=== PATIENT | female | born 1965 | race Caucasian/White ===

== ENCOUNTER 2016-08-14 12:55 | Inpatient (IN) | payer OTHER ==
[2016-08-14] VITALS (8 sets, daily range): BP systolic 120–143; BP diastolic 53–64
[~2016-08-14] VITALS: Ht 157.5 cm; Wt 83.0 kg
[~2016-08-14 12:55] MED LIST: ACCOLATE20 MG PO; ALPHAGAN P0.1 % OU; AMOXICILLIN500 MG PO; AUGMENTIN875TAB PO; BACTRIM DS1 TAB PO; CEFEPIME1 GM IM; CELECOXIB100 MG PO; CUBICIN500 MG IV; FLUTICASONE50 MCG; GLYBURIDE MICRON3 MG PO; HALOPERIDOL0.5 MG PO; HYDROCHLOROT50 MG PO; IPRATROPIU0.5 MG/3 M IN; LASIX40 MG PO; LEVAQUIN750 MG PO; LEVOTHYROXIN50 MC1 PO; LEVOTHYROXIN50 MCG PO; LIPITOR20 M1 PO; LISINOPRIL10 MG PO; MECLIZINE25 MG PO; METFORMIN500 MG PO; NEBULIZE1; NICOTINE T21 MG/PATC TD; PAXIL40 MG PO; POT CHLORIDE10 ME1 PO; PREDNISONE10 MG PO; PREDNISONE20 MG PO; PROVENTIL0.083 % INH; SYMBICORT1 AE1 IN; TRAMADOL HCL50 MG PO; TRAVATAN Z0.004 % OP; TRAZODONE50 MG PO; TRIFLUOPERAZ2 MG PO
[2016-08-14 13:46] LABS: HEMATOCRIT 49.9 % (37.0-47.0); HEMOGLOBIN 13.9 g/dl (12.0-16.0); IMMATURE GRANULOCYTES 0.1 % (0.0-1.0); MEAN CELL VOLUME 70.1 fL CALC (80.0-100.0); MEAN CORPUSCULAR HGB 19.5 pG CALC (26.0-32.0); MEAN CORPUSCULAR HGB CONC 27.9 g/L CALC (32.0-36.0); NEUT# 5.36 thou/uL (2.00-7.15); RED BLOOD COUNT 7.12 mill/uL (4.20-5.60); RED CELL DISTRI WIDTH 22.8 % (11.5-15.5)
[2016-08-14 13:59] LABS: INTERNATIONAL NORMALIZED RATIO 1.3 RATIO (0.7-1.3); PROTHROMBIN TIME 13.8 SECONDS (9.0-12.5)
[2016-08-14 14:02] LABS: ALKALINE PHOSPHATASE 78 u/l (38-126); ANION GAP 13 (6-22 (CALC)); BILIRUBIN, TOTAL 1.1 mg/dL (0.0-1.4); BUN 13 mg/dL (7-17); BUN/CREATININE RATIO 24 (12-20 (CALC)); CALCIUM 9.1 mg/dL (8.4-10.2); CARBON DIOXIDE 35 mmol/l (22-30); CHLORIDE 90 mmol/l (95-108); CREATININE 0.5 mg/dL (0.5-1.0); GFR > 60 ML/MIN (>=60 (CALC)); GFR FOR AFR.AMER. > 60 ML/MIN (>=60 (CALC)); GLUCOSE 122 mg/dL (65-105); POTASSIUM 4.1 mmol/l (3.5-5.1); SGOT/AST 33 u/l (14-36); SGPT/ALT 32 u/l (9-52); SODIUM 134 mmol/l (137-146); TOTAL PROTEIN 7.5 g/dL (6.3-8.2)
[2016-08-14 14:13] LABS: MYOGLOBIN 47 ng/mL (0 - 62)
[2016-08-14] MEDS ORDERED: OXYBUTYNIN5 M1 PO (14:54)
[2016-08-14] MEDS ORDERED: LIPITOR20 MG PO (14:55)
[2016-08-14] MEDS ORDERED: CELEBREX100 M1 PO (14:55)
[2016-08-14] MEDS ORDERED: FLUTICASONE50 MCG (14:56)
[2016-08-14] MEDS ORDERED: PAROXETINE10 MG PO (14:57)
[2016-08-14] MEDS ORDERED: LISINOPRIL5 MG PO (14:57)
[2016-08-14] MEDS ORDERED: COMBIGAN0.2 MG/0.5 OU (14:58)
[2016-08-14] MEDS ORDERED: LANTUS SOLOSTAR SC (14:59)
[2016-08-14] MEDS ORDERED: QVAR40 MCG IN (15:00)
[2016-08-14] MEDS ORDERED: ACCOLATE20 MG PO (15:00)
[2016-08-14] MEDS ORDERED: SYMBICORT1 AE1 IN (15:15)
[2016-08-14] MEDS ORDERED: LEVOTHYROXIN50 MCG PO (15:16)
[2016-08-14] MEDS ORDERED: IPRATROPIU0.5 MG/3 M IN (15:16)
[2016-08-14] MEDS ORDERED: METFORMIN500 MG PO (15:17)
[2016-08-14] MEDS ORDERED: PROVENTIL HFA IN (15:38)
[2016-08-14] MEDS ORDERED: FUROSEMIDE40 MG PO (15:38)
[2016-08-14] MEDS ORDERED: TRAMADOL HCL50 MG PO (15:39)
[2016-08-14] MEDS ORDERED: LYRICA50 MG PO (15:39)
[2016-08-14 17:31] LABS: URINE BLOOD DIPSTICK NEGATIVE (NEGATIVE); URINE CLARITY CLEAR; URINE COLOR YELLOW; URINE GLUCOSE - DIPSTICK NEGATIVE (NEGATIVE); URINE KETONE NEGATIVE (NEGATIVE); URINE LEUK ESTERASE NEGATIVE (NEGATIVE); URINE NITRITE - DIPSTICK NEGATIVE (Negative); URINE PROTEIN - DIPSTICK 100 mg/dL (NEG-TRACE); URINE SPECIFIC GRAVITY 1.025
[2016-08-14 17:58] LABS: URINE BILIRUBIN - DIPSTICK SMALL (NEGATIVE); URINE MUCUS FEW hpf (NONE-FEW); URINE SQUAMOUS EPITHELIAL CELL FEW EPI/hpf (0-FEW)
[2016-08-15] VITALS (10 sets, daily range): BP systolic 118–137; BP diastolic 48–63
[2016-08-15 06:19] LABS: HEMATOCRIT 45.6 % (37.0-47.0); HEMOGLOBIN 13.1 g/dl (12.0-16.0); IMMATURE GRANULOCYTES 0.5 % (0.0-1.0); MEAN CELL VOLUME 69.2 fL CALC (80.0-100.0); MEAN CORPUSCULAR HGB 19.9 pG CALC (26.0-32.0); MEAN CORPUSCULAR HGB CONC 28.7 g/L CALC (32.0-36.0); NEUT# 5.11 thou/uL (2.00-7.15); RED BLOOD COUNT 6.59 mill/uL (4.20-5.60); RED CELL DISTRI WIDTH 22.4 % (11.5-15.5)
[2016-08-15 06:32] LABS: ALBUMIN 3.4 g/dL (3.2-5.0); ALKALINE PHOSPHATASE 69 u/l (38-126); ANION GAP 14 (6-22 (CALC)); BILIRUBIN, TOTAL 0.9 mg/dL (0.0-1.4); BUN 14 mg/dL (7-17); BUN/CREATININE RATIO 29 (12-20 (CALC)); CALCIUM 9.1 mg/dL (8.4-10.2); CARBON DIOXIDE 36 mmol/l (22-30); CHLORIDE 90 mmol/l (95-108); CREATININE 0.5 mg/dL (0.5-1.0); GFR > 60 ML/MIN (>=60 (CALC)); GFR FOR AFR.AMER. > 60 ML/MIN (>=60 (CALC)); GLUCOSE 120 mg/dL (65-105); POTASSIUM 4.8 mmol/l (3.5-5.1); SGOT/AST 38 u/l (14-36); SGPT/ALT 31 u/l (9-52); SODIUM 135 mmol/l (137-146); TOTAL PROTEIN 6.4 g/dL (6.3-8.2)
[2016-08-16] VITALS (13 sets, daily range): BP systolic 100–140; BP diastolic 51–70
[2016-08-16 04:23] LABS: HEMATOCRIT 45.1 % (37.0-47.0); HEMOGLOBIN 12.7 g/dl (12.0-16.0); IMMATURE GRANULOCYTES 0.4 % (0.0-1.0); MEAN CELL VOLUME 70.2 fL CALC (80.0-100.0); MEAN CORPUSCULAR HGB 19.8 pG CALC (26.0-32.0); MEAN CORPUSCULAR HGB CONC 28.2 g/L CALC (32.0-36.0); NEUT# 8.08 thou/uL (2.00-7.15); RED BLOOD COUNT 6.42 mill/uL (4.20-5.60); RED CELL DISTRI WIDTH 22.4 % (11.5-15.5)
[2016-08-16 04:51] LABS: ANION GAP 14 (6-22 (CALC)); BUN 17 mg/dL (7-17); BUN/CREATININE RATIO 35 (12-20 (CALC)); CALCIUM 9.4 mg/dL (8.4-10.2); CARBON DIOXIDE 36 mmol/l (22-30); CHLORIDE 89 mmol/l (95-108); CREATININE 0.5 mg/dL (0.5-1.0); GFR > 60 ML/MIN (>=60 (CALC)); GFR FOR AFR.AMER. > 60 ML/MIN (>=60 (CALC)); GLUCOSE 106 mg/dL (65-105); POTASSIUM 5.1 mmol/l (3.5-5.1); SODIUM 133 mmol/l (137-146)
[2016-08-17] VITALS (10 sets, daily range): BP systolic 111–141; BP diastolic 59–70
[2016-08-17 05:15] LABS: HEMATOCRIT 46.1 % (37.0-47.0); HEMOGLOBIN 13.1 g/dl (12.0-16.0); IMMATURE GRANULOCYTES 0.5 % (0.0-1.0); MEAN CORPUSCULAR HGB 19.9 pG CALC (26.0-32.0); MEAN CORPUSCULAR HGB CONC 28.4 g/L CALC (32.0-36.0); NEUT# 7.18 thou/uL (2.00-7.15); RED BLOOD COUNT 6.59 mill/uL (4.20-5.60); RED CELL DISTRI WIDTH 22.4 % (11.5-15.5)
[2016-08-17 05:26] LABS: BUN 18 mg/dL (7-17); BUN/CREATININE RATIO 35 (12-20 (CALC)); CALCIUM 9.6 mg/dL (8.4-10.2); CARBON DIOXIDE 37 mmol/l (22-30); CHLORIDE 88 mmol/l (95-108); CREATININE 0.5 mg/dL (0.5-1.0); GFR > 60 ML/MIN (>=60 (CALC)); GFR FOR AFR.AMER. > 60 ML/MIN (>=60 (CALC)); GLUCOSE 139 mg/dL (65-105); MAGNESIUM 1.7 mg/dL (1.6-2.3); SODIUM 134 mmol/l (137-146)
[2016-08-17 05:46] LABS: ANION GAP 14 (6-22 (CALC)); POTASSIUM 5.4 mmol/l (3.5-5.1)
[2016-08-18 03:05] VITALS: BP 132/68
[2016-08-18 07:32] LABS: CARBON DIOXIDE 39 mmol/l (22-30)
[2016-08-18 07:53] VITALS: BP 147/74
[2016-08-18 08:04] LABS: BUN 22 mg/dL (7-17); BUN/CREATININE RATIO 40 (12-20 (CALC)); CALCIUM 10.1 mg/dL (8.4-10.2); CHLORIDE 86 mmol/l (95-108); CREATININE 0.6 mg/dL (0.5-1.0); GFR > 60 ML/MIN (>=60 (CALC)); GFR FOR AFR.AMER. > 60 ML/MIN (>=60 (CALC)); GLUCOSE 97 mg/dL (65-105); SODIUM 133 mmol/l (137-146)
[2016-08-18 08:05] LABS: ANION GAP 15 (6-22 (CALC)); POTASSIUM 5.2 mmol/l (3.5-5.1)
[2016-08-18] MEDS ORDERED: LOPRESSOR25 MG PO (09:20)
[2016-08-18] MEDS ORDERED: DOXYCYC MONO100 M1 PO (09:23)
[2016-08-18] MEDS ORDERED: PREDNISONE10 MG PO (09:23)
[2016-08-18 12:30] VITALS: BP 142/60
== END 2016-08-18 14:56 | DRG 189 ==
LOC: ENPENDDIS → ED 12:55 → ED-I 15:58 → ED 16:49 → ICU 16:50 → MS2 08-17 12:27
PROVIDERS: Emergency Medicine; Internal Medicine; ADMIT Internal Medicine; ATTEND Internal Medicine
PROC: 5A09357 Assistance with Respiratory Ventilation, Less than 24 Consecutive Hours, Continuous Positive Airway Pressure (ICD-10-PCS; principal; 2016-08-14)
DX: J96.22 Acute and chronic respiratory failure with hypercapnia (principal); E87.3 Alkalosis; I13.0 Hypertensive heart and chronic kidney disease with heart failure and stage 1 through stage 4 chronic kidney disease, or unspecified chronic kidney disease; J44.0 Chronic obstructive pulmonary disease with (acute) lower respiratory infection; E11.22 Type 2 diabetes mellitus with diabetic chronic kidney disease; I50.9 Heart failure, unspecified; J44.1 Chronic obstructive pulmonary disease with (acute) exacerbation; J96.21 Acute and chronic respiratory failure with hypoxia; J20.9 Acute bronchitis, unspecified; E11.40 Type 2 diabetes mellitus with diabetic neuropathy, unspecified; I27.81 Cor pulmonale (chronic); N18.1 Chronic kidney disease, stage 1; E11.51 Type 2 diabetes mellitus with diabetic peripheral angiopathy without gangrene; I25.10 Atherosclerotic heart disease of native coronary artery without angina pectoris; E03.9 Hypothyroidism, unspecified; E78.5 Hyperlipidemia, unspecified; Z99.81 Dependence on supplemental oxygen; Z87.891 Personal history of nicotine dependence
CPT/HCPCS: J1650

== ENCOUNTER 2017-01-29 16:23 | Emergency (ER) | payer OTHER ==
[~2017-01-29 16:23] MED LIST changes: +CELEBREX100 M1 PO; +COMBIGAN0.2 MG/0.5 OU; +DOXYCYC MONO100 M1 PO; +FUROSEMIDE40 MG PO; +LANTUS SOLOSTAR SC; +LIPITOR20 MG PO; +LISINOPRIL5 MG PO; +LOPRESSOR25 MG PO; +LYRICA50 MG PO; +OXYBUTYNIN5 M1 PO; +PAROXETINE10 MG PO; +PROVENTIL HFA IN; +QVAR40 MCG IN
== END 2017-01-29 16:34 | disposition left against medical advice (07) | DRG 951 ==
LOC: ED 16:23 → LWOBS 16:34
DX: Z91.19 Patient's noncompliance with other medical treatment and regimen (principal)

== ENCOUNTER 2017-03-17 13:20 | Emergency (ER) | payer OTHER ==
[~2017-03-17] VITALS: Ht 157.5 cm; Wt 103.4 kg
[2017-03-17 14:39] LABS: HEMATOCRIT 47.9 % (37.0-47.0); HEMOGLOBIN 15.8 g/dl (12.0-16.0); IMMATURE GRANULOCYTES 0.6 % (0.0-1.0); MEAN CELL VOLUME 84.9 fL CALC (80.0-100.0); NEUT# 6.01 thou/uL (2.00-7.15); RED BLOOD COUNT 5.64 mill/uL (4.20-5.60); RED CELL DISTRI WIDTH 14.3 % (11.5-15.5)
[2017-03-17 14:50] LABS: ALBUMIN 4.1 g/dL (3.2-5.0); ALKALINE PHOSPHATASE 95 u/l (38-126); ANION GAP 17 (6-22 (CALC)); BILIRUBIN, TOTAL 0.7 mg/dL (0.0-1.4); BUN 46 mg/dL (7-17); BUN/CREATININE RATIO 53 (12-20 (CALC)); CALCIUM 9.3 mg/dL (8.4-10.2); CARBON DIOXIDE 34 mmol/l (22-30); CHLORIDE 89 mmol/l (95-108); CREATININE 0.9 mg/dL (0.5-1.0); GFR > 60 ML/MIN (>=60 (CALC)); GFR FOR AFR.AMER. > 60 ML/MIN (>=60 (CALC)); GLUCOSE 346 mg/dL (65-105); POTASSIUM 4.3 mmol/l (3.5-5.1); SGOT/AST 42 u/l (14-36); SGPT/ALT 57 u/l (9-52); SODIUM 136 mmol/l (137-146); TOTAL PROTEIN 6.8 g/dL (6.3-8.2)
[2017-03-17 15:02] LABS: MYOGLOBIN 94 ng/mL (0 - 62)
[2017-03-17] MEDS ORDERED: PREDNISONE50 MG PO (15:08)
[2017-03-17 15:15] VITALS: BP 103/55
== END 2017-03-17 15:20 | disposition home or self-care (01) | DRG 192 ==
LOC: ED 13:20
PROVIDERS: Emergency Medicine
DX: J44.1 Chronic obstructive pulmonary disease with (acute) exacerbation (principal); I50.9 Heart failure, unspecified; I12.9 Hypertensive chronic kidney disease with stage 1 through stage 4 chronic kidney disease, or unspecified chronic kidney disease; N18.1 Chronic kidney disease, stage 1

== ENCOUNTER 2017-06-23 12:01 | Emergency (ER) | payer OTHER ==
[~2017-06-23] VITALS: Ht 157.5 cm; Wt 104.5 kg
[~2017-06-23 12:01] MED LIST changes: +PREDNISONE50 MG PO
[2017-06-23] MEDS ORDERED: HYDROCO/APAP1 TA9 PO (13:22)
[2017-06-23 13:31] VITALS: BP 125/62
== END 2017-06-23 13:40 | disposition home or self-care (01) | DRG 556 ==
LOC: ED 12:01
PROC: 2W3QX1Z Immobilization of Right Lower Leg using Splint (ICD-10-PCS; principal; 2017-06-23)
DX: M79.671 Pain in right foot (principal); W01.0XXA Fall on same level from slipping, tripping and stumbling without subsequent striking against object, initial encounter; Y93.9 Activity, unspecified; Y92.000 Kitchen of unspecified non-institutional (private) residence as the place of occurrence of the external cause

== ENCOUNTER 2018-05-20 15:44 | Emergency (ER) | payer OTHER ==
[~2018-05-20] VITALS: Ht 157.5 cm; Wt 103.6 kg
[~2018-05-20 15:44] MED LIST changes: +HYDROCO/APAP1 TA9 PO
[2018-05-20] MEDS ORDERED: AMOXICILLIN875 MG PO (16:34)
[2018-05-20] MEDS ORDERED: TRAMADOL HYDROC50 MG PO (16:34)
[2018-05-20 16:39] VITALS: BP 155/72
== END 2018-05-20 16:48 | disposition home or self-care (01) ==
LOC: ED 15:44
DX: H66.92 Otitis media, unspecified, left ear (principal); J02.9 Acute pharyngitis, unspecified; I11.0 Hypertensive heart disease with heart failure; I50.9 Heart failure, unspecified; J44.9 Chronic obstructive pulmonary disease, unspecified; E11.9 Type 2 diabetes mellitus without complications; I25.10 Atherosclerotic heart disease of native coronary artery without angina pectoris; F32.9 Major depressive disorder, single episode, unspecified; F41.9 Anxiety disorder, unspecified; Z79.4 Long term (current) use of insulin; Z99.81 Dependence on supplemental oxygen

== ENCOUNTER 2018-10-25 12:42 | Emergency (ER) | payer OTHER ==
[~2018-10-25] VITALS: Ht 157.5 cm; Wt 104.0 kg
[~2018-10-25 12:42] MED LIST changes: +AMOXICILLIN875 MG PO; +TRAMADOL HYDROC50 MG PO
[2018-10-25 14:12] LABS: HEMATOCRIT 56.1 % (37.0-47.0); IMMATURE GRANULOCYTES 0.5 % (0.0-5.0); MEAN CELL VOLUME 84.9 fL CALC (80.0-100.0); MEAN CORPUSCULAR HGB 27.2 pG CALC (26.0-32.0); MEAN CORPUSCULAR HGB CONC 32.1 g/L CALC (32.0-36.0); NEUT# 4.25 thou/uL (2.00-7.15); RED BLOOD COUNT 6.61 mill/uL (4.20-5.60); RED CELL DISTRI WIDTH 19.6 % (11.5-15.5)
[2018-10-25 14:21] LABS: INTERNATIONAL NORMALIZED RATIO 1.1 RATIO (0.7-1.3); PROTHROMBIN TIME 11.2 SECONDS (9.0-12.5)
[2018-10-25 14:23] LABS: ALBUMIN 4.2 g/dL (3.2-5.0); ALKALINE PHOSPHATASE 116 u/l (38-126); ANION GAP 12 (6-22 (CALC)); BILIRUBIN, TOTAL 0.8 mg/dL (0.0-1.4); BUN 12 mg/dL (7-17); BUN/CREATININE RATIO 27 (12-20 (CALC)); CARBON DIOXIDE 30 mmol/l (22-30); CREATININE 0.4 mg/dL (0.5-1.0); GFR > 60 ML/MIN (>=60 (CALC)); GFR FOR AFR.AMER. > 60 ML/MIN (>=60 (CALC)); POTASSIUM 4.3 mmol/l (3.5-5.1); SGOT/AST 39 u/l (14-36); SODIUM 138 mmol/l (137-146); TOTAL PROTEIN 7.2 g/dL (6.3-8.2)
[2018-10-25 14:25] LABS: CHLORIDE 100 mmol/l (95-108)
[2018-10-25 14:35] LABS: MYOGLOBIN 29 ng/mL (0 - 62)
[2018-10-25] MEDS ORDERED: PROAIR HFA108 MCG/AC IN (15:35)
[2018-10-25] MEDS ORDERED: TRELEGY ELLIPTA1 AER IN (15:35)
[2018-10-25] MEDS ORDERED: LEVEMIR FL100 UNIT/M SC (15:36)
[2018-10-25] MEDS ORDERED: NOVOLOG FL100 UNIT/M SC (15:37)
[2018-10-25] MEDS ORDERED: HYDROXYZ HCL10 MG PO (15:38)
[2018-10-25] MEDS ORDERED: METFORMIN1000 MG PO (15:38)
[2018-10-25] MEDS ORDERED: LEVOTHYROXIN50 MCG PO (15:39)
[2018-10-25] MEDS ORDERED: METOPROL TAR25 MG PO (15:46)
[2018-10-25] MEDS ORDERED: LASIX40 MG PO (15:47)
[2018-10-25] MEDS ORDERED: DULOXETINE HCL60 MG PO (15:47)
[2018-10-25] MEDS ORDERED: PAXIL40 MG PO (15:48)
[2018-10-25] MEDS ORDERED: LISINOPRIL2.5 MG PO (15:49)
[2018-10-25] MEDS ORDERED: SPIRONOLACTONE25 MG PO (15:50)
[2018-10-25] MEDS ORDERED: ATORVASTATIN CA20 MG PO (15:50)
[2018-10-25] MEDS ORDERED: CELEBREX200 M1 PO (15:51)
[2018-10-25 16:02] VITALS: BP 144/69
== END 2018-10-25 16:00 | disposition home or self-care (01) ==
LOC: ED 12:42
PROVIDERS: Emergency Medicine
DX: S80.821A Blister (nonthermal), right lower leg, initial encounter (principal); R06.02 Shortness of breath; I10 Essential (primary) hypertension; E11.9 Type 2 diabetes mellitus without complications; Z79.4 Long term (current) use of insulin; F17.200 Nicotine dependence, unspecified, uncomplicated

== ENCOUNTER 2019-04-12 15:13 | Inpatient (IN) | payer OTHER ==
[~2019-04-12] VITALS: Ht 157.5 cm; Wt 101.4 kg
[~2019-04-12 15:13] MED LIST changes: +ATORVASTATIN CA20 MG PO; +CELEBREX200 M1 PO; +DULOXETINE HCL60 MG PO; +HYDROXYZ HCL10 MG PO; +LEVEMIR FL100 UNIT/M SC; +LISINOPRIL2.5 MG PO; +METFORMIN1000 MG PO; +METOPROL TAR25 MG PO; +NOVOLOG FL100 UNIT/M SC; +PROAIR HFA108 MCG/AC IN; +SPIRONOLACTONE25 MG PO; +TRELEGY ELLIPTA1 AER IN
--- NOTE | 2019-04-12 15:55 | NUR ---
PT TO ROOM VIA WHEELCHAIR.
--- NOTE | 2019-04-12 16:45 | NUR ---
PT RESTING ON STRETCHER WITH EYES CLOSED NO S/S OF DISTRESS NOTED; VSS; WILL CONTINUE TO MONITOR
--- NOTE | 2019-04-12 17:31 | NUR ---
PER BOILER OR ENGINE OPERATOR AT TRANSPORT CALL AND HE WILL COME AND PICK HER UP IF DISCHARGED.
[2019-04-12 17:32] LABS: HEMATOCRIT 55.1 % (37.0-47.0); IMMATURE GRANULOCYTES 0.5 % (0.0-5.0); MEAN CELL VOLUME 83.4 fL CALC (80.0-100.0); MEAN CORPUSCULAR HGB 25.7 pG CALC (26.0-32.0); MEAN CORPUSCULAR HGB CONC 30.9 g/L CALC (32.0-36.0); NEUT# 4.17 thou/uL (2.00-7.15); RED BLOOD COUNT 6.61 mill/uL (4.20-5.60); RED CELL DISTRI WIDTH 18.9 % (11.5-15.5)
[2019-04-12] MEDS ORDERED: SYMBICORT1 AE1 IN (17:38)
[2019-04-12] MEDS ORDERED: PROTONIX40 M2 PO (17:39)
[2019-04-12 17:52] LABS: ALBUMIN 3.7 g/dL (3.2-5.0); ALKALINE PHOSPHATASE 112 u/l (38-126); ANION GAP 13 (6-22 (CALC)); BILIRUBIN, TOTAL 0.7 mg/dL (0.0-1.4); BUN 10 mg/dL (7-17); BUN/CREATININE RATIO 23 (12-20 (CALC)); CARBON DIOXIDE 30 mmol/l (22-30); CHLORIDE 97 mmol/l (95-108); CREATININE 0.4 mg/dL (0.5-1.0); GFR > 60 ML/MIN (>=60 (CALC)); GFR FOR AFR.AMER. > 60 ML/MIN (>=60 (CALC)); POTASSIUM 3.8 mmol/l (3.5-5.1); SGOT/AST 30 u/l (14-36); SODIUM 137 mmol/l (137-146); TOTAL PROTEIN 6.6 g/dL (6.3-8.2)
[2019-04-12 18:03] LABS: MYOGLOBIN 24 ng/mL (0 - 62)
--- NOTE | 2019-04-12 18:07 | NUR ---
PT GIVEN SANDWITCH AND SODA AT THIS TIME; VSS; PT DENIES ANY OTHER NEEDS AT THIS TIME; CALL LIGHT WITHIN REACH; WILL CONTINUE TO MONITOR
[2019-04-12 18:33] LABS: URINE BILIRUBIN - DIPSTICK NEGATIVE (NEGATIVE); URINE BLOOD DIPSTICK TRACE-INTACT (NEGATIVE); URINE COLOR YELLOW; URINE GLUCOSE - DIPSTICK >=1000 mg/dL (NEGATIVE); URINE KETONE NEGATIVE (NEGATIVE); URINE LEUK ESTERASE NEGATIVE (NEGATIVE); URINE NITRITE - DIPSTICK NEGATIVE (Negative); URINE PROTEIN - DIPSTICK 100 mg/dL (NEG-TRACE); URINE SPECIFIC GRAVITY >=1.030; URINE UROBILINOGEN - DIPSTICK 0.2 E.U./dL (0.2)
[2019-04-12 18:45] LABS: URINE BACTERIA MANY hpf; URINE RBC 0-2 RBC/hpf (0-5); URINE SQUAMOUS EPITHELIAL CELL FEW EPI/hpf (0-FEW)
--- NOTE | 2019-04-12 18:57 | NUR ---
ATTEMPTED TO CALL REPORT, NURSE NOT AVAILABLE AT THIS TIME
--- NOTE | 2019-04-12 19:05 | NUR ---
PT RESTING. NAD. VSS. NO C/O. LUNGS CLEAR.
--- NOTE | 2019-04-12 19:27 | NUR ---
REPORT TO KADEEM/NURSE-MED SURG. PT RESTING. NO C/O. VSS.
--- NOTE | 2019-04-12 20:25 | NUR ---
TO FLOOR VIA STRETCHER. POCKET MONITOR APPLIED. O2 @ 4 LPM NC. PT A/O. TUCKED INTO BED. GIVEN CALL LIGHT. ADVISED NURSE PT WAS IN ROOM.
--- NOTE | 2019-04-12 20:30 | NUR ---
02 TAKE TO FLOOR VIA SECURITY. LABELED WITH PT'S NAME. TO PT ROOM.
--- NOTE | 2019-04-12 21:00 | NUR ---
PT. ARRIVED TO THE FLOOR VIA STRETCHER ACCOMPANIED BY ER NURSE @2034. ADMISSION ASSESSMENT COMPLETED. SPO2 85% ON 4LITERS/MIN PER NC AND BUMPED UP TO 5LITERS/MIN AND SPO2 UP 88-90%. PER PT. HER NORMAL SPO2 IS IN THE 80'S AND SOMETIMES EVEN IN THE MID 70'S. PT. DOES REPORT RIGHT SIDED WEAKNESS THE PAST MONTH AND HAS HAD MULTIPLE FALLS AT HOME PER PT.. NEURO CHECK PERFORMED AND WNL AT THIS TIME. PT. NOTIFIED THIS TUBULAR RIVETER OF MEDICATIONS NEEDED FOR TONIGHT. WILL CALL PROVIDER. ORTHOSTATIC B/P AND PULSE OBTAINED DUE TO PT. REPORTING RIGHT SIDED WEAKNESS AND MULTIPLE FALLS; SEE INTERVENTION CHARTED. SARAH HOSE APPLIED TO BLE. PROVIDED WITH AN INCENTIVE SPIROMETER AND EDUCATION GIVEN. PT. ABLE TO PULL 500 AND DID A SET OF 10. O2 EXTENSION APPLIED. INSTRUCTED TO CALL FOR ANY AND ALL NEEDS. CALL LIGHT IS IN REACH. TELEMETRY IN PLACE.
[2019-04-12 21:15] VITALS: BP 134/70
[2019-04-12 21:20] VITALS: BP 132/70
[2019-04-12 21:25] VITALS: BP 136/68
--- NOTE | 2019-04-12 21:45 | NUR ---
NOTIFIED DR. WREN OF HOME MEDICATIONS NEEDED FOR TONIGHT AND OF BS OF 290. ALSO NOTIFIED THAT PT. IS REPORTING RIGHT SIDED WEAKNESS X1 MONTH AND FALLS AT HOME THE PAST MONTH. PER MD THIS CAN BE ADRESSESSED WITH PHYSICIAN TOMORROW UPON ROUNDS. WILL PASS ON TO DAYSHIFT. NEW ORDERS RECEIVED FOR MEDICATIONS AND TO CARRY OUT.
--- NOTE | 2019-04-12 22:24 | NUR ---
PT. DROWSY AND AWAKENED FOR MEDICATIONS, NOTIFIED HER THAT WE DO NOT CARRY HER DOSE OF [place], PT. OKAY WITH THIS. SANDWICH AND JUICE PROVIDED. O2 INFUSING PER NC. INSTRUCTED TO CALL FOR ALL OOB NEEDS. CALL LIGHT IS IN REACH.
[2019-04-13] VITALS (7 sets, daily range): BP systolic 110–137; BP diastolic 42–70
--- NOTE | 2019-04-13 00:04 | NUR ---
RESTING IN BED ON RIGHT SIDE WITH EYES CLOSED; RESP. EVEN AND UNLABORED. CALL LIGHT IS IN REACH.
--- NOTE | 2019-04-13 03:20 | NUR ---
pt. awakened and found with o2 off and spo2 74% reapplied o2 @5liters/min per nc and up to 89-90%. vss. po fluids offered, encouraged to call for any needs. call light is in reach.
--- NOTE | 2019-04-13 07:45 | NUR ---
REPORT RECEIVED FROM PEYTON QUAN. PT ASSISTED FROM SHOWER BACK TO BED. SITTING ON SIDE OF BED NOW. O2 @ 4L VIA NC. PT. SOB W/ EXERTION. ALERT AND ORIENTED. EXPIRATORY WHEEZING HEARD THROUGHOUT. PRODUCTIVE COUGH, W/ CLEAR THIN SPUTUM. TELE UNIT IN PLACE. BLOOD GLUCOSE 383 AT THIS TIME. ACCUCHECKS AND SCHEDULE REVIEWED WITH PT. I.S. AT BEDSIDE. 500 ML ICNENTIVE VOLUME ACHIEVED GOAL OF 1000 ML SET. USE OF I.S. ENCOURAGED. BOWEL SOUNDS PRESENT. REPORTS RIGHT SIDED WEAKNESS. NO NEURO DEFICITS NOTED. PUPILS 4 MM, SLUGGISH REACTION BILATERALLY., REPORTS HX GLAUCOMA. CURB ATTENDANT STRONG AND EQUAL. DORSI FLEXION STRONG AND EQUAL. LOWER EXTREMITIES DISCOLORED, RED/PURPLE, REPORTS HX PVD. NO NUMBNESS OR TINGLING AT THIS TIME. BLACKED AREA TO BOTTOM OF LEFT GREAT TOE X 2, 0.5 X 0.5 CM. CLOSED, NO DRAINAGE OR ODOR. #20 LFA, FREE OF REDNESS, SWELLING, FLUSHES WELL. CALL LIGHT REVIEWED AND IN REACH. FALL PRECAUTIONS REINFORCED. PT STATES UNDERSTANDING OF INFORMATION.
--- NOTE | 2019-04-13 12:35 | NUR ---
DR. VO IN TO SEE PT. AT THIS TIME. PLAN OF CARE UPDATED.
[2019-04-13 14:00] LABS: MAGNESIUM 1.4 mg/dL (1.6-2.3)
--- NOTE | 2019-04-13 15:18 | NUR ---
PATIENT HAD PNEUMONIA VACCINE IN 2012 AND WILL NOT NEED ANOTHER TIL SHE TURNS 65.
--- NOTE | 2019-04-13 16:44 | NUR ---
ACCUCHECK READING "CRITICAL RESULT" WITH NO VALUE. STAT BLOOD GLUCOSE DRAW ORDERED. LAB NOTIFIED. WESTLEY FRIAS NOTIFIED.
--- NOTE | 2019-04-13 20:31 | NUR ---
ASSESSMENT COMPLETED. PT. SITTING UP IN CHAIR. UPDATED ON POC AND EDUCATED ON DIABETIC DIET. PT. CONTINUES TO ASK FOR NUMEROUS CUPS OF COFFEE AND SNACKS. BS READING CRITICAL HIGH AND STAT GLUCOSE ORDERED; WILL AWAIT RESULT AND NOTIFY MD PYTHON WEB DEVELOPER. UPDATED PT. ON POC. B/P REASSESSED AND IS 107/44. IV SITE PATENT AND FLUSHES WELL. SARAH HOSE IN PLACE TO BLE. O2 INFUSING ON HIGH FLOW @5LITERS/MIN PER NC. CALL LIGHT IS IN REACH. WILL CONTINUE TO MONITOR.
--- NOTE | 2019-04-13 21:15 | NUR ---
NOTIFIED DR. CAMPUZANO OF LOW B/P 107/44 AND OF SCHEDULED LOPRESSOR; ORDERS RECEIVED TO HOLD LOPRESSOR CARMELINA. ALSO NOTIFIED HIM OF CRITICAL BS 531 AND OF ORDERED NOVOLOG FOR PT. TO RECEIVE WELL DINNER INSULIN PT. WAS GIVEN WELL LEVEMIR THIS AM, WELL PT. RECEIVED SOLU-MEDROL. NEW ORDERS RECEIVED AND TO BE CARRIED OUT. CALL LIGHT IS IN REACH.
--- NOTE | 2019-04-13 23:25 | NUR ---
PT. RERPOTS SHE IS DIZZY AND THINKS HER B/P IS LOW. VS OBTAINED AND VSS; SEE INTERVENTION. PT. ASSISTED TO THE BATHROOM AND INSTRUCTED TO PULL CORD WHEN FINISHED.
--- NOTE | 2019-04-14 04:00 | NUR ---
RESTING IN BED WATCHING TV. NO DISTRESS NOTED; DENIES NEEDS/PAIN. CALL LIGHT IS IN REACH.
[2019-04-14 04:05] VITALS: BP 113/50
[2019-04-14 05:15] LABS: HEMATOCRIT 55.5 % (37.0-47.0); HEMOGLOBIN 17.4 g/dl (12.0-16.0); IMMATURE GRANULOCYTES 0.4 % (0.0-5.0); MEAN CELL VOLUME 81.1 fL CALC (80.0-100.0); MEAN CORPUSCULAR HGB 25.4 pG CALC (26.0-32.0); MEAN CORPUSCULAR HGB CONC 31.4 g/L CALC (32.0-36.0); NEUT# 8.37 thou/uL (2.00-7.15); RED BLOOD COUNT 6.84 mill/uL (4.20-5.60); RED CELL DISTRI WIDTH 18.4 % (11.5-15.5)
[2019-04-14 05:37] LABS: BUN 29 mg/dL (7-17); BUN/CREATININE RATIO 51 (12-20 (CALC)); CARBON DIOXIDE 29 mmol/l (22-30); CHLORIDE 89 mmol/l (95-108); CREATININE 0.6 mg/dL (0.5-1.0); GFR > 60 ML/MIN (>=60 (CALC)); GFR FOR AFR.AMER. > 60 ML/MIN (>=60 (CALC)); SODIUM 132 mmol/l (137-146)
[2019-04-14 05:39] LABS: ANION GAP 19 (6-22 (CALC)); MAGNESIUM 2.1 mg/dL (1.6-2.3); POTASSIUM 4.6 mmol/l (3.5-5.1)
[2019-04-14 07:33] VITALS: BP 128/56
--- NOTE | 2019-04-14 07:45 | NUR ---
AWAKE ON ROUNDS. SITTING UP IN BEDSIDE CHAIR. RESP NON-LABORED. BREATHS OUNDS REVEAL EXPIRATORY WHEEZE THROUGHOUT. O2 ON AT 5 L HF NC. ABD SOFT WITH BOWEL SOUNDS PRESENT. PATIENT STATES SHE HAD A BM THIS MORNING. SALINE LOCK #20 IN LFA, SITE BENIGN. DENIES NEEDS AT THIS TIME. CALL LI IN REACH.
[2019-04-14 10:59] VITALS: BP 120/51
--- NOTE | 2019-04-14 11:30 | NUR ---
UP IN ROOM AND AMBULATED IN HALLWATS WITH ASSIST AND O2 IN USE.
[2019-04-14] MEDS ORDERED: DOXYCYCL HYC100 MG PO (12:52)
[2019-04-14] MEDS ORDERED: PREDNISONE10 MG PO (12:52)
--- NOTE | 2019-04-14 15:18 | NUR ---
Discharge instructions given. Patient verbalizes understanding of same. Discharged in stable condition via Wheelchair to Home with family. All belongings sent with pt.
[2019-04-14] MEDS ORDERED: KEFLEX500 MG PO (20:21)
== END 2019-04-14 15:12 | disposition home health service (06) | DRG 193 ==
LOC: ED 15:13 → ED-I 18:19 → ED 18:37 → MS2 18:38
PROVIDERS: Emergency Medicine; Nurse Practitioner Family; ADMIT Internal Medicine; ATTEND Internal Medicine
DX: J18.9 Pneumonia, unspecified organism (principal); J96.22 Acute and chronic respiratory failure with hypercapnia; J96.21 Acute and chronic respiratory failure with hypoxia; D68.0 Von Willebrand disease; N39.0 Urinary tract infection, site not specified; J43.9 Emphysema, unspecified; I11.0 Hypertensive heart disease with heart failure; I50.9 Heart failure, unspecified; E11.65 Type 2 diabetes mellitus with hyperglycemia; I25.10 Atherosclerotic heart disease of native coronary artery without angina pectoris; E03.9 Hypothyroidism, unspecified; E11.51 Type 2 diabetes mellitus with diabetic peripheral angiopathy without gangrene; E86.0 Dehydration; E78.5 Hyperlipidemia, unspecified; T38.1X6A Underdosing of thyroid hormones and substitutes, initial encounter; F17.210 Nicotine dependence, cigarettes, uncomplicated; B96.20 Unspecified Escherichia coli [E. coli] as the cause of diseases classified elsewhere; Z23 Encounter for immunization; Z99.81 Dependence on supplemental oxygen; Z79.4 Long term (current) use of insulin; Z91.128 Patient's intentional underdosing of medication regimen for other reason
CPT/HCPCS: J3475

== ENCOUNTER 2019-11-09 15:13 | Observation (INO) | payer OTHER ==
[~2019-11-09] VITALS: Ht 157.5 cm; Wt 94.0 kg
[~2019-11-09 15:13] MED LIST changes: +DOXYCYCL HYC100 MG PO; +KEFLEX500 MG PO; +METFORMIN HCL1000 MG PO; -METFORMIN1000 MG PO; +PROTONIX40 M2 PO
--- NOTE | 2019-11-09 15:40 | NUR ---
PT TO ROOM VIA WC FOR TRIAGE
--- NOTE | 2019-11-09 16:12 | NUR ---
PT MEDICATED PER MAR FOR LEFT FOOT PAIN RATING 10 OUT OF 10; MONITORING DEVICES IN PLACE; CALL LIGHT WITHIN REACH; WILL CONTINUE TO MONITOR
[2019-11-09 16:53] LABS: HEMATOCRIT 52.4 % (37.0-47.0); HEMOGLOBIN 17.8 g/dl (12.0-16.0); MEAN CELL VOLUME 86.9 fL CALC (80.0-100.0); MEAN CORPUSCULAR HGB 29.5 pG CALC (26.0-32.0); RED BLOOD COUNT 6.03 mill/uL (4.20-5.60)
[2019-11-09 16:54] LABS: BASO% 1 % (0-3); EOS% 3 % (0-8); LYMPH% 27 % (15-41); MONO% 9 % (2-13); NEUT% 60 % (42-76); PLATELET COUNT 120 thou/uL (130-400); RED CELL DISTRI WIDTH 13.8 % (11.5-15.5)
[2019-11-09 17:01] LABS: NEUT# 3.42 thou/uL (2.00-7.15)
--- NOTE | 2019-11-09 17:20 | NUR ---
PT RETURNED FROM RADIOLOGY AT THIS TIME; SANDWITCH AND DRINK GIVEN; PT ADVISED OF CONTINUED WAIT TIME; VSS; WILL CONTINUE TO MONITOR; CALL LIGHT WITHIN REACH
--- NOTE | 2019-11-09 18:13 | NUR ---
PT RESTING ON STRETCHER WITH EYES CLOSED; MONITORING DEVICES IN PLACE; VSS; WILL CONTINUE TO MONITOR
--- NOTE | 2019-11-09 18:54 | NUR ---
REPORT GIVEN TO PEYTON RIVERA
--- NOTE | 2019-11-09 19:00 | NUR ---
RESTING QUIETLY. AWAITING TEST RESULTS.
--- NOTE | 2019-11-09 21:10 | NUR ---
Admission Note Report Given to: DERICK REMY Transported by: Wheelchair X Stretcher Transported with: X Nurse Transporter X Patent IV X O2 Manager [employer] Location: ICU X [facility]
--- NOTE | 2019-11-09 21:16 | NUR ---
TRANSPORTED TO FLOOR VIA STRETCHER
--- NOTE | 2019-11-09 21:24 | NUR ---
PT ARRIVED VIA STRETCHER ACCOMPAINED BY ER STAFF. PT DROWSY, ORIENTED X3. PT DENIES ANY CURRENT PAIN. NO APPARENT DISTRESS NOTED. ON O2 2L/M VIA NC, HOME DEPENDANT. MEAL PROVIDED UPON REQUEST. PT ORIENTED TO ROOM AND CALL LIGHT SYSTEM. DISCUSSED POC. PT VERBALIZED UNDERSTANDING. WOUND TO LEFT GREAT TOE QUALITY PROCESS LEAD. ACCU CHECK 289 AT THIS TIME. CALL LIGHT WITHIN REACH. WILL CONTINUE TO MONITOR.
[2019-11-09 21:33] VITALS: BP 140/79
--- NOTE | 2019-11-09 23:06 | NUR ---
COFFEE AND SNACK PROVIDED UPON REQUEST. NO APPARENT DISTRESS NOTED. ENCOURAGED PT TO LAY BACK IN BED FOR COMFORT AND SAFETY PRECAUTIONS. PT REFUSED AND WISHED TO SIT UP AT SIDE OF BED. PT VERY DROWSY FALLING ASLEEP WHILE PREFORMING SIMPLE TASKS AND DURING CONVERSATION. WILL CONTINUE TO MONITOR.
--- NOTE | 2019-11-09 23:47 | NUR ---
PT FELL ASLEEP WHILE DRINKING COFFEE AND SPILLED IT ON BED AND GOWN. NO INJURIES NOTED. LINENS CHANGE AND NEW GOWN PROVIDED. PT CHANGED FROM GOWN AND DRESSED IN CLOTHES FROM HOME. PT REQUEST MORE COFFEE, PROVIDED AT THIS TIME. PROGRAM COORDINATOR AGAIN ENCOURAGED PT TO SIT BACK IN THE BED FOR SAFETY. PT STATES SHE WILL IN A LITTLE WHILE. WILL CONTINUE TO MONITOR.
--- NOTE | 2019-11-10 03:55 | NUR ---
PT RESTING IN BED WITH EYES CLOSED. NO APPARENT DISTRESS NOTED. RESPIRATIONS EVEN AND UNLABORED. PT WAKES EASILY. VSS. COFFEE PROVIDED UPON REQUEST. CALL LIGHT WITHIN REACH WILL CONTINUE TO MONITOR.
[2019-11-10 04:00] VITALS: BP 119/65
[2019-11-10 04:59] LABS: HEMOGLOBIN 17.1 g/dl (12.0-16.0); IMMATURE GRANULOCYTES 0.2 % (0.0-5.0); MEAN CELL VOLUME 86.8 fL CALC (80.0-100.0); MEAN CORPUSCULAR HGB 28.5 pG CALC (26.0-32.0); MEAN CORPUSCULAR HGB CONC 32.9 g/dL CAL (32.0-36.0); NEUT# 2.64 thou/uL (2.00-7.15); RED BLOOD COUNT 5.99 mill/uL (4.20-5.60)
[2019-11-10 05:34] LABS: ALBUMIN 3.8 g/dL (3.2-5.0); ALKALINE PHOSPHATASE 124 u/l (38-126); ANION GAP 10 (6-22 (CALC)); BUN 15 mg/dL (7-17); BUN/CREATININE RATIO 31 (12-20 (CALC)); CARBON DIOXIDE 31 mmol/l (22-30); CHLORIDE 97 mmol/l (95-108); CREATININE 0.5 mg/dL (0.5-1.0); GFR > 60 ML/MIN (>=60 (CALC)); GFR FOR AFR.AMER. > 60 ML/MIN (>=60 (CALC)); POTASSIUM 4.2 mmol/l (3.5-5.1); SGOT/AST 46 u/l (14-36); SODIUM 134 mmol/l (137-146); TOTAL PROTEIN 6.2 g/dL (6.3-8.2)
[2019-11-10 05:35] LABS: BILIRUBIN, TOTAL 1.1 mg/dL (0.0-1.4)
--- NOTE | 2019-11-10 08:05 | NUR ---
ASSISTED PT TO SIT IN THE CHAIR. ASSESSMENT DONE. PT IS A&O X3 BUT DROWSY. PT DENIES PAIN AT THIS TIME. O2 AT 3L VIA NC. LUNGS SOUND COARSE. IV SITE APPEARS HEALTHY. PT DENIES ANY NEEDS AT THIS TIME. SAFETY PRECAUTIONS REINFORCED AND CALL LIGHT IN REACH.
[2019-11-10 08:07] VITALS: BP 125/60
--- NOTE | 2019-11-10 08:34 | NUR ---
REQUESTING MD ORDER FOR PHYS THERAPY EVALUATION. PT WILL BENEFIT FROM PHYS THERAPY INTERVENTION.
--- NOTE | 2019-11-10 09:45 | NUR ---
CALLED DR. VERMA AND SPOKE TO HIM ABOUT HIS CONSULTATION FOR THIS PT.
--- NOTE | 2019-11-10 12:15 | NUR ---
PT IS SITTING IN CHAIR EATING HER LUNCH. WITH NO S/S OF DISTRESS NOTED. DR. VERMA IN ROOM TO ASSESS PT. CALL LIGHT IN REACH.
--- NOTE | 2019-11-10 12:49 | NUR ---
DR. ORANTES VIA TABLET ASSESSING PT.
--- NOTE | 2019-11-10 14:14 | NUR ---
S: DOROTEO NICHOLS is a 53 F who presents with osteomyelitis of the left toe. She has a history of DM, COPD/emphysema, PAD/PVD, Von Willenbrands disease, hypothyroidism, RBBB, CHF, depression/anxiety, glaucoma, hyperlipidemia, and pulmonary hypertension. All medications in patient's chart were reviewed. O: VS: BP 125/60 mmHg, 73 bpm, RR 18 BPM, T 96.9 F W 74.389 kg, HT 157.5 cm, Scr= 0.5 mg/dL, CrCl= 102.4 ml/min A: Blood culture is pending. P: Vancomycin ordered for pharmacy to dose. Start Vancomycin 1,250 mg IV Q12H. Vancomycin trough is drawn before the 4th dose on 11/10 @ 2330. Vancomycin goal trough is between 15-20 mcg/ml. Pharmacy will follow and or advise on antibiotics use as needed.
[2019-11-10] MEDS ORDERED: ACCOLATE20 MG PO (14:32)
[2019-11-10] MEDS ORDERED: CELEBREX100 M1 PO (14:34)
[2019-11-10] MEDS ORDERED: ALBUTEROL1.25 MG/3 IN (14:34)
[2019-11-10] MEDS ORDERED: FLONASE SE27.5 MCG/S (14:35)
[2019-11-10] MEDS ORDERED: CYMBALTA60 MG PO (14:35)
[2019-11-10] MEDS ORDERED: LISINOPRIL20 M1 PO (14:36)
[2019-11-10] MEDS ORDERED: NOVOLIN R100 UNIT/1 (14:38)
[2019-11-10] MEDS ORDERED: PAROXETINE20 MG PO (14:38)
[2019-11-10] MEDS ORDERED: PROVENTIL108 MCG/AC IN (14:40)
[2019-11-10] MEDS ORDERED: INCRUSE EL62.5 MCG/I IN (14:41)
--- NOTE | 2019-11-10 15:54 | NUR ---
PT IS SITTING CHAIR WITH NO S/S OF DISTRESS NOTED. PT DENIES PAIN. PO FLUIDS PROVIDED. PT DENIES ANY OTHER NEEDS AT THIS TIME. CALL LIGHT IN REACH.
[2019-11-10 16:10] VITALS: BP 110/49
--- NOTE | 2019-11-10 16:15 | NUR ---
PT IS SLEEPING IN BED WITH NO S/S OF DISTRESS NOTED. CALL LIGHT IN REACH.
[2019-11-10 18:31] VITALS: BP 127/71
--- NOTE | 2019-11-10 19:02 | NUR ---
REPORT FROM JACEY TODD. PT NOTED SITTING UP IN CHAIR. ALERT AND ORIENTED. NO APPARENT DISTRESS NOTED. PT DENIES ANY PAIN OR DISCOMFORT. IV SITE APPEARS HEALTHY. DISCUSSED POC. PT VERBALIZED UNDERSTANDING. CALL LIGHT WITHIN REACH. WILL CONTINUE TO MONITOR.
--- NOTE | 2019-11-10 23:57 | NUR ---
PT IN CHAIR AT BEDSIDE. DRAWING MACHINE OPERATOR NOTICED E-CIGARETTE ON TABLE, WHEN QUESTIONING PT ABOUT IT, PT DENIES USE. DISCUSSED AND EDUCATED PT ABOUT INTAKE OF NICOTENE WHILE WEARING NICOTENE PATCH. PT REFUSED TO GIVE DRAWING MACHINE OPERATOR E-CIGARETTE AND PLACED IT IN PURSE AT BEDSIDE. WILL CONTINUE TO MONITOR.
--- NOTE | 2019-11-11 03:08 | NUR ---
PT SITTING UP IN CHAIR. PT REQUESTING SNACK. CRACKERS AND SUGARFREE PUDDING PROVIDED. NO APPARENT DISTRESS NOTED. PT DENIES ANY OTHER WANTS OR NEEDS. CALL LIGHT WITHIN REACH. WILL CONTINUE TO MONITOR.
[2019-11-11 03:15] VITALS: BP 123/64
--- NOTE | 2019-11-11 08:05 | NUR ---
PT IS SITTING IN THE SIDE OF THE BED. ASSESSMENT DONE. PT IS A&O X3. PT STATED PAIN IN LEFT FOOT BUT REFUSED PAIN MEDICATION AT THIS TIME. LUNGS SOUND COARSE. O2 AT 3L VIA NC. PT DENIES NEED NEEDS AT THIS TIME. CALL LIGHT IN REACH.
[2019-11-11 08:19] VITALS: BP 126/59
[2019-11-11 09:55] VITALS: BP 126/59
--- NOTE | 2019-11-11 10:05 | NUR ---
PT IS RESTING IN BED WITH NO S/S OF DISTRESS NOTED. CHANGE DRESSING IN LEFT FOOT WOUND. PT DENIES ANY NEEDS AT THIS TIME. CALL LIGHT IN REACH.
[2019-11-11] MEDS ORDERED: SYNTHROID50 MCG PO (11:06)
[2019-11-11] MEDS ORDERED: VISTARIL25 MG PO (11:06)
[2019-11-11] MEDS ORDERED: DOXYCYCL HYC100 MG PO (11:07)
[2019-11-11] MEDS ORDERED: AMOX/K CLAV875 M1 PO (11:07)
--- NOTE | 2019-11-11 13:08 | NUR ---
Discharge instructions given. Patient verbalizes understanding of same. Discharged in stable condition via Wheelchair to Home with staff. All belongings sent with pt.
[2020-01-16] MEDS ORDERED: CELEBREX200 M1 PO ×2 (10:22→10:27)
[2020-01-16] MEDS ORDERED: LYRICA150 MG PO ×2 (10:25→10:27)
== END 2019-11-11 13:10 | disposition home or self-care (01) ==
LOC: ED 15:13 → ED-I 18:22 → ED 19:02 → ED-I 19:03 → MS2 19:16
PROVIDERS: Family Medicine; ADMIT Internal Medicine; ATTEND Internal Medicine
DX: S91.102A Unspecified open wound of left great toe without damage to nail, initial encounter (principal); L08.9 Local infection of the skin and subcutaneous tissue, unspecified; L84 Corns and callosities; J96.11 Chronic respiratory failure with hypoxia; I11.0 Hypertensive heart disease with heart failure; I50.9 Heart failure, unspecified; I25.10 Atherosclerotic heart disease of native coronary artery without angina pectoris; E11.51 Type 2 diabetes mellitus with diabetic peripheral angiopathy without gangrene; J43.9 Emphysema, unspecified; E03.9 Hypothyroidism, unspecified; D68.0 Von Willebrand disease; I45.10 Unspecified right bundle-branch block; E78.5 Hyperlipidemia, unspecified; F32.9 Major depressive disorder, single episode, unspecified; F41.9 Anxiety disorder, unspecified; I27.20 Pulmonary hypertension, unspecified; E11.65 Type 2 diabetes mellitus with hyperglycemia; D69.6 Thrombocytopenia, unspecified; R74.0 Nonspecific elevation of levels of transaminase and lactic acid dehydrogenase [LDH]; F17.200 Nicotine dependence, unspecified, uncomplicated; X58.XXXA Exposure to other specified factors, initial encounter; Z79.4 Long term (current) use of insulin; Z95.1 Presence of aortocoronary bypass graft; Z99.81 Dependence on supplemental oxygen; Z20.828 Contact with and (suspected) exposure to other viral communicable diseases
CPT/HCPCS: G0378; J0692; J3370; Q3014

== ENCOUNTER 2020-06-11 20:53 | Inpatient (IN) | payer OTHER ==
[~2020-06-11] VITALS: Ht 157.5 cm; Wt 95.0 kg
[~2020-06-11 20:53] MED LIST changes: +ALBUTEROL1.25 MG/3 IN; +AMOX/K CLAV875 M1 PO; +CYMBALTA60 MG PO; +FLONASE SE27.5 MCG/S; +INCRUSE EL62.5 MCG/I IN; +LISINOPRIL20 M1 PO; +LYRICA150 MG PO; +NOVOLIN R100 UNIT/1; +PAROXETINE20 MG PO; +PROVENTIL108 MCG/AC IN; +SYNTHROID50 MCG PO; +VISTARIL25 MG PO
--- NOTE | 2020-06-11 21:13 | NUR ---
PATIENT SITTING IN ROOM, NO DISTRESS AT THIS TIME. CALL LI IN REACH
--- NOTE | 2020-06-11 21:15 | NUR ---
PT. HAS A LARGE GROWTH TO THE OUTER ASPECT OF THE LEFT TOE, APPROX. 3 CM IN DIAM. NO DRAINAGE NOTED. PT STATES SHE HAS THIS GROWTH FOR YEARS.
--- NOTE | 2020-06-11 21:30 | NUR ---
PT. NOW C/O MIDSTERNAL CP. AWARE. PT. STATES HER CP IS A 5 ON A SCALE OF 1-10 AND IT HURTS WHEN SHE TAKES A DEEP BREATH.
[2020-06-11 22:10] LABS: HEMATOCRIT 52.3 % (37.0-47.0); HEMOGLOBIN 16.1 g/dl (12.0-16.0); IMMATURE GRANULOCYTES 0.5 % (0.0-5.0); MEAN CELL VOLUME 84.5 fL CALC (80.0-100.0); MEAN CORPUSCULAR HGB CONC 30.8 g/dL CAL (32.0-36.0); NEUT# 3.53 thou/uL (2.00-7.15); RED BLOOD COUNT 6.19 mill/uL (4.20-5.60); RED CELL DISTRI WIDTH 13.2 % (11.5-15.5)
[2020-06-11] MEDS ORDERED: LEVAQUIN750 M1 PO (22:11)
[2020-06-11] MEDS ORDERED: LASIX 20 MG TAB20 MG PO (22:12)
[2020-06-11] MEDS ORDERED: PROTONIX40 M2 PO (22:13)
[2020-06-11 22:14] LABS: URINE BILIRUBIN - DIPSTICK NEGATIVE (NEGATIVE); URINE BLOOD DIPSTICK NEGATIVE (NEGATIVE); URINE COLOR YELLOW; URINE GLUCOSE - DIPSTICK >=1000 mg/dL (NEGATIVE); URINE KETONE NEGATIVE (NEGATIVE); URINE LEUK ESTERASE NEGATIVE (NEGATIVE); URINE NITRITE - DIPSTICK NEGATIVE (Negative); URINE PROTEIN - DIPSTICK TRACE mg/dL (NEG-TRACE); URINE SPECIFIC GRAVITY 1.015; URINE UROBILINOGEN - DIPSTICK 0.2 E.U./dL (0.2)
[2020-06-11 22:30] LABS: ALBUMIN 3.7 g/dL (3.2-5.0); ALKALINE PHOSPHATASE 105 u/l (38-126); BILIRUBIN, TOTAL 0.8 mg/dL (0.0-1.4); CARBON DIOXIDE 30 mmol/l (22-30); CHLORIDE 94 mmol/l (95-108); CREATININE 0.8 mg/dL (0.5-1.0); GFR > 60 ML/MIN (>=60 (CALC)); GFR FOR AFR.AMER. > 60 ML/MIN (>=60 (CALC)); POTASSIUM 4.6 mmol/l (3.5-5.1); SGOT/AST 43 u/l (14-36); TOTAL PROTEIN 6.6 g/dL (6.3-8.2)
--- NOTE | 2020-06-11 22:30 | NUR ---
IN ROOM TO DISCUSS CLINICAL FINDINGS WITH PT. VERBALIZED UNDERSTANDING.
[2020-06-11 22:33] LABS: ANION GAP 8 (6-22 (CALC)); BUN 28 mg/dL (7-17); BUN/CREATININE RATIO 35 (12-20 (CALC)); SODIUM 127 mmol/l (137-146)
[2020-06-11 22:42] LABS: MYOGLOBIN 46 ng/mL (0 - 62)
--- NOTE | 2020-06-11 23:02 | NUR ---
BREATHING TREATMENT GIVEN.
--- NOTE | 2020-06-11 23:30 | NUR ---
PT. MADE AWARE OF ADMISSION, IV FLUIDS AND IV ABT. INFUSING WELL, NO REDNESS OR EDEMA NOTED.
--- NOTE | 2020-06-12 00:26 | NUR ---
MESFINS PACKED FOR ADMISSION TO MS FLOOR. NO C/O, PT. STATES HER CP HAS RESOLVED AT THIS TIME.
--- NOTE | 2020-06-12 00:40 | NUR ---
PT. TRANSFERED TO ROOM 278 MS FLOOR WITH BELONINGS. NO C/O.
[2020-06-12 00:45] VITALS: BP 113/60
--- NOTE | 2020-06-12 00:45 | NUR ---
PATEINT RECEIVED FROM ED AT THIS TIME ALERT AND ORIENTED X3. PATIENT ORIENTED TO ROOM AND CALL LIGHT AT THIS TIME. PATIENT ON 2 LITERS OF O2 AND HAS IV PATENT AT THIS TIME WITH NORMAL SALINE RUNNING AT 125/HR. TELE MONITOR IN PLACE AND IS SHOWING NORMAL SINUS AT 66. PATIENT DENIES SHORTNESS OF BREATH AT THIS TIME AND NO CHEST PAIN. PATIENT UPPER LUNG SOUNDS ARE CLEAR AND LOWER LUNG SOUNDS ARE DIMINISHED. PATIENT STATES SHE SMOKES 2 PACKS A DAY. PATIENT HAS DEVIN BILATERAL LEGS DUE TO PREVIOUS VASCULAR ISSUES AND DIABETESS. PATIENT HAS BILATERAL GREAT TOE CALLOUSES AND PATIENT STATED THAT THE LEFT TOE HAS BEEN RECENTLY TREATED AND IS NOT GETTING BETTER. PATIENT ADVISED AT THIS TIME TO USE HER CALL LIGHT IF SHE NEEDS TO GET UP SO SHE CAN BE ASSISTED TO BATHROOM. PATIENT STATED SHE DOES NOT WANT TO USE SCD'S AT THIS TIME. CALL LIGHT IS NEAR SIDERAILS UP X 2.
[2020-06-12 03:30] VITALS: BP 139/70
--- NOTE | 2020-06-12 03:40 | NUR ---
PATIENT IN BED AT THIS TIME WITH EYES CLOSED. RESPIRATIONS EVEN AND UNLABORED. 02 REMAINS ON AT 2 LITERS. CALL LIGHT WITHIN REACH SIDERAILS UP X2.
[2020-06-12 05:52] VITALS: BP 128/72
--- NOTE | 2020-06-12 05:54 | NUR ---
PATIENT LAYING IN BED AT THIS TIME. PATIENT DENIES ANY NEEDS CURRENTLY. PATIENT REMAINS ON 02 AND SPO2 IS 96%. SHELLACKER DONE AT THIS TIME SEE INTERVENTIONS. BILATERAL TOE'S ARE CALLOUSED AND BILATERAL LEGS ARE DEVIN WITH TRACE EDEMA AT THIS TIME. CALL LIGHT IS WITHIN REACH SIDERAILS UP X2
--- NOTE | 2020-06-12 07:09 | NUR ---
LAB CALLED WITH CRITICAL BLOOD SUGAR AT THIS TIME. BLOOD GLUCOSE IS [address] VO CALLED AND ORDERED HIGH DOSE SLIDING SCALE COVERAGE AT THIS TIME 14 UNITS GIVEN
--- NOTE | 2020-06-12 07:12 | NUR ---
PT CONSENTED TO FLU SHOT, HOWEVER THEY ALREADY RECD THIS YEARS FLU SHOT 05/20/20 PER [place] [facility]
[2020-06-12 10:46] VITALS: BP 118/63
--- NOTE | 2020-06-12 11:15 | NUR ---
PATIENT ACCU CHECK AT THIS TIME IS 448 14 UNITS OF SLIDING SCALE HUMALOG GIVEN AT THIS TIME AND PROVIDER GABRIELLE HIGHTOWER NOTIFIED OF ACCU-CHECK AND NO NEW ORDERS GIVEN.
--- NOTE | 2020-06-12 11:26 | NUR ---
PATIENT SITTING UP AT BEDSIDE AT THIS TIME. PATIENT DENEIS ANY PAIN OR NEEDS. PATIENT CALL LIGHT IS WITHIN REACH AND SIDERAILS UP X 2.
[2020-06-12 15:00] VITALS: BP 110/59
--- NOTE | 2020-06-12 15:06 | NUR ---
S: DOROTEO NICHOLS is a 54 F who presents with pneumonia. She has a history of DM, COPD/Emphysema, PAD/PVD, Von Willenbrands Disease, hypothyroidism, RBBB, CHF, depression/anxiety, glaucoma, hyperlipidemia, pulomary hypertension. All medications in patient's chart were reviewed. O: VS: BP 118/63 mmHg, P 69 bpm, RR 20 breaths per min, T 96.9 F W 95 kg, HT 62 in, Scr= 0.8 mg/dL, CrCl= 120.1 ml/min A: Blood culture is pending. Sputum culture is pending. P: Patient is on Rocephin 2g IV daily. Vancomycin ordered for pharmacy to dose. Start Vancomycin 1g IV Q8H. Vancomycin trough is drawn before the 4th dose on 06/13/20 @ 0930. Vancomycin goal trough is between 15-20 mcg/ml. Pharmacy will follow and or advise on antibiotics use as needed.
--- NOTE | 2020-06-12 15:23 | NUR ---
PT RESTING WITH EYES CLOSED; PT ORIENTED TIMES 3; HAS TROUBLE STAYING AWAKE; O2 3L VIA NC; CALL LI WITHIN REACH; WILL CONTINUE TO MONITOR.
--- NOTE | 2020-06-12 16:53 | NUR ---
PT INCONTINENT OF URINE; ASSISTED WITH SHOWER BY ESSENCE;
--- NOTE | 2020-06-12 18:15 | NUR ---
ENTERED ROOM, PT IS SITTING UP IN RECLINER WITH BST IN FRONT OF HER WITH DINNER TRAY READY TO BE TAKEN. I CLEARED TRAY FROM TABLE FOR HER. PT IV IS SOUNDING BECAUSE HER ARM IS BENT. I DISCUSSED THIS WITH PT, SHE HAD DIFFICULTY KEEPING IT STRAIGHT. I OFFERED TO ACCESS NEW SITE FOR HER AT THIS TIME, DENIED THIS STATING IT WILL HURT. I ENCOURAGED HER TO CALL IF SHE CHANGES HER MIND. SITE DOES APPEAR HEALTHY AT THIS TIME. PT ASKED FOR BANDAIDE FOR LEFT TOE SO SHE CAN PLACE HER SOCKS ON STATING HER FEET ARE COLD/PROVIDED.
[2020-06-12 19:04] VITALS: BP 111/52
--- NOTE | 2020-06-12 21:15 | NUR ---
PT C/O IVPUMP SOUNDING AND HAVING TO TRY AND KEEP HER ARM STRAIGHT. SHE ASKED IF I WOULD PLEASE PLACE NEW SITE. NEW IV SITE OBTAINED AT THIS TIME. TOLERATED WELL, PT IS SITTING IN RECLINER AND WAS FALLING ASLEEP WHILE I PLACED IV. IVF RUNNING TO NEW SITE #22 IN RFA.
[2020-06-13 00:51] VITALS: BP 107/62
--- NOTE | 2020-06-13 02:05 | NUR ---
PT SITTING IN RECLINER ASLEEP, AWOKE TO MY ENTERING THE ROOM. IV ANTIBIOTIC THERAPY ADMINISTERED AT THIS TIME. PT DENIES ANY OTHER NEEDS AND HAD RETURNED TO SLEEP PRIOR TO MY LEAVING THE ROOM.
--- NOTE | 2020-06-13 03:32 | NUR ---
PT MEDICATED ORDERS PROVIDE. NO S/O DISTRESS NOTED. PT SLEEPING UPRIGHT IN RECLINER. NO S/O DISTRESS NOTED.
[2020-06-13 04:36] VITALS: BP 112/59
--- NOTE | 2020-06-13 04:50 | NUR ---
BACK HAND REPORTED THAT PT WAS ASKING FOR COFFEE AND CRACKERS. I REMINDED HER THAT SHE WAS NPO. SHE WANTED TO KNOW WHY, I RE-EXPLAINED TO HER THAT THE DOCTOR WAS GOING TO CONSULT WITH THE SURGEON TODAY ABOUT POSSIBLE TREATING HER TOE. SHE VERBALIZED UNDERSTANDING AND STATED THAT THEY BETTER GET HERE EARLY OR SHE WAS NOT GOING TO DO ANYTHING.
[2020-06-13 06:12] LABS: HEMATOCRIT 54.2 % (37.0-47.0); HEMOGLOBIN 16.2 g/dl (12.0-16.0); MEAN CELL VOLUME 87.3 fL CALC (80.0-100.0); MEAN CORPUSCULAR HGB 26.1 pG CALC (26.0-32.0); MEAN CORPUSCULAR HGB CONC 29.9 g/dL CAL (32.0-36.0); RED BLOOD COUNT 6.21 mill/uL (4.20-5.60); RED CELL DISTRI WIDTH 13.3 % (11.5-15.5)
[2020-06-13 06:31] LABS: ANION GAP 14 (6-22 (CALC)); BUN 37 mg/dL (7-17); BUN/CREATININE RATIO 50 (12-20 (CALC)); CARBON DIOXIDE 26 mmol/l (22-30); CHLORIDE 98 mmol/l (95-108); CREATININE 0.7 mg/dL (0.5-1.0); GFR > 60 ML/MIN (>=60 (CALC)); GFR FOR AFR.AMER. > 60 ML/MIN (>=60 (CALC)); SODIUM 132 mmol/l (137-146)
[2020-06-13 06:37] LABS: POTASSIUM 5.6 mmol/l (3.5-5.1)
[2020-06-13 07:00] VITALS: BP 114/52
--- NOTE | 2020-06-13 07:00 | NUR ---
PATIENT LAYING IN BED AT THIS TIME ALERT AND ORIENTED. PATIENT DENIES ANY PAIN AND IS CURRENTLY ON O2 AT 4L. PATIENT BILATERAL TOES REMAIN UNCHANGED FROM PREVIOUS ASSESSMENT. GREAT BIG TOES BILATERALLY HAVE THICK DEVIN CALLOUS AND PATIENT IS NPO FOR POSSIBLE I&D OF LEFT GREAT TOE. PATIENT LOWER LUNG BASES REMAIN DIMINISHED AND PATIENT HAS A DRY NON PRODUCTIVE COUGH AT THIS TIME. RN SHIFT ASSESSMENT DONE SEE INTERVENTIONS. SIDERAILS ARE UP CALL LIGHT WITHIN REACH.
--- NOTE | 2020-06-13 11:05 | NUR ---
PATIENT SIGNING CONSENT FOR I&D OF LEFT GREAT TOES TO BE DONE AT BEDSIDE BY DR. VERMA TODAY. PATIENT VERBALIZES UNDERSTANDING AND AGREE TO SIGNING CONSENT AT THIS TIME.
[2020-06-13 11:09] VITALS: BP 102/60
--- NOTE | 2020-06-13 11:51 | NUR ---
PATIENT SITTING UP IN CHAIR AT THIS TIME DENIES ANY PAIN OR OTHER NEEDS CALL LIGHT IS WITHIN REACH PATIENT INSTRUCTED TO CALL FOR HELP IF SHE NEEDS ANYTHING. O2 REMAINS ON AT 4 LITERS AND PATIENT DOES EXHIBIT EXPIRATORY WHEEZING AT THIS TIME.
--- NOTE | 2020-06-13 12:01 | NUR ---
S: DOROTEO NICHOLS is a 54 F who presents with pneumonia. She has a history of DM, COPD/Emphysema, PAD/PVD, Von Willenbrands Disease, hypothyroidism, RBBB, CHF, depression/anxiety, glaucoma, hyperlipidemia, pulmonary hypertension. All medications in patient's chart were reviewed. O: Vancomycin trough 17 ug/mL on 06/13/20 @ 0930. VS: BP 102/60 mmHg, P 65 bpm, RR 18 breaths per min, T 97.1 F W 95 kg, HT 62 in, Scr= 0.7 mg/dL, CrCl= 98.8 ml/min A: Blood culture is pending. Sputum culture is pending. P: Patient is on Rocephin 2 g IV daily. Vancomycin ordered for pharmacy to dose. Continue Vancomycin 1 g IV Q8H. Vancomycin trough is drawn before the 4th dose on 06/14/20 @ 0930. Vancomycin goal trough is between 15-20 mcg/ml. Pharmacy will follow and or advise on antibiotics use as needed.
--- NOTE | 2020-06-13 12:40 | NUR ---
DR. VERMA IS AT BEDSIDE AT THIS TIME PREFORMING AN I&D ON LEFT GREAT TOE. PATIENT TOLERATED PROCEEDURE WITHOUT DIFFICULTY AT THIS ITME. PATIENT FOOT WAS DRESSED WITH DRIED 4X4'S AND COBAND AND ORDERS GIVEN TO CHANGE DAILY AT THIS TIME. SIDERAILS ARE UP X 2 CALL LIGHT IS WITHIN REACH.
[2020-06-13 15:40] VITALS: BP 111/64
--- NOTE | 2020-06-13 15:46 | NUR ---
PATIENT RESTING IN BED AT THIS TIME DENIES ANY PAIN AND DRESSING TO LEFT GREAT TOE DRY AND INTACT. GREAT LEFT TOE IS WARM AND PATIENT CAN MOVE TOE WITHOUT DIFFICULTY. SIDERAILS UP CALL LIGHT WITHINE REACH.
--- NOTE | 2020-06-13 17:00 | NUR ---
LAB CALLED WITH CRITICAL BLOOD GLUCOSE OF 484. PER PROVIDER GABRIELLE LIZARRAGAPN COVER WITH 14 UNITS OF HUMALOG.
--- NOTE | 2020-06-13 17:00 | NUR ---
PATIENT ACCU-CHECH READING CRITICALLY HIGH ON MACHINE. PROVIDER GABRIELLE GONCALVES APRN MADE AWARE AND STAT GLUCOSE ORDERED AT THIS TIME. PER PROVIDER GABRIELLE GONCALVES ARPN ORDERS GIVE TO GIVE HELD DOSE OF LEVIMER 40MG FROM THIS MORNING AND TO DO SLIDING SCALE COVERAGE WHEN LAB GLUCOSE RETURNS WITH VALUE.
--- NOTE | 2020-06-13 19:00 | NUR ---
CHANGE OF SHIFT REPORT RECEIVED FROM PEYTON CLARKE. ASSUMED CARE OF PATIENT.
[2020-06-13 19:15] VITALS: BP 128/58
--- NOTE | 2020-06-13 21:20 | NUR ---
ARY ANTHONY NOTIFIED OF CRITICALLY HIGH BLOOD GLUCOSE RESULT OF 561. INSTRUCTED TO GIVEN TO TREAT WITH S/S.
--- NOTE | 2020-06-14 | NUR ---
PT SITTING UP IN BED SIDE RECLINER WATCH TV, NO CONCERN EXPRESSED AT THIS TIME. WILL CONTINUE TO MONITOR.
[2020-06-14 00:20] VITALS: BP 115/78
[2020-06-14 03:50] VITALS: BP 114/55
--- NOTE | 2020-06-14 04:00 | NUR ---
PT LAYINGIN BED, SLEEPING. NO S/SX OF DISTRESS OR DISCOMFORT NOTED AT THIS TIME. WILL CONTINUE TO MONITOR.
[2020-06-14 07:52] VITALS: BP 118/64
--- NOTE | 2020-06-14 09:00 | NUR ---
PT IS ALERT, ORIENTED X 3. SHE IS SEEN SITTING IN RECLINER AT BEDSIDE. LUNGS CLEAR, 4 LPM NC LIKE AT HOME. NO DISTRESS, NO COMPLAINTS OF CHEST PAIN OR SHORTNESS OF BREATH.
[2020-06-14 09:31] VITALS: BP 118/64
[2020-06-14] MEDS ORDERED: LEVEMIR100 UNIT/M SC (09:43)
[2020-06-14] MEDS ORDERED: NOVOLOG100 UNIT/M SC (09:43)
[2020-06-14] MEDS ORDERED: DOXYCYCL HYC100 MG PO (09:45)
[2020-06-14] MEDS ORDERED: PREDNISONE10 MG PO (09:45)
[2020-06-14 09:47] LABS: HEMATOCRIT 52.6 % (37.0-47.0); HEMOGLOBIN 15.6 g/dl (12.0-16.0); IMMATURE GRANULOCYTES 0.4 % (0.0-5.0); MEAN CELL VOLUME 87.5 fL CALC (80.0-100.0); MEAN CORPUSCULAR HGB CONC 29.7 g/dL CAL (32.0-36.0); NEUT# 6.44 thou/uL (2.00-7.15); RED BLOOD COUNT 6.01 mill/uL (4.20-5.60); RED CELL DISTRI WIDTH 13.3 % (11.5-15.5)
[2020-06-14 10:25] LABS: ALBUMIN 3.8 g/dL (3.2-5.0); ALKALINE PHOSPHATASE 111 u/l (38-126); BILIRUBIN, TOTAL 0.6 mg/dL (0.0-1.4); BUN 37 mg/dL (7-17); BUN/CREATININE RATIO 60 (12-20 (CALC)); CARBON DIOXIDE 22 mmol/l (22-30); CHLORIDE 98 mmol/l (95-108); CREATININE 0.6 mg/dL (0.5-1.0); GFR > 60 ML/MIN (>=60 (CALC)); GFR FOR AFR.AMER. > 60 ML/MIN (>=60 (CALC)); SGOT/AST 46 u/l (14-36); SODIUM 129 mmol/l (137-146); TOTAL PROTEIN 6.5 g/dL (6.3-8.2)
[2020-06-14 10:33] LABS: ANION GAP 15 (6-22 (CALC)); POTASSIUM 5.5 mmol/l (3.5-5.1)
--- NOTE | 2020-06-14 11:15 | NUR ---
DR VERMA IN TO SEE PT. DRESSING TO LEFT GREAT TOE CHANGED, TOLERATED WELL. PT HAS THEN BEEN DISCHARGED TO HOME. PT VERBALIZES UNDERSTANDING OF DC INSTRUCTIONS, TAKEN BY WHEELCHAIR TO VEHICLE. PT LEAVES [facility] IN STABLE CONDITION.
== END 2020-06-14 11:10 | disposition home or self-care (01) | DRG 190 ==
LOC: ED 20:53 → ED-I 22:39 → ED 23:05 → MS2 23:06
PROVIDERS: Emergency Medicine; Nurse Practitioner; ADMIT Internal Medicine; ATTEND Internal Medicine
PROC: 0HBNXZZ Excision of Left Foot Skin, External Approach (ICD-10-PCS; principal; 2020-06-13)
DX: J43.9 Emphysema, unspecified (principal); J18.9 Pneumonia, unspecified organism; J96.22 Acute and chronic respiratory failure with hypercapnia; J96.21 Acute and chronic respiratory failure with hypoxia; D68.0 Von Willebrand disease; E11.628 Type 2 diabetes mellitus with other skin complications; L84 Corns and callosities; L03.032 Cellulitis of left toe; E11.621 Type 2 diabetes mellitus with foot ulcer; L97.529 Non-pressure chronic ulcer of other part of left foot with unspecified severity; E11.42 Type 2 diabetes mellitus with diabetic polyneuropathy; E11.51 Type 2 diabetes mellitus with diabetic peripheral angiopathy without gangrene; E11.65 Type 2 diabetes mellitus with hyperglycemia; I11.0 Hypertensive heart disease with heart failure; I50.9 Heart failure, unspecified; I25.10 Atherosclerotic heart disease of native coronary artery without angina pectoris; I27.20 Pulmonary hypertension, unspecified; E03.9 Hypothyroidism, unspecified; E78.5 Hyperlipidemia, unspecified; H40.9 Unspecified glaucoma; F41.9 Anxiety disorder, unspecified; F32.9 Major depressive disorder, single episode, unspecified; F17.210 Nicotine dependence, cigarettes, uncomplicated; Z99.81 Dependence on supplemental oxygen; Z79.4 Long term (current) use of insulin; Z95.1 Presence of aortocoronary bypass graft; Z20.822 Contact with and (suspected) exposure to COVID-19

== ENCOUNTER 2020-07-08 13:47 | Inpatient (IN) | payer OTHER ==
[~2020-07-08] VITALS: Ht 157.5 cm; Wt 101.0 kg
[~2020-07-08 13:47] MED LIST changes: +LASIX 20 MG TAB20 MG PO; +LEVAQUIN750 M1 PO; +LEVEMIR100 UNIT/M SC; +NOVOLOG100 UNIT/M SC
--- NOTE | 2020-07-08 14:00 | NUR ---
PT TO ROOM # 6 VIA W/C FOR BEDSIDE TRIAGE
[2020-07-08 15:01] LABS: ALBUMIN 3.7 g/dL (3.2-5.0); ALKALINE PHOSPHATASE 82 u/l (38-126); CHLORIDE 90 mmol/l (95-108); CREATININE 0.7 mg/dL (0.5-1.0); GFR > 60 ML/MIN (>=60 (CALC)); GFR FOR AFR.AMER. > 60 ML/MIN (>=60 (CALC)); POTASSIUM 4.4 mmol/l (3.5-5.1); SGOT/AST 32 u/l (14-36); SODIUM 132 mmol/l (137-146); TOTAL PROTEIN 6.5 g/dL (6.3-8.2)
--- NOTE | 2020-07-08 15:02 | NUR ---
PATIENT STATES UNDERSTANDING OF CURRENT PPOC
[2020-07-08 15:06] LABS: ANION GAP 11 (6-22 (CALC)); BILIRUBIN, TOTAL 1.2 mg/dL (0.0-1.4); BUN 13 mg/dL (7-17); BUN/CREATININE RATIO 19 (12-20 (CALC)); CARBON DIOXIDE 35 mmol/l (22-30)
[2020-07-08 15:14] LABS: HEMATOCRIT 51.5 % (37.0-47.0); HEMOGLOBIN 15.3 g/dl (12.0-16.0); IMMATURE GRANULOCYTES 0.4 % (0.0-5.0); MEAN CORPUSCULAR HGB 24.3 pG CALC (26.0-32.0); MEAN CORPUSCULAR HGB CONC 29.7 g/dL CAL (32.0-36.0); NEUT# 3.15 thou/uL (2.00-7.15); RED BLOOD COUNT 6.3 mill/uL (4.20-5.60); RED CELL DISTRI WIDTH 15.4 % (11.5-15.5)
[2020-07-08 15:28] LABS: MEAN CELL VOLUME 81.7 fL CALC (80.0-100.0)
--- NOTE | 2020-07-08 15:40 | NUR ---
PATIENT OFFERED SOMETHING TO DRINK PER REQUEST, DAUGHT STILL BEDSIDE
--- NOTE | 2020-07-08 16:29 | NUR ---
PATIENT ASSISTED TO BSC
--- NOTE | 2020-07-08 17:24 | NUR ---
CONTACTED ER SPOKE WITH RADHA, ASKED FOR MED REC TO BE COMPLETED BEFORE PHARMACY VERIFIES NEW ORDERS.
--- NOTE | 2020-07-08 18:19 | NUR ---
REPORT GIVEN TO FLOOR NURSE
[2020-07-08 18:25] VITALS: BP 117/60
--- NOTE | 2020-07-08 18:48 | NUR ---
PT ARRIVED TO THE FLOOR FROM THE ER IN A WHEEL CHAIR. AXOX3, O2 3L NC.NO RESP DISTRESS NOTED, GOWN PLACED ON THE PATIENT. NOTED BI LAT LOWER EXT RED IN COLOR AND SHINEY IN PLACES. 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 INTO BED WITH ASST. ORIENTED TO THE CALL SYSTEM, THE BED , THE LIGHTS. AND THE TELEPHONE. REPOSITIOEND FOR COMFORT, SIDE RAILS UP CALL LIGHT IN REACH BED LOCKED IN LOW POSITION, ALL SAFTY MEASURES IN PLACE. EDUCATED THE PATIENT CHANGE OF SHIFT AND NIGHT NURSE WILL BE IN TO SEE HER. WILL CONTINUE TO MONIOTR THE PATIENT.
--- NOTE | 2020-07-08 20:13 | NUR ---
ADMIT COMPLETED WITH PT AT BEDSIDE. BREATHING SLIGHTLY LABORED, ACCESORY MUSCLES BEING USED. PT REPORTS NO SOB, REPORTS SHE IS ALWAYS WHEEZING D/T COPD. PT JUST HAD A BEATHING TREATMENT BY RT. O2 SATURATION IS 96% ON 4L OF O2 VIA NC. PT NOTED TO BE SLIGHTLY LETHARGIC, REPORTS SHE IS TIRED FROM ALL OF THE ACTIVITY TODAY. REDNESS NOTED TO BLLE, RLE WITH WHITE BLISTERS JUST ABOVE ANKLE. WEEPING NOTED FROM RLE. IV TO RAC, FLUSHED EASILY. ALL SAFETY PRECAUTIONS IN PLACE. WILL CONTINUE TO MONITOR.
[2020-07-09 04:00] VITALS: BP 104/57
[2020-07-09 06:15] LABS: HEMATOCRIT 50.6 % (37.0-47.0); HEMOGLOBIN 14.6 g/dl (12.0-16.0); MEAN CORPUSCULAR HGB 23.9 pG CALC (26.0-32.0); MEAN CORPUSCULAR HGB CONC 28.9 g/dL CAL (32.0-36.0); RED BLOOD COUNT 6.1 mill/uL (4.20-5.60); RED CELL DISTRI WIDTH 15.4 % (11.5-15.5)
[2020-07-09 06:37] LABS: ANION GAP 11 (6-22 (CALC)); BUN 15 mg/dL (7-17); BUN/CREATININE RATIO 18 (12-20 (CALC)); CALCULATED LDLCHOLESTEROL 40 mg/dL (62-129 (CALC)); CARBON DIOXIDE 35 mmol/l (22-30); CHLORIDE 93 mmol/l (95-108); CREATININE 0.8 mg/dL (0.5-1.0); GFR > 60 ML/MIN (>=60 (CALC)); GFR FOR AFR.AMER. > 60 ML/MIN (>=60 (CALC)); HDL CHOLESTEROL 27 mg/dL (>=40); MAGNESIUM 1.5 mg/dL (1.6-2.3); POTASSIUM 3.9 mmol/l (3.5-5.1); SODIUM 135 mmol/l (137-146); TOTAL TRIGLYCERIDES 90 mg/dl (30-149); VLDL CHOLESTROL 18 mg/dl (2-49 (CALC))
[2020-07-09 06:58] LABS: CHOLESTEROL HDL RATIO 3.1 (<4.4 (CALC)); TOTAL CHOLESTEROL 85 mg/dl (0-199)
--- NOTE | 2020-07-09 07:38 | NUR ---
PT RESTED WELL THROUGHOUT THE NIGHT. NO COMPLAINTS VOICED. PAIN CONTROLLED AT THIS TIME. NO S/S OF DISTRESS. BREATHING HAS EVENED OUT, BREATHING IS NOW EVEN AND UNLABORED. NO COMPLAINTS VOICED. IV SITE TO RAC SPPEARED TO BE LEAKING AND WAS DIFFICULT TO FLUSH. NEW SITE STARTED A PRECAUTIONARY MEASURE IN TH EVENT THAT THE SITE TO RAC BECOMES UNUSABLE, #22 LEFT WRIST. PT TOLERATED WELL. WILL CONTINUE TO MONITOR.
--- NOTE | 2020-07-09 07:57 | NUR ---
PT note Patient is screened for rehab intervention and no needs are identified at this time
[2020-07-09 08:00] VITALS: BP 126/68
--- NOTE | 2020-07-09 08:30 | NUR ---
PT RESTING IN THE BED. NOTED AUDABLE WHEEZING, O2 INPLACE. PT DENIES PAIN AT THIS TIME. IS ABLE TO EAT HER AM MEAL WITH OUT SOB. REPOSITIONED FOR COMFORT, SIDE RAILS UP CALL LIGHT IN REACH, BED LOCKED IN LOW POSITION, WILL CONTIUE TO MONITOR THE PATIENT.
--- NOTE | 2020-07-09 12:42 | NUR ---
PT GIVEN HOPITAL PHONE TO CALL HOME. RESTING COMFORTABLE IN THE BED NO DISTRESS NOTED AT THIS TIME.
--- NOTE | 2020-07-09 13:00 | NUR ---
OUT OF THE BED TO THE BEDSIDE CHAIR, O2 IN PLACE. IV ABT IN PROGRESS. CALL LIGHT IN REACH. NO RESP DISTRESS NOTED AT THIS TIME.
--- NOTE | 2020-07-09 14:28 | NUR ---
S: DOROTEO NICHOLS is a 54 F who presents with cellulitis. She has a history of hypertension, +TOB, COPD, CHF IDDM, ALYSON, CAD, PVD pulmonary, HTN peripheral, neuropathy, depression, anxiety, willington disease, kidney failure, obesity-class 1. All medications in patient's chart were reviewed. O: VS: BP 126/68 mmHg, P 65 beats per minute, RR 20 breathes per minute, T 97.9 F W 101 kg, HT 62, Scr= 0.8 mg/dL, CrCl= 89.5 ml/min A: Preliminary blood cultures show no growth in 4 vials over 24 hours. P: Patient is on Vancomycin 1 g IV Q8H. Vancomycin ordered for pharmacy to dose. continue Vancomycin 1 g IV Q8H. Vancomycin trough is drawn before the 4th dose on 07/10/20 @1330. Trough level on 07/09/20 was 13 mcg/mL. Vancomycin goal trough is between 10-15 mcg/ml. Pharmacy will follow and/or advise on antibiotics use as needed.
--- NOTE | 2020-07-09 16:42 | NUR ---
PT RESTING COMFORTABLE IN THE BEDSIDE CHAIR. EDUCATED ON ALL AXT. NO DISTRESS NOTED AT THIS TIME.
--- NOTE | 2020-07-09 18:28 | NUR ---
PT STATES SHE IS FEELING "A LITTLE BETTER" SHE REQUEST TO BE ABLE TO GO DOWN TO THE LOBBY TO GET A COKE FROM THE MACHINE. EDUCATED ON COVID RESTRICTIONS, AND NEW REGULATION ABOUT LEAVING THE FLOOR.
[2020-07-09 19:38] VITALS: BP 114/60
--- NOTE | 2020-07-09 23:03 | NUR ---
PT RESTING QUIETLY WITH EYES CLOSED. NO COMPLAINTS VOICED AT THIS TIME. PT REPORTS SLIGHT PAIN, TREATED WITH TYLENOL.BREATHING EVEN AND UNLABORED AT THIS TIME. WHEEZING NOTED THROUGHOUT. O2 @ 4L CONTINUES. BS 142, NO COVERAGE INDIDCATED. PT REPORTS SOME ANXIETY, GIVEN VISTARIL ORDERED. WILL MONITOR.
[2020-07-10] VITALS (9 sets, daily range): BP systolic 101–134; BP diastolic 46–63
--- NOTE | 2020-07-10 01:50 | NUR ---
PT RESTING WELL TONIGHT WITH EYES CLOSED. PT COMPLAINED OF DRY THROUGHT AND DRY NOSTRILS. PT IS ON 02 @ 4L WITH NO HUMIDITY. THIS NURSE REACHED OUT TO RT AND REQUESTED HUMIDITY. RT CAME UP AND HOOKED UP HUMIDITY. PT REPORTS DECREASED DRY THROAT AT THIS TIME. PT DOING WELL AT THIS TIME. NO S/S OF DISTRESS. WILL MONITOR.
--- NOTE | 2020-07-10 04:42 | NUR ---
PT RESTING QUIETLY IN BED. BREATHING IS LABORED AT TIMES, CATTERED WHEEZING THROUGHOUT. 4L O2 VIA 2L HUMIDIFIED. INFECTIOUS DISEASE REFERRAL IN CHART, PENDING INFECTIOUS DISEASE FOR CONSULT. NO COMPLAINTS VOICED AT THIS TIME. DENIES PAIN. VISTARIL GIVEN LAST NIGHT BEFORE BED TO MANAGE ANXIETY. PT TOLERATED WELL. SAFETY PRECAUTIONS IN PLACE. WILL MONITOR.
[2020-07-10 06:02] LABS: HEMATOCRIT 57.4 % (37.0-47.0); HEMOGLOBIN 16.3 g/dl (12.0-16.0); IMMATURE GRANULOCYTES 0.4 % (0.0-5.0); MEAN CELL VOLUME 84.8 fL CALC (80.0-100.0); MEAN CORPUSCULAR HGB 24.1 pG CALC (26.0-32.0); MEAN CORPUSCULAR HGB CONC 28.4 g/dL CAL (32.0-36.0); NEUT# 5.43 thou/uL (2.00-7.15); RED BLOOD COUNT 6.77 mill/uL (4.20-5.60); RED CELL DISTRI WIDTH 16.8 % (11.5-15.5)
[2020-07-10 06:42] LABS: ALBUMIN 3.8 g/dL (3.2-5.0); ALKALINE PHOSPHATASE 109 u/l (38-126); ANION GAP 14 (6-22 (CALC)); BILIRUBIN, TOTAL 1.1 mg/dL (0.0-1.4); BUN 21 mg/dL (7-17); BUN/CREATININE RATIO 25 (12-20 (CALC)); CARBON DIOXIDE 32 mmol/l (22-30); CHLORIDE 96 mmol/l (95-108); CREATININE 0.8 mg/dL (0.5-1.0); GFR > 60 ML/MIN (>=60 (CALC)); GFR FOR AFR.AMER. > 60 ML/MIN (>=60 (CALC)); POTASSIUM 4.5 mmol/l (3.5-5.1); SGOT/AST 38 u/l (14-36); SODIUM 138 mmol/l (137-146); TOTAL PROTEIN 6.6 g/dL (6.3-8.2)
--- NOTE | 2020-07-10 07:29 | NUR ---
PT PLACED ON BIPAP PER DR. VO.
--- NOTE | 2020-07-10 07:51 | NUR ---
PT REPORT RECEIVED FROM MED SURG AT BEDSIDE TRANSFER. RESP TECH HERE TO PLACE PT ON BIPAP. SATS ON TRANSFER WITH 4 LITRES OXYGEN WAS 81 %, SATS UP TO 94% ON BIPAP. PT SLEEPING AT THIS TIME./ PT IS ON O2 AT 4 LITRE AT HOME. MELVIN CELLULITIS TO LEGS, PT HAD SMALL SCRAPE THAT WAS BLEEDING DURING TRANSFER, CLEANED AND DRESSING WITH SHOSHANA FOR BLEEDING CONTROL. VITAL SIGNS NORMAL AT THIS TIME. CALL LIGHT WITHIN REACH, ADVISED PT OF REASON FOR TRANSFER AND PT STATES UNDERSTANDING. MED SURG NURSE STATES THAT O2 HAD DROPPED INTO LOW 80'S IN MIDDLE OF NIGHT AND ABG REQUESTED,
--- NOTE | 2020-07-10 07:57 | NUR ---
FIO2 INCREASED TO 50% DUE TO 89% SATURATION.
--- NOTE | 2020-07-10 09:41 | NUR ---
DUE TO ACCUCHECK OF 93, HELD THE LEVIMIER, AND BLOOD PRESSURE WAS 99/52 AND 110/51, SO HELD BLOOD PRESSURE MEDS UNTIL THEY BLOOD PRESSURE STABILIZES.
--- NOTE | 2020-07-10 11:45 | NUR ---
blood sugar dropped to 45, doctor notified, infused d10/250ml bag wide open, will start on fluids when finished.
--- NOTE | 2020-07-10 12:16 | NUR ---
accucheck 156, pt alert/oriented x3.
--- NOTE | 2020-07-10 12:51 | NUR ---
PT RESTING QUIETLY ON BED, BIPAP REMAINS ON, PT ALERT/ORIENTED X3.
--- NOTE | 2020-07-10 14:25 | NUR ---
PTS CALLED TO WONDER WHY SHE WAS PLACED IN ICU, WHEN I TRIED TO EXPLAIN THAT HER SATS HAD DROPPED IN MIDDLE OF NIGHT HE STATES THEY NEVER GET HIGHER THAN 90, THAT IS HER USUAL
--- NOTE | 2020-07-10 16:06 | NUR ---
DR. ORANTES DID VIDEO CONSULT WITH PT.
--- NOTE | 2020-07-10 16:13 | NUR ---
PT PULLED OFF BIPAP, STATES I WANT NASAL CANNULA, AND I WANT TO EAT. SPOKE TO HER ABOUT THE NEED FOR THE BIPAP, SHE STATES I WANT TO TRY THE NASAL CANNULA. RESP CALLED AND PLACED PT ON HIGH FLOW N/C. WILL MONITER AND SEE WHERE PT SATS STAND. PT STATES I DONT KNOW WHY YOU ARE SO WORRIED, I AM NEVER OVER 90 ON MY OXYGEN AT HOME ANYWAY.
--- NOTE | 2020-07-10 16:15 | NUR ---
REAL STANDBY. PT ON 8L [facility].
--- NOTE | 2020-07-10 17:12 | NUR ---
PT UP TO BSC WITH 2ND LARGE BOWEL MOVEMENT. PTS SATS REMAIN AT 90% ON HIGH FLOW 10 LITRES N/C. DENIES SOB. STATES DOES NOT WANT BACK ON BIPAP.
--- NOTE | 2020-07-10 19:20 | NUR ---
PATIENT SITTING UP IN RECLINER WITH LEGS ELEVATED. ALERT AND ORIENTED X3. RESP NON-LABORED AT REST, VIEYRA. BREATH SOUNDS TIGHT, WHEEZES HEARD THROUGHOUT LUNG IGLESIAS. MOIST NON-PRODUCTIVE COUGH NOTED. BLE PITTING EDEMA AND ERYTHEMA NOTED. OPEN AREA TO RIGHT MARTINEZ. FAINTLY PALPABLE PEDAL PULSES. SALINE LOCK INTACT IN LW. IV IN RAC WITH D5NS INFUSING AT 40 ML/HR. BOTH IV SITES BENIGN. BULLDOZER MECHANIC SHOWS SR. DIACUSSED PLAN OF CARE. DENIES NEEDS AT THIS TIME.
--- NOTE | 2020-07-10 21:00 | NUR ---
HS ACCU CHECK 247, COVERED PER SLIDING SCALE PROTOCOL AND SCHEDULED DOSE OF LEVEMIR INSULIN GIVEN BY CATIE/RN. PATIENT PROVIDED WITH HS SNACK.
--- NOTE | 2020-07-10 22:00 | NUR ---
PATIENT RESTING IN BED AT THIS TIME. CALL LIGHT IN REACH. VSS. SR ON MONITOR.
[2020-07-11] VITALS (13 sets, daily range): BP systolic 107–132; BP diastolic 49–66
--- NOTE | 2020-07-11 00:01 | NUR ---
RESTING WITH EYES CLSOED. RESP NON-LABORED AT REST. REMAINS ON 02 12 L HFNC. VSS.
--- NOTE | 2020-07-11 02:00 | NUR ---
NO CHANGES TO REPORT. VSS. CONTINUES ON O2 AT 12 L HFNC.
--- NOTE | 2020-07-11 04:00 | NUR ---
REMAINS ON O2 12 L HFNC. O2 SAT 89-92% RESP NON-LABORED AT REST. VSS. SR ON MONITOR.
--- NOTE | 2020-07-11 05:45 | NUR ---
PATIENT AWAKE, STTTING AT SIDE OF BED. PATIENT STATES "I AM READY TO GET UP IN THE CHAIR AND CLEANED UP. ASSISTED PATIENT UP TO RECLINER. ASSIST BATH. LINENES CHANGED.
[2020-07-11 05:58] LABS: MEAN CELL VOLUME 83.5 fL CALC (80.0-100.0); MEAN CORPUSCULAR HGB 23.9 pG CALC (26.0-32.0); MEAN CORPUSCULAR HGB CONC 28.6 g/dL CAL (32.0-36.0); RED BLOOD COUNT 5.95 mill/uL (4.20-5.60); RED CELL DISTRI WIDTH 15.5 % (11.5-15.5)
--- NOTE | 2020-07-11 06:00 | NUR ---
PATIENT UP TO BS. DESAT TO MID 80'S WITH ACTIVITY.
[2020-07-11 06:14] LABS: ALBUMIN 3.3 g/dL (3.2-5.0); ALKALINE PHOSPHATASE 84 u/l (38-126); ANION GAP 13 (6-22 (CALC)); BILIRUBIN, TOTAL 1.1 mg/dL (0.0-1.4); BUN 35 mg/dL (7-17); BUN/CREATININE RATIO 38 (12-20 (CALC)); CARBON DIOXIDE 34 mmol/l (22-30); CHLORIDE 94 mmol/l (95-108); CREATININE 0.9 mg/dL (0.5-1.0); GFR > 60 ML/MIN (>=60 (CALC)); GFR FOR AFR.AMER. > 60 ML/MIN (>=60 (CALC)); POTASSIUM 4.8 mmol/l (3.5-5.1); SGOT/AST 23 u/l (14-36); SODIUM 136 mmol/l (137-146); TOTAL PROTEIN 5.8 g/dL (6.3-8.2)
--- NOTE | 2020-07-11 06:15 | NUR ---
O2 SAT STILL 83-83% O2 INCREASED TO 15 L HFNC.
[2020-07-11 06:20] LABS: HEMATOCRIT 49.7 % (37.0-47.0); HEMOGLOBIN 14.2 g/dl (12.0-16.0)
--- NOTE | 2020-07-11 06:51 | NUR ---
PT WEANED FROM 15LPM HFNC TO 10 LPM HFNC PE PT SPO2. PT IN CHAIR BY BED, RESTING COMFORTABLY. NO ACUTE DISTRESS NOTED. VSS. RENDERING EQUIPMENT TENDER TO MONITOR.
--- NOTE | 2020-07-11 06:56 | NUR ---
PT REPORT RECEIVED FROM EARTH BORING MACHINE OPERATOR. PT REMAINS ALERT/ORIENTED X3, HIGH FLOW 12 SATS IN THE HIGH 80'S
--- NOTE | 2020-07-11 07:20 | NUR ---
VANCOMYACIN STOPPED DUE TO TROUGH, WILL WAIT FOR PHARMACY TO RECOMMEND DOSE
--- NOTE | 2020-07-11 09:27 | NUR ---
PT BACK IN BED, WATCHING TV, DENIES ANY COMPLAINTS
--- NOTE | 2020-07-11 10:26 | NUR ---
S: DOROTEO NICHOLS is a 54 F who presents with cellulitis. She has a history of DM, COPD, PAD/PVD, [place], Hypothyroidism, RBBB, CHF, Depression, Anxiety, Glaucoma, Hyperlipidemia, and Pulmonary hypertension. All medications in patient's chart were reviewed. O: Trough 07/11 @ 0530: 21 ug/ml VS: BP 110/51 mmHg, P 79 bpm, RR 21 breaths per minute,T 97.2 F W 101 kg, 62 in, Scr=0.9 mg/dl, CrCl= 113.9 ml/min A: Blood culture is pending. P: Patient is on Rocpehin 2g IV daily. Vancomycin ordered for pharmacy to dose. Pt had vancomycin trough ordered for 07/10 @ 1330. However, nurse hung the med before drawing trough, so trough was re-timed for 0600 on 07/11. Change Vancomycin to 1 g IV Q12H. Vancomycin trough is drawn before the 4th dose on 07/12/20 @ 18:00. Vancomycin goal trough is between 10-15 mcg/ml. Pharmacy will follow and or advise on antibiotics use as needed.
--- NOTE | 2020-07-11 10:37 | NUR ---
PT PLT COUNT DOWN TO 94 TODAY, WAS 126 AT ADMISSION. REPORTED TO DR VO. PT HAD BEEN RECEIVING ZOSYN WELL, WAS DC'D TODAY. PER DR VO, CONTINUE LOVENOX. CHECK ON PLT LEVEL TOMORROW
--- NOTE | 2020-07-11 11:25 | NUR ---
PT SLEEPING AT THIS TIME, NO COMPLAINTS AT THIS TIME, VITAL SIGNS STABLE.
--- NOTE | 2020-07-11 12:09 | NUR ---
PT REMAINS ALERT/ORIENTED X3, VITAL SIGNS STABLE. PT DENIES ANY COMPLAINTS AT THIS TIME. CALL LIGHT WITHIN REACH.
--- NOTE | 2020-07-11 12:30 | NUR ---
PT LEXUS AEROSOLIZED BRONCHODILATOR THERAPY WELL. NO ADVERSE RXN. NO ACUTE DISTRESS NOTED. PT SITTING UP ON SIDE OF BED WATCHING TELEVISION. VSS. DIRECT SALES PROFESSIONAL TO MONITOR.
--- NOTE | 2020-07-11 15:58 | NUR ---
pt resting in chair at bedside comfortably. no acute distress noted. vital signs stable. wildlife ecology professor to monitor.
--- NOTE | 2020-07-11 17:59 | NUR ---
PT REMAINS UP IN CHAIR, NO COMPLAINTS AT THIS TIME. TALKING ON PHONE, LAUGHING AND SMILING WITH FAMILY ON PHONE. PT REMAINS ON HIGH FLOW 10 LITRE. SAT AT 88-90%.
--- NOTE | 2020-07-11 19:45 | NUR ---
RESTING UP CHAIR. USING O2 PER HFNC AT 12 L. BREATH SOUNDS DIMINISHED WITH FAINT WHEEZE IN LEFT UPPER LOBE. OCC DRY COUGH. CONTINUES TO HAVE ERYTHEMA AND EDEMA TO BLE. DSG INTACT TO RLE. FAINTLY PALPABLE PEDAL PULSES. SALINE LOCK IN RAC AND LW BOTH SITES BENIGN. LARRIMAN HELPER SHOWS SR. DISCUSSED PLAN OF CARE. DENIES NEEDS AT THIS TIME. CALL LI IN REACH.
--- NOTE | 2020-07-11 20:30 | NUR ---
SALINE LOCK IN RAC DC'D WITH CATHETER INTACT. LW SALINE LOCK FLUSHES SLUGGISHLY.
--- NOTE | 2020-07-11 21:00 | NUR ---
ATTEMPTED IV RESTART X2 UNSUCCESSFUL.
--- NOTE | 2020-07-11 23:00 | NUR ---
ASSISTED BACK TO BED. RW SALINE LOCK OCCLUDED, DC'D WITH CATHETER INATCT.
[2020-07-12] VITALS (12 sets, daily range): BP systolic 121–150; BP diastolic 50–65
--- NOTE | 2020-07-12 | NUR ---
#22 SALINE LOCK STARTED IN BY Kaylan ARNOLD/PEYTON. PATIENT RESTING WITHOUT COMPLAINTS.
--- NOTE | 2020-07-12 02:00 | NUR ---
RESTING WITH EYES CLOSED. RESP NON-LABORED AT REST. VSS.
--- NOTE | 2020-07-12 04:00 | NUR ---
AWAKE ON ROUNDS, RESTING IN BED WATCHING TELEVISION. NO COMPLAINTS VOICED. VSS. SR ON MONITOR.
--- NOTE | 2020-07-12 04:45 | NUR ---
ASSISTED UP TO BEDSIDE CHAIR.
[2020-07-12 05:43] LABS: HEMATOCRIT 52.6 % (37.0-47.0); HEMOGLOBIN 14.9 g/dl (12.0-16.0); MEAN CELL VOLUME 82.8 fL CALC (80.0-100.0); MEAN CORPUSCULAR HGB 23.5 pG CALC (26.0-32.0); MEAN CORPUSCULAR HGB CONC 28.3 g/dL CAL (32.0-36.0); RED BLOOD COUNT 6.35 mill/uL (4.20-5.60); RED CELL DISTRI WIDTH 15.9 % (11.5-15.5)
--- NOTE | 2020-07-12 05:56 | NUR ---
SITTING UP IN CHAIR. VSS. RESP NON-LABORED. SR ON MONITOR. O2 REMAINS IN USE PER HFNC AT 10 L. O2 SAT 92%
[2020-07-12 06:14] LABS: ALBUMIN 3.7 g/dL (3.2-5.0); ALKALINE PHOSPHATASE 86 u/l (38-126); ANION GAP 13 (6-22 (CALC)); BILIRUBIN, TOTAL 0.7 mg/dL (0.0-1.4); BUN 48 mg/dL (7-17); BUN/CREATININE RATIO 47 (12-20 (CALC)); CARBON DIOXIDE 32 mmol/l (22-30); CHLORIDE 95 mmol/l (95-108); GFR 58 ML/MIN (>=60 (CALC)); GFR FOR AFR.AMER. > 60 ML/MIN (>=60 (CALC)); SGOT/AST 20 u/l (14-36); SODIUM 135 mmol/l (137-146); TOTAL PROTEIN 6.2 g/dL (6.3-8.2)
[2020-07-12 06:18] LABS: POTASSIUM 5.2 mmol/l (3.5-5.1)
--- NOTE | 2020-07-12 06:48 | NUR ---
PT RESTING COMFORTABLY IN CHAIR AT BEDSIDE. NADE. VSS. WEANED TO 9LPM HFNC. BOILER TECHNICIAN TO MONITOR.
--- NOTE | 2020-07-12 06:55 | NUR ---
DR GALLARDO AT BEDSIDE
--- NOTE | 2020-07-12 06:56 | NUR ---
PT SITTING IN RECLINER. A&O X3. NO DISTRESS NOTED. O2 VIA NC @9L HIGH FLOW HUMIDIFIED IN PLACE. PT REPORTS THE USE OF OXYGEN AT HOME AT 5L. CURRENTLY SR ON MONITOR AT 64 BPM. CLEAR DIMINISHED BREATH SOUNDS HEARD UPON AUSCULTATION. BLE REDENDED. RLE WOUND NOTED. DRESSING REMOVED LEFT OPEN TO AIR. WOUND CARE CONSULT PLACED. WEAK PEDAL PULSES. ASSESSMENT COMPLETED. DISCUSSED POC. CALL LIGHT AND PERSONAL BELONGINGS LEFT WITHIN REACH.
--- NOTE | 2020-07-12 09:36 | NUR ---
PT SITTING IN CHAIR, NO DISTRESS NOTED. CALL LIGHT WITHIN REACH.
--- NOTE | 2020-07-12 11:00 | NUR ---
PT SITTING IN RECLINER. NO NEEDS AT THIS TIME. CALL LIGHT WITHIN REACH.
--- NOTE | 2020-07-12 13:05 | NUR ---
PT SITTING IN CHAIR. NO DISTRESS NOTED, CALL LIGHT WITHIN REACH.
--- NOTE | 2020-07-12 14:30 | NUR ---
ASSISTED PT WITH PERICARE, LARGE LOOSE BM. NEW GOWN GIVEN. ASSISTED PT TO RECLINER.
--- NOTE | 2020-07-12 18:28 | NUR ---
LAB AT BEDSIDE OBTAINING ZOE
--- NOTE | 2020-07-12 18:42 | NUR ---
PT IN BEDSIDE CHAIR, WATCHING TELEVISION. NO ACUTE DISTRESS NOTED. VITAL SIGNS STABLE. LAUNDRY SUPERVISOR TO MONITOR.
--- NOTE | 2020-07-12 19:07 | NUR ---
VANCO TROUGH 12. 1830 DOSE OF VANCOMYCIN STARTE ALFREDO THIS TIME.
--- NOTE | 2020-07-12 19:35 | NUR ---
SITTING AT SIDE OF BED. RESP NON-LABORED AT REST. O2 ON AT 9 L PER HFNC. BREATH SOUNDS IMPROVED SINCE WEDNESDAY-DIMINISHED THROUGHOUT, NO WHEEZING NOTED AT THIS TIME. CONTINUES TO HAVE ERYTHEMA AND EDEMA OF BLE. WEAKLY PALPABLE PEDAL PULSES PRESENT. SALINE LOCK IN CURRENTLY WITH VANCOMYCIN INFUSING, SITE BENIGN. INFANTRY SENIOR SERGEANT SHOWS SR. DISCUSSED PLAN OF CARE. DEMIES NEEDS AT THIS TIME. CALL LI INREACH,
--- NOTE | 2020-07-12 22:00 | NUR ---
RESTING IN BED. VSS. RESP NON-LABORED. SR ON MONITOR.
[2020-07-13] VITALS: BP 134/50
--- NOTE | 2020-07-13 | NUR ---
RESTING WITH EYES CLOSE DON ROUNDS. VSS. RESP NON-LABORED. MONITOR SR.
--- NOTE | 2020-07-13 01:57 | NUR ---
ASLEEP ON ROUNDS. SR ON MONITOR VSS. O2 SAT MAINTAINING GREATER THAN 90%
[2020-07-13 02:00] VITALS: BP 130/56
[2020-07-13 04:00] VITALS: BP 137/61
--- NOTE | 2020-07-13 04:30 | NUR ---
PATIENT AWAKE, SITTING UP AT SIDE OF BED WATCHING TV. VSS. SR ON MONITOR.
--- NOTE | 2020-07-13 05:20 | NUR ---
JASPAL TLYING DOWN IN BED AT THIS TIME WITH EYES CLOSED. O2 OFF PATIENT, O2 SAT DROPPED TO 72% REAPPLIED O2 AT 8 L HFNC, SAT GRADUALLY INCREASED TO 93%
[2020-07-13 05:37] LABS: HEMATOCRIT 53.1 % (37.0-47.0); HEMOGLOBIN 15.4 g/dl (12.0-16.0); MEAN CELL VOLUME 82.7 fL CALC (80.0-100.0); RED BLOOD COUNT 6.42 mill/uL (4.20-5.60); RED CELL DISTRI WIDTH 16.3 % (11.5-15.5)
[2020-07-13 05:47] LABS: ANION GAP 12 (6-22 (CALC)); BUN 47 mg/dL (7-17); BUN/CREATININE RATIO 65 (12-20 (CALC)); CARBON DIOXIDE 37 mmol/l (22-30); CHLORIDE 94 mmol/l (95-108); CREATININE 0.7 mg/dL (0.5-1.0); GFR > 60 ML/MIN (>=60 (CALC)); GFR FOR AFR.AMER. > 60 ML/MIN (>=60 (CALC)); POTASSIUM 5.1 mmol/l (3.5-5.1); SODIUM 137 mmol/l (137-146)
--- NOTE | 2020-07-13 05:53 | NUR ---
RESTING WITH EYES CLOSED. RESP NON-LABORED. VSS. SR ON MONITOR. SALINE LOCK IN LH FLUSHED AND PATENT.
[2020-07-13 06:00] VITALS: BP 136/67
--- NOTE | 2020-07-13 07:12 | NUR ---
PT REPORT RECEIVED FROM TRAIN CREW MEMBER. PT RESTING IN BED, NO COMPLAINTS, ON HIGH FLOW AT 6, CALL LIGHT WITHIN REACH. DENIES ANY NEEDS.
--- NOTE | 2020-07-13 07:46 | NUR ---
PT SITTING ON SIDE OF BED. NAD. VSS. DESKTOP SUPPORT TECHNICIAN TO MONITOR.
--- NOTE | 2020-07-13 08:44 | NUR ---
DR. PATEL EXPLAINING TO PT THAT SHE NEEDS TO STAY ANOTHER COUPLE OF DAYS. PT STATES SHE WANTS TO GO HOME TODAY. EXPLAINED THE RISKS AND BENEFITS ABOUT LEAVING BEFORE THE DOCTOR WANTED HER TO GO. PT STATES SHE STILL WANTS TO GO HOME, SHE FEELS READY AND WILL FOLLOW UP WITH HER DOCTOR NEEDED. DR. PATEL EXPLAINED HE WILL GIVE HER ANTIBIOTICS FOR HER DISCHARGE.
[2020-07-13] MEDS ORDERED: DOXYCYCL HYC100 MG PO (08:46)
[2020-07-13] MEDS ORDERED: KEFLEX750 M1 PO (08:46)
[2020-07-13] MEDS ORDERED: MEDDOSEPAK PO (08:47)
[2020-07-13 10:00] VITALS: BP 140/63
--- NOTE | 2020-07-13 11:33 | NUR ---
PTS RIDE HERE, PT DISCHARGED WITH INST. AND RX. PT TAKEN TO ER PARKING LOT PER W/C AND OXYGEN , PICKUP BY FRIEND. ASSISTED INTO TRUCK WITH NO COMPLAINTS OR PROBLEMS.
== END 2020-07-13 12:00 | disposition home or self-care (01) | DRG 602 ==
LOC: ED 13:47 → ED-I 16:05 → ED 16:26 → MS2 16:27 → ICU 07-09 20:44 → MS2 07-09 20:44 → ICU 07-10 07:46
PROVIDERS: Family Medicine; Nurse Practitioner; ADMIT Internal Medicine; ATTEND Internal Medicine
PROC: 5A09357 Assistance with Respiratory Ventilation, Less than 24 Consecutive Hours, Continuous Positive Airway Pressure (ICD-10-PCS; principal; 2020-07-10)
DX: L03.115 Cellulitis of right lower limb (principal); J96.22 Acute and chronic respiratory failure with hypercapnia; J96.21 Acute and chronic respiratory failure with hypoxia; J18.9 Pneumonia, unspecified organism; Z68.41 Body mass index [BMI] 40.0-44.9, adult; D68.0 Von Willebrand disease; L03.116 Cellulitis of left lower limb; J43.9 Emphysema, unspecified; I11.0 Hypertensive heart disease with heart failure; I50.9 Heart failure, unspecified; I87.2 Venous insufficiency (chronic) (peripheral); I87.303 Chronic venous hypertension (idiopathic) without complications of bilateral lower extremity; I89.0 Lymphedema, not elsewhere classified; I25.10 Atherosclerotic heart disease of native coronary artery without angina pectoris; I27.20 Pulmonary hypertension, unspecified; E11.42 Type 2 diabetes mellitus with diabetic polyneuropathy; E11.51 Type 2 diabetes mellitus with diabetic peripheral angiopathy without gangrene; E11.65 Type 2 diabetes mellitus with hyperglycemia; E66.01 Morbid (severe) obesity due to excess calories; E03.9 Hypothyroidism, unspecified; E78.5 Hyperlipidemia, unspecified; F32.9 Major depressive disorder, single episode, unspecified; F41.9 Anxiety disorder, unspecified; F17.210 Nicotine dependence, cigarettes, uncomplicated; Z91.19 Patient's noncompliance with other medical treatment and regimen; Z95.1 Presence of aortocoronary bypass graft; Z79.4 Long term (current) use of insulin; Z99.81 Dependence on supplemental oxygen; Z20.822 Contact with and (suspected) exposure to COVID-19
CPT/HCPCS: J1650; J3475; Q3014

== ENCOUNTER 2020-11-02 17:17 | Inpatient (IN) | payer OTHER ==
[~2020-11-02] VITALS: Ht 157.5 cm; Wt 90.9 kg
[~2020-11-02 17:17] MED LIST changes: +KEFLEX750 M1 PO; +MEDDOSEPAK PO
--- NOTE | 2020-11-02 17:17 | NUR ---
PT IMMEDIATELY TO ROOM VIA EMS.
[2020-11-02 18:01] LABS: HEMATOCRIT 51.6 % (37.0-47.0); HEMOGLOBIN 15.9 g/dl (12.0-16.0); IMMATURE GRANULOCYTES 0.3 % (0.0-5.0); MEAN CELL VOLUME 81.1 fL CALC (80.0-100.0); MEAN CORPUSCULAR HGB CONC 30.8 g/dL CAL (32.0-36.0); NEUT# 11.42 thou/uL (2.00-7.15); RED BLOOD COUNT 6.36 mill/uL (4.20-5.60); RED CELL DISTRI WIDTH 18.9 % (11.5-15.5)
[2020-11-02 18:20] LABS: ALBUMIN 3.8 g/dL (3.2-5.0); ALKALINE PHOSPHATASE 109 u/l (38-126); CARBON DIOXIDE 31 mmol/l (22-30); CHLORIDE 95 mmol/l (95-108); CREATININE 0.6 mg/dL (0.5-1.0); GFR > 60 ML/MIN (>=60 (CALC)); GFR FOR AFR.AMER. > 60 ML/MIN (>=60 (CALC)); LIPASE 183 u/l (23-300); SGOT/AST 26 u/l (14-36); SODIUM 135 mmol/l (137-146); TOTAL PROTEIN 7.2 g/dL (6.3-8.2)
[2020-11-02 18:21] LABS: D-DIMER 1.49 mg/L (0.19-0.60)
[2020-11-02 18:22] LABS: ANION GAP 13 (6-22 (CALC)); BILIRUBIN, TOTAL 1.1 mg/dL (0.0-1.4); BUN 13 mg/dL (7-17); BUN/CREATININE RATIO 22 (12-20 (CALC))
[2020-11-02 18:27] LABS: ACT PARTIAL THROMBO TIME 25.2 SECONDS (20.0-32.5); INTERNATIONAL NORMALIZED RATIO 1.2 RATIO (0.7-1.3); PROTHROMBIN TIME 12.3 SECONDS (9.0-12.5)
--- NOTE | 2020-11-02 18:57 | NUR ---
REPORT TO LISA, RN
--- NOTE | 2020-11-02 19:00 | NUR ---
ULTRASOUND AT BEDSIDE
--- NOTE | 2020-11-02 19:07 | NUR ---
W/P/D SKIN OM BIPAP AT FIO2 35% RR IS 22/M DENIES PAIN NOR SOB CLEAR BILAT BREATH SOUNDS.NO BRONCHOSPASM.EXTERNAL URINARY CATH PLACED AT EXTERJAL GENITALIS TO LIS
--- NOTE | 2020-11-02 21:13 | NUR ---
W/P/D SKIN BIPAP SETTINGS UNCHANGED.NO COUGH NI RESP SPEAMS SR NO ST T CHANGES NO ECTOPY.300CC YELLOW URINAERY OUTPUT VIA EXTERNAL APPLIANCE
--- NOTE | 2020-11-02 22:31 | NUR ---
awakened from sleep a/ox3 w/p/d skin on biopapcomtinuous.sr no ectopy no st t changes
[2020-11-03] VITALS (18 sets, daily range): BP systolic 103–133; BP diastolic 43–70
[2020-11-03 00:37] LABS: URINE BILIRUBIN - DIPSTICK NEGATIVE (NEGATIVE); URINE BLOOD DIPSTICK NEGATIVE (NEGATIVE); URINE CLARITY CLEAR; URINE COLOR YELLOW; URINE GLUCOSE - DIPSTICK >=1000 mg/dL (NEGATIVE); URINE KETONE NEGATIVE (NEGATIVE); URINE LEUK ESTERASE NEGATIVE (Negative); URINE NITRITE - DIPSTICK NEGATIVE (Negative); URINE PH 5.5 (4.5-8.0); URINE PROTEIN - DIPSTICK NEGATIVE (NEG-TRACE); URINE UROBILINOGEN - DIPSTICK 0.2 E.U./dL (0.2)
--- NOTE | 2020-11-03 00:39 | NUR ---
report rec'd from danny Peck. Will not physically be admitted to icu. will stay in er rm 14 d/t staffing shortage issues. phototypesetting equipment monitor shows sinus rhythm. #20 lfa saline lock. #20 rac ns began @ 125cchr as ordered. history obtained per er record & old h&p. bipap conts. fall precautions initiated.
--- NOTE | 2020-11-03 00:39 | NUR ---
pt is VERY unkept.
--- NOTE | 2020-11-03 00:40 | NUR ---
pt report to icu nurse riki
--- NOTE | 2020-11-03 02:00 | NUR ---
resting quietly. resps even & unlabored. bipap conts.
--- NOTE | 2020-11-03 04:00 | NUR ---
lab here. blood drawn.
[2020-11-03 04:18] LABS: HEMATOCRIT 50.3 % (37.0-47.0); HEMOGLOBIN 15.2 g/dl (12.0-16.0); IMMATURE GRANULOCYTES 0.2 % (0.0-5.0); MEAN CELL VOLUME 82.6 fL CALC (80.0-100.0); MEAN CORPUSCULAR HGB CONC 30.2 g/dL CAL (32.0-36.0); NEUT# 8.8 thou/uL (2.00-7.15); RED BLOOD COUNT 6.09 mill/uL (4.20-5.60); RED CELL DISTRI WIDTH 18.9 % (11.5-15.5)
[2020-11-03 04:41] LABS: ANION GAP 12 (6-22 (CALC)); BUN 14 mg/dL (7-17); BUN/CREATININE RATIO 22 (12-20 (CALC)); CARBON DIOXIDE 30 mmol/l (22-30); CHLORIDE 98 mmol/l (95-108); CREATININE 0.6 mg/dL (0.5-1.0); GFR > 60 ML/MIN (>=60 (CALC)); GFR FOR AFR.AMER. > 60 ML/MIN (>=60 (CALC)); POTASSIUM 4.2 mmol/l (3.5-5.1); SODIUM 135 mmol/l (137-146)
--- NOTE | 2020-11-03 07:10 | NUR ---
RECIEVED PATIENT FROM NIGHT NURSE.
--- NOTE | 2020-11-03 07:20 | NUR ---
pt resting on stretcher with eyes closed; easily aroused; pt offers no complaints; assessment completed at this time; pt alert and oriented; pt admits to back discomfort; will convert to pt bed for comfort; no n/v noted; resp even and unlabored; lungs clear anterior/ coarse with rales to bilat bases in posterior; moist loose ekg manager cough noted; hr reg; strong pulses; edema noted to ble; sr on monitor; edema noted worse to lle; abd soft/ distended with bs present; no bm noted per promotion writer; purewick intact draining clear yellow urine; #20 rac patent with ivf infusing without complication; #20 ems site to lfa; no redness or edema noted at site; redness noted to ble worse to lle; open area noted to left great toe; plan of care explained; call light within reach; will continue to monitor
--- NOTE | 2020-11-03 07:25 | NUR ---
BIPAP STANDBY. PLACED ON 5L NC
--- NOTE | 2020-11-03 08:20 | NUR ---
awake sitting on the side of bed eating breakfast; no apparent distress noted; sr on monitor; offers no complaints; o2 per nc at 5L; assisted to bsc; able to void lg quanity clear yellow urine; linens changed d/t incontinence; call light within reach; will continue to monitor
--- NOTE | 2020-11-03 09:45 | NUR ---
awake in bed; offers no complaints; cont with o2 per nc; iv patent; socks applied as per pt request; po fluids provided; will continue to monitor
--- NOTE | 2020-11-03 10:30 | NUR ---
resting in bed with eyes closed; no apparent distress noted; resp even and unlabored; o2 per nc; iv intact and patent; abt/fluids infusing without complication; no redness or edema noted at site; sr on monitor; call light within reach; will continue to monitor
--- NOTE | 2020-11-03 11:22 | NUR ---
assisted to bsc then chair for comfort; will continue to monitor
--- NOTE | 2020-11-03 12:00 | NUR ---
awake sitting on the side of the bed eating lunch; offers no complaints; no apparent distress noted; o2 per nc; iv intact and patent; sr on monitor; call light within reach; will continue to monitor
--- NOTE | 2020-11-03 13:12 | NUR ---
awake in chair; plan of care including transfer to med surg explained; awaiting bed assignment; will continue to monitor
--- NOTE | 2020-11-03 13:36 | NUR ---
report called to Marcelle Dowell; pt to transfer to med surg [id number]
--- NOTE | 2020-11-03 13:36 | NUR ---
REPORT RECEIVED FROM LESLIERN
--- NOTE | 2020-11-03 13:49 | NUR ---
PT ARRIVED TO MED/SURG ROOM 268 IN STABLE CONDITION VIA WHEELCHAIR ACCOMPANIED BY PEYTON NELSON;PT ASSISTED TO RECLINER WITH X1 ASSIST;VS OBTAINED BY ESSENCE HANCOCK;PT A&O X3, ORIENTED TO ROOM AND CALL LIGHT SYSTEM;PT DENIES ANY CURRENT PAIN OR DISCOMFORTS,PAIN SCALE AND REPORTING EDUCATED;RESPIRATIONS EVEN AND UNLABORED ON O2 @ 5L VIA NC-PT IS HOME DEPENDENT ON 5L;NON-PRODUCTIVE COUGH NOTED AT TIMES;ABDOMEN DISTENDED/SOFT ON PALPATION AND ACTIVE IN ALL 4 QUADRANTS;WEAK PEDAL PULSES;EDEMA NOTED TO BLE, ENCOURAGED ELEVATION;REDDNESS NOTED TO BLE, WORSE ON THE LEFT;WOUND TO RIGHT GREAT TOE, [place];#20G TO RAC INFUSING NS @ 125ML/HR,SITE APPEARS HEALTHY;EMS #20G TO LFA FLUSHED AND PATENT,SITE APPEARS HEALTHY;PT ASSISTED TO BEDSIDE COMMODE AND VOIDED 300CC CLEAR/YELLOW URINE;FALL AND ALLERGY BANDS NOTED;PT DENIES ANY ADDITIONAL NEEDS;ENCOURAGED TO CALL FOR ASSISTANCE IF NEEDED;FALL PRECAUTIONS IN PLACE WITH BED IN THE LOWEST POSITION AND CALL LIGHT IN REACH;WILL CONTINUE TO MONITOR
--- NOTE | 2020-11-03 13:50 | NUR ---
pt transferred to med surg 268 via wc with portable o2 in stable condition; personal belongings and home meds sent with pt; Marcelle Dowell at bedside
--- NOTE | 2020-11-03 13:59 | NUR ---
S: DOROTEO NICHOLS is a 54 F who presents with CELLULITIS. She has a history of DIABETIC FOOT ULCER. All medications in patient's chart were reviewed. O: VS: T 97.6 W 90kg Scr=0.6,CrCl= 90ml/min A: Blood culture <is pending P: Patient is on ZOSYN 3.375G. Vancomycin ordered for pharmacy to dose. Start Vancomycin 1 GRAM IV Q8H. Vancomycin trough is drawn before the 4th dose on 11/04/20 @0930. I DID NOT COUNT FIRST DOSE IN ED ON 11/02/16 @1700 Vancomycin goal trough is between 10-20 mcg/ml. Pharmacy will follow and or advise on antibiotics use as needed. BERYL CAMERON PHARMD
--- NOTE | 2020-11-03 14:00 | NUR ---
HOME MEDICATIONS PLACED IN SAFETY BAG AND SENT TO PHARMACY.
--- NOTE | 2020-11-03 15:40 | NUR ---
PT OOB SLEEPING IN RECLINER;RESPIRATIONS APPEAR EVEN AND UNLABORED ON O2 @ 5L VIA NC;NO S/S OF DISTRESS NOTED;IV FLUIDS INFUSING WITH EASE TO RAC;ALL SAFETY PRECAUTIONS REMAIN IN PLACE WITH CALL LIGHT IN REACH;WILL CONTINUE TO MONITOR
--- NOTE | 2020-11-03 16:00 | NUR ---
EMS #20G TO LFA REMOVED WITH CATHETER INTACT DUE TO EXPIRATION DATE,PT TOLERATED WELL.
--- NOTE | 2020-11-03 19:01 | NUR ---
REPORT FROM KEVIN SEPULVEDA. ASSUMED PT CARE.
--- NOTE | 2020-11-03 21:50 | NUR ---
PT NOTED SITTING UP IN CHAIR AT BEDSIDE WATCHING TV. NO APPARENT DISTRESS NOTED. PT ALERT AND ORIENTED X3. RESPIRATIONS EVEN AND UNLABORED. IV SITE APPEARS HEALTHY WITH IVF INFUSING. PT DENIES ANY CURRENT WANTS OR NEEDS. PT DENIES ANY PAIN OR DISCOMFORT. CALL LIGHT WITHIN REACH. WILL CONTINUE TO MONITOR.
--- NOTE | 2020-11-04 00:19 | NUR ---
IV ABT INFUSING WITHOUT DIFFICULTY. PT TOLERATING WELL. COFFEE AND CRACKERS PROVIDED UPON REQUEST. NO OTHER CURRENT WANTS OR NEEDS. CALL LIGHT WITHIN REACH. WILL CONTINUE TO MONITOR.
--- NOTE | 2020-11-04 03:23 | NUR ---
COMPLETE LINEN CHANGE AT THIS TIME. ASSISTED PT UP TO BSC. PT HAD SOME INCONTINENCE OF BLADDER DURING TRANSFER. ASSISTED PT WITH PERICARE. NEW GOWN PROVIDED. ASSISTED PT BACK INTO BED. NO APPARENT DISTRESS NOTED. O2 @ 5L/M VIA NC. RESPIRATIONS EVEN AND UNLABORED. CALL LIGHT WITHIN REACH. WILL CONTINUE TO MONITOR.
[2020-11-04 04:00] VITALS: BP 112/51
--- NOTE | 2020-11-04 04:30 | NUR ---
SOLAR SITE ASSESSMENT SPECIALIST IN ROOM TO OBTAIN LABS AT THIS TIME.
[2020-11-04 06:11] LABS: HEMATOCRIT 50.6 % (37.0-47.0); HEMOGLOBIN 15.1 g/dl (12.0-16.0); MEAN CELL VOLUME 83.9 fL CALC (80.0-100.0); MEAN CORPUSCULAR HGB CONC 29.8 g/dL CAL (32.0-36.0); RED BLOOD COUNT 6.03 mill/uL (4.20-5.60); RED CELL DISTRI WIDTH 18.4 % (11.5-15.5)
--- NOTE | 2020-11-04 06:19 | NUR ---
PT IN NAD. VSS. PT SPEAKING IN FULL SEMTENCES. WAS COVERSING WITH KAYAKING INSTRUCTOR ABOUT [place]. KAYAKING INSTRUCTOR TO MONITOR.
[2020-11-04 06:29] LABS: ANION GAP 11 (6-22 (CALC)); BUN 19 mg/dL (7-17); BUN/CREATININE RATIO 26 (12-20 (CALC)); CARBON DIOXIDE 33 mmol/l (22-30); CHLORIDE 96 mmol/l (95-108); CREATININE 0.7 mg/dL (0.5-1.0); GFR > 60 ML/MIN (>=60 (CALC)); GFR FOR AFR.AMER. > 60 ML/MIN (>=60 (CALC)); POTASSIUM 3.8 mmol/l (3.5-5.1); SODIUM 136 mmol/l (137-146)
[2020-11-04 06:36] LABS: MAGNESIUM 1.9 mg/dL (1.6-2.3)
--- NOTE | 2020-11-04 07:00 | NUR ---
PT REPORT RECEIVED FROM NIGHT NURSESANDRITA
--- NOTE | 2020-11-04 07:00 | NUR ---
PATIENT ACCUCHECK WAS 67, NURSE NOTIFIED.
[2020-11-04 08:00] VITALS: BP 130/64
--- NOTE | 2020-11-04 08:00 | NUR ---
PT WAS FOUND SITTING ON SIDE OF BED EATING BREAKFAST;PT IS A&OX3;VS AND ASSESSMENT WERE COMPLETED;PT HAS NO REPORTS OF PAIN AT THIS TIME;HEART SOUNDS ARE REGULAR IN RATE AND RHYTHM;LUNG SOUNDS HAVE SLIGHT WHEEZING NOTED THROUGHOUT;RESPIRATIONS ARE EVEN AND UNLABORED ON O2@5L VIA NC;PT IS REPORTING A NON-PRODUCTIVE COUGH;PT HAS EDEMA WITH CELLULITIS PRESENT IN BLE, WITH THE LT SIDE WORSE THAN THE RT;PT ALSO HAS A WOUND ON THE BOTTOM OF LT GREAT TOE;WOUND IS NOT COVERED AND APPEARS TO BE CALLOUSED AND CLOSED;PT HAS A WOUND CARE CONSULT SCHEDULED FOR TODAY;#20G IV IN RAC IS RUNNING NS@125 ML/HR;IV SITE IS PATENT AND APPEARS FREE OF COMPLICATIONS AT THIS TIME;SAFETY PRECAUTIONS IN PLACE;CALL LIGHT WITHIN REACH;PT ENCOURAGED TO CALL WITH ANY NEEDS OR CONCERNS;WILL CONTINUE TO MONITOR.
--- NOTE | 2020-11-04 08:50 | NUR ---
PT UP WITH MINIMAL ASSISTANCE TO THE BEDSIDE COMMODE AND THEN TO THE CHAIR. PT WAS ASKED AT THIS TIME IF SHE WANTED TO GET WASHED UP. PT STATED SHE DID THIS IN THE AM BUT SHE WOULD LIKE HER LINENS CHANGED. RESTAURANT BUSSER TOLD HER THAT WOULDNT BE A PROBLEM. PT CURRENTLY IN THE CHAIR WITH HER CUP OF COFFEE AND CALL LIGHT NEXT TO PT IN CHAIR. ALL NEEDS MET AT THIS TIME.
--- NOTE | 2020-11-04 12:00 | NUR ---
PT WAS FOUND SITTING IN BEDSIDE CHAIR EATING LUNCH;IV ABX ARE INFUSING WELL AT THIS TIME;SAFETY PRECAUTIONS IN PLACE;CALL LIGHT WITHIN REACH;WILL CONTINUE TO MONITOR.
--- NOTE | 2020-11-04 12:50 | NUR ---
AT BEDSIDE ASSESSING WOUND AND PROVIDING CARE
--- NOTE | 2020-11-04 12:52 | NUR ---
S: DOROTEO NICHOLS is a 54 F who presents with LLE cellulitis. She has a history of HTN, COPD, CHF IDDM, ALYSON, CAD, PVD pulmonary, peripheral neuropathy, depression, anxiety willington disease, kidney failure, obesity. All medications in patient's chart were reviewed. O: VS: BP 130/64 mmHg, P 66 bpm, RR 18 bpm, T 97.1 F W 90 kg, HT 62 in, Scr= 0.7 mg/dl, CrCl= 95.8 ml/min Vacomycin trough level = 17 ug/ml A: Vancomycin trough level supratherapeutic. Will decrease dose. Blood culture preliminary shows no growth. P: Patient is on Zosyn 3.375 g IV Q6H and Vancomycin 1 g IV Q8H. Vancomycin ordered for pharmacy to dose. Decrease Vancomycin 1 g IV Q12H. Vancomycin trough is drawn before the 4th dose on 11/05 @ 2130. Vancomycin goal trough is between 10-15 mcg/ml. Pharmacy will follow and or advise on antibiotics use as needed.
--- NOTE | 2020-11-04 13:12 | NUR ---
PT C RN AND [facility] PROVIDERS. PT IN CHAIR. NAD. MCCAULEY. SPEAKING ABOUT WOUNDS C HCPs.
--- NOTE | 2020-11-04 13:20 | NUR ---
ON TELE CONSULT WITH PT
[2020-11-04 15:20] VITALS: BP 118/64
--- NOTE | 2020-11-04 16:00 | NUR ---
PT WAS FOUND RESTING IN BEDSIDE CHAIR;#22G IV IN IS RUNNING NS@20ML/HR;IV SITE IS PATENT AND APPEARS FREE OF COMPLICATIONS AT THIS TIME;SAFETY PRECAUTIONS IN PLACE;O2@5L VIA NC IS IN PLACE;RESPIRATIONS ARE EVEN AND UNLABORED;SAFETY PRECAUTIONS IN PLACE;CALL LIGHT WITHIN REACH;WILL CONTINUE TO MONITOR.
[2020-11-04 18:57] VITALS: BP 126/58
--- NOTE | 2020-11-04 20:00 | NUR ---
RECEIVED REPORT FROM NURSE TUAN PATIENT SITTING IN CHAIR TALKING ON THE PHONE, CONNCETED TO O2 @ 5LPM VIA NC, SHALLOW BREATHING OCCASIONAL COUGH NOTED, NON PRODUCTIVE, EXERTIONAL DYSPNEA NOTED, WITH IV ON RT HAND G22 NS @ 20CC/HR INFUSING WELL, ACTIVE BOWEL SOUNDS LBM 11/02, PATIENT IS SMOKER, REQUESTING NICOTINE PATCH AND LAXATIVE, WILL INFORM CLINICAL REVIEWER, LEFT LOWER EXTREMITY APPEARS TO BE RED, OPEN WOUND ON LEFT GREAT TOE ORDERED OPEN TO AIR, CALL LIGHT AT REACH.
--- NOTE | 2020-11-04 22:00 | NUR ---
NEW ORDER TO START [employer].
--- NOTE | 2020-11-05 00:13 | NUR ---
PATIENT APPEARS TO BED SLEEPING WITH EYES CLOSED, REMAINS ON O2 @ 5LPM VIA NC, BREATHING SHALLOW UNLABORED CALL LIGHT AT REACH.
[2020-11-05 03:53] VITALS: BP 130/63
--- NOTE | 2020-11-05 04:00 | NUR ---
PATIENT AWAKE AT THIS TIME, SITTING ON THE BED, WATCHING TV, REMAINS ON O2 @ 5LPM VIA NC, BREATHING UNLABORED, NO C/O PAIN AT THIS TIME, CALL LIGHT AT REACH.
[2020-11-05 05:33] LABS: HEMATOCRIT 50.8 % (37.0-47.0); HEMOGLOBIN 15.4 g/dl (12.0-16.0); MEAN CELL VOLUME 83.3 fL CALC (80.0-100.0); MEAN CORPUSCULAR HGB 25.2 pG CALC (26.0-32.0); MEAN CORPUSCULAR HGB CONC 30.3 g/dL CAL (32.0-36.0); RED BLOOD COUNT 6.1 mill/uL (4.20-5.60); RED CELL DISTRI WIDTH 18.1 % (11.5-15.5)
[2020-11-05 05:51] LABS: ANION GAP 11 (6-22 (CALC)); BUN 18 mg/dL (7-17); BUN/CREATININE RATIO 20 (12-20 (CALC)); CARBON DIOXIDE 36 mmol/l (22-30); CHLORIDE 95 mmol/l (95-108); CREATININE 0.9 mg/dL (0.5-1.0); GFR > 60 ML/MIN (>=60 (CALC)); GFR FOR AFR.AMER. > 60 ML/MIN (>=60 (CALC)); MAGNESIUM 2.2 mg/dL (1.6-2.3); POTASSIUM 4.9 mmol/l (3.5-5.1); SODIUM 137 mmol/l (137-146)
--- NOTE | 2020-11-05 07:00 | NUR ---
PT REPORT RECEIVED FROM NIGHT NURSERANDY
--- NOTE | 2020-11-05 08:00 | NUR ---
PT WAS FOUND RESTING IN BED IN SEMI-CHANCE'S POSITION;PT IS A&OX3;VS AND ASSESSMENT WERE COMPLETED;PT HAS NO REPORTS OF PAIN AT THIS TIME;HEART SOUNDS ARE REGULAR IN RATE AND RHYTHM;LUNG SOUNDS ARE WHEEZY THROUGHOUT ALL LOBES;RESPIRATIONS ARE EVEN AND UNLABORED ON O2@5L VIA NC;PT O2 REMAINS STEADY AT 92%;PT HAS BILATERAL TRACE EDEMA PRESENT IN LOWER EXTREMETIES WITH CELLULITIS;PT LEFT LEG APPEARS MORE SWOLLEN THAN THE RT;PT HAS A WOUND PRESENT ON LEFT GREAT TOE THAT IS CALLOUSED AND LEIGHTON;PT HAS ACTIVE BOWEL SOUNDS PRESENT IN ALL QUADRANTS AND ABDOMEN IS SOFT;#22G IV IN LH IS RUNNING NS@20ML/HR;IV SITE APPEARS FREE OF COMPLICATIONS AT THIS TIME;SAFETY PRECAUTIONS IN PLACE;CALL LIGHT WITHIN REACH;PT ENCOURAGED TO CALL WITH ANY NEEDS OR CONCERNS;BED IN LOWEST POSITION;WILL CONTINUE TO MONITOR.
--- NOTE | 2020-11-05 08:35 | NUR ---
AND GABRIELLE CHRISTY AT BEDSIDE DISCUSSING POC WITH PT
[2020-11-05 09:15] VITALS: BP 106/57
[2020-11-05 09:43] VITALS: BP 106/57
[2020-11-05] MEDS ORDERED: KEFLEX750 M1 PO (10:43)
[2020-11-05] MEDS ORDERED: DOXYCYCL HYC100 MG PO (10:43)
--- NOTE | 2020-11-05 12:00 | NUR ---
PT WAS FOUND SITTING ON EDGE OF BED EATING LUNCH;PT IS BEING DISCHARGED TODAY;O2@5L VIA NC IS IN PLACE;SAFETY PRECAUTIONS IN PLACE;CALL LIGHT WITHIN REACH;WILL CONTINUE TO MONITOR.
--- NOTE | 2020-11-05 12:20 | NUR ---
ATTEMPTED TO PERFORM DRESSING CHANGE ON PT BEFORE DC;MEDICATION CADEXOMER/IODOSORB THAT RECOMMENDED IN ORDERS WAS UNAVAILABLE PER PHARMACIST;PHARMACIST MADE CALL TO WOUND CARE CENTER AND PHYSICIAN STATED THE WOUND COULD BE CLEANED AND DRESSED WITHOUT MEDICATION DUE TO PT NOT WILLING TO STAY AND WAIT FOR MED TO BE OBTAINED;PT WAS ASKED TO FOLLOW UP WITH WOUND CARE AFTER DC
--- NOTE | 2020-11-05 12:55 | NUR ---
Discharge instructions given. Patient verbalizes understanding of same. Discharged in stable condition via Wheelchair to Home with family. All belongings sent with pt. DISCHARGE PACKET WAS GIVEN TO PT;DC INSTRUCTIONS AND MEDICATIONS WERE EXPLAINED TO PT;PT EXPRESSED UNDERSTANDING AND HAD NO FURTHER QUESTIONS; SIGNATURE WAS OBTAINED;IV WAS REMOVED WITHOUT COMPLICATIONS AND CATHETER INTACT;PT WILL BE TRANSPORTED HOME WITH FAMILY PT WAS TRANSPORTED TO [facility] VIA IN STABLE CONDITION ACCOMPANIED BY STAFF;ALL PT BELONGINGS WERE SENT WITH PT;PT HOME MEDICATIONS THAT WERE BEING HELD IN PHARMACY WERE ALSO SENT HOME WITH PT;PT WILL BE TRANSPORTED HOME WITH FAMILY.
[2021-01-07] MEDS ORDERED: BUSPAR10 M1 PO (09:24)
[2021-01-07] MEDS ORDERED: TRAMADOL HCL50 MG PO ×2 (10:08→10:10)
== END 2020-11-05 12:55 | disposition home or self-care (01) | DRG 603 ==
LOC: ED 17:17 → ED-I 23:00 → ED 23:40 → ED-I 23:41 → MS2 23:41
PROVIDERS: Nurse Practitioner; ADMIT Internal Medicine; ATTEND Internal Medicine
PROC: 5A09357 Assistance with Respiratory Ventilation, Less than 24 Consecutive Hours, Continuous Positive Airway Pressure (ICD-10-PCS; principal; 2020-11-02)
DX: L03.116 Cellulitis of left lower limb (principal); J96.12 Chronic respiratory failure with hypercapnia; J96.11 Chronic respiratory failure with hypoxia; I13.0 Hypertensive heart and chronic kidney disease with heart failure and stage 1 through stage 4 chronic kidney disease, or unspecified chronic kidney disease; D68.0 Von Willebrand disease; J43.9 Emphysema, unspecified; E11.51 Type 2 diabetes mellitus with diabetic peripheral angiopathy without gangrene; E11.621 Type 2 diabetes mellitus with foot ulcer; E11.22 Type 2 diabetes mellitus with diabetic chronic kidney disease; N18.9 Chronic kidney disease, unspecified; L97.529 Non-pressure chronic ulcer of other part of left foot with unspecified severity; I50.9 Heart failure, unspecified; E11.42 Type 2 diabetes mellitus with diabetic polyneuropathy; E66.01 Morbid (severe) obesity due to excess calories; I45.10 Unspecified right bundle-branch block; I25.10 Atherosclerotic heart disease of native coronary artery without angina pectoris; F32.9 Major depressive disorder, single episode, unspecified; E03.9 Hypothyroidism, unspecified; F41.9 Anxiety disorder, unspecified; I27.20 Pulmonary hypertension, unspecified; F17.200 Nicotine dependence, unspecified, uncomplicated; Z68.36 Body mass index [BMI] 36.0-36.9, adult; Z79.4 Long term (current) use of insulin; Z99.81 Dependence on supplemental oxygen; Z86.711 Personal history of pulmonary embolism; Z20.822 Contact with and (suspected) exposure to COVID-19
CPT/HCPCS: J0692; J1650; Q3014; Q9967

== ENCOUNTER 2020-11-25 17:03 | Observation (INO) | payer OTHER ==
[~2020-11-25] VITALS: Ht 157.5 cm; Wt 80.0 kg
--- NOTE | 2020-11-25 17:10 | NUR ---
O2 VIA NC APPLIED BY ARY FERRARO
--- NOTE | 2020-11-25 17:13 | NUR ---
and angela at bedside
--- NOTE | 2020-11-25 17:28 | NUR ---
PATIENT STATES CHEST PAIN IS GONE, DR AT BEDSIDE AND AWARE.
--- NOTE | 2020-11-25 17:30 | NUR ---
PATIENT AMBULATES TO BATHROOM, STEADY GAIT. NO DISTRESS.
--- NOTE | 2020-11-25 17:35 | NUR ---
UNABLE TO OBTAIN URINE SPECIMEN, MISSED THE HAT. WILL TRY AGAIN WHEN ABLE.
--- NOTE | 2020-11-25 17:48 | NUR ---
RIGHT SIDED EKG AND 12-LEAD EKG COMPLETED.
[2020-11-25 17:51] LABS: IMMATURE GRANULOCYTES 0.1 % (0.0-5.0); MEAN CORPUSCULAR HGB 23.8 pG CALC (26.0-32.0); MEAN CORPUSCULAR HGB CONC 31.1 g/dL CAL (32.0-36.0); RED BLOOD COUNT 7.49 mill/uL (4.20-5.60); RED CELL DISTRI WIDTH 17.7 % (11.5-15.5)
[2020-11-25 17:52] LABS: HEMATOCRIT 57.3 % (37.0-47.0); HEMOGLOBIN 17.8 g/dl (12.0-16.0); MEAN CELL VOLUME 76.5 fL CALC (80.0-100.0)
[2020-11-25 17:58] LABS: ALBUMIN 4.6 g/dL (3.2-5.0); ALKALINE PHOSPHATASE 107 u/l (38-126); ANION GAP 16 (6-22 (CALC)); BILIRUBIN, TOTAL 1.6 mg/dL (0.0-1.4); BUN 18 mg/dL (7-17); BUN/CREATININE RATIO 27 (12-20 (CALC)); CARBON DIOXIDE 31 mmol/l (22-30); CHLORIDE 87 mmol/l (95-108); CREATININE 0.7 mg/dL (0.5-1.0); GFR > 60 ML/MIN (>=60 (CALC)); GFR FOR AFR.AMER. > 60 ML/MIN (>=60 (CALC)); LIPASE 299 u/l (23-300); SGOT/AST 71 u/l (14-36); SODIUM 130 mmol/l (137-146); TOTAL PROTEIN 8.6 g/dL (6.3-8.2)
[2020-11-25 18:09] LABS: MYOGLOBIN 47 ng/mL (0 - 62)
--- NOTE | 2020-11-25 18:15 | NUR ---
PATIENT RESTING, VSS. NO DISTRESS OR CHEST PAIN AT THISTIMEE.
--- NOTE | 2020-11-25 18:30 | NUR ---
UNABLE TO OBTAIN MED LIST, PHARMACY CONSULT PLACED.
--- NOTE | 2020-11-25 18:40 | NUR ---
DR CARLIN AT BEDSIDE DISCUSSING PLAN. OK FOR PATIENT TO DRINK PER DR CARLIN.
[2020-11-25 18:43] LABS: ACT PARTIAL THROMBO TIME 26.4 SECONDS (20.0-32.5); INTERNATIONAL NORMALIZED RATIO 1.1 RATIO (0.7-1.3); PROTHROMBIN TIME 11.9 SECONDS (9.0-12.5)
--- NOTE | 2020-11-25 19:30 | NUR ---
SANDWICH AND DRINK PROVDIED
--- NOTE | 2020-11-25 20:25 | NUR ---
PATIENT C/O CHEST PAIN, DIAPHORESIS, AND NAUSEA. EKG REPEATED. CALL PLACED TO PROVIDER.
--- NOTE | 2020-11-25 20:39 | NUR ---
CALL PLACED TO ARY GUERRA FOR INCREASED CHEST PAIN/DIAPHORESIS, AND NAUSEA. STATES WILL PUT ORDERS IN.
[2020-11-25 21:10] LABS: URINE BILIRUBIN - DIPSTICK NEGATIVE (NEGATIVE); URINE BLOOD DIPSTICK NEGATIVE (NEGATIVE); URINE COLOR YELLOW; URINE GLUCOSE - DIPSTICK >=1000 mg/dL (NEGATIVE); URINE KETONE TRACE mg/dL (NEGATIVE); URINE LEUK ESTERASE NEGATIVE (NEGATIVE); URINE PROTEIN - DIPSTICK 100 mg/dL (NEG-TRACE); URINE SPECIFIC GRAVITY 1.015; URINE UROBILINOGEN - DIPSTICK 0.2 E.U./dL (0.2)
--- NOTE | 2020-11-25 21:11 | NUR ---
NITRO PASTTE, XOFRAN, FLUIDS AND ABX GIVEN PER EMAR. PATIENT IS RESTING WITH EYES CLOSED. NO DISTRESS AT THIS TIME.
[2020-11-25 21:14] LABS: URINE NITRITE - DIPSTICK NEGATIVE (Negative)
[2020-11-25 21:15] LABS: URINE RBC 0-2 RBC/hpf (0-5); URINE SQUAMOUS EPITHELIAL CELL FEW EPI/hpf (0-FEW); URINE WBC 0-2 WBC/hpf (0-5)
--- NOTE | 2020-11-25 21:17 | NUR ---
REPORT CALLED TO PEYTON FORDE. ALL QUESTIONS ANSWERED
--- NOTE | 2020-11-25 21:32 | NUR ---
Admission Note Report Given to: Transported by: Wheelchair X Stretcher Transported with: X Nurse Transporter X Patent IV X O2 X Pick Up Truck Driver Location: ICU X MS2
--- NOTE | 2020-11-25 21:44 | NUR ---
PT RECEIVED FROM ED TO ROOM 279. ARRIVES VIA STRETCHER ACCOMPANIED BY LENCHO TODD. PT AMBULATORY TO BED. GAIT STEADY. PT DENIES PAIN AT THIS TIME. ORIENTED TO UNIT, ROOM, CALL LI, LIGHTS, TV. ICE WATER PROVIDED. CALL LI WITHIN REACH. AGREES TO CALL PRN.
--- NOTE | 2020-11-25 22:00 | NUR ---
PHYSICAL ASSESMENT COMPLETE. PT CURRENTLY DENIES CHEST PAIN OR DISCOMFORT. SCHEDULED MEDICATIONS AND PRN MEDICATION ADMINISTERED, SEE E-MAR. RESPIRATIONS ARE NON LABORED. HEART RATE IS SINUS RHYTHM. PT DENIES ANY NEEDS AT THIS TIME. PLAN OF CARE REVIEWED, PT DENIES QUESTIONS, VERBALIZES UNDERSTANDING. ITEMS WITHIN REACH, BED LOCKED IN LOW POSITION W/ BEDRAILS UP X2. CALL LI WITHIN REACH, AGREES TO CALL PRN.
[2020-11-25 22:03] VITALS: BP 160/74
--- NOTE | 2020-11-25 23:15 | NUR ---
PT WENT FOR CT SCAN.
--- NOTE | 2020-11-25 23:45 | NUR ---
PT RETURNED FROM CT AND RESUMED IV FLUIDS.
--- NOTE | 2020-11-26 00:10 | NUR ---
PT LAYING IN BED WITH EYES CLOSED, APPEARS TO BE SLEEPING, APPEARS COMFORTABLE AND IN NO DISTRESS. RESPIRATIONS REGULAR AND UNLABORED. ITEMS REMAIN WITHIN REACH, CALL LI REMAINS WITHIN REACH. BED REMAINS LOCKED AND IN LOW POSITION WITH BEDRAILS UP X2. WILL CONTINUE TO MONITOR.
[2020-11-26 00:37] VITALS: BP 146/66
--- NOTE | 2020-11-26 04:10 | NUR ---
PT RESTING IN BED, NO SIGNS OF DISTRESS NOTED, RESP EVEN AND UNLABORED. PT VOICES NO NEEDS OR COMPLAINTS AT THIS TIME. CALL LIGHT IN REACH, CONTINUE TO MONITOR.
[2020-11-26 05:17] VITALS: BP 143/68; BP 164/76
[2020-11-26 06:40] LABS: HEMATOCRIT 55.4 % (37.0-47.0); HEMOGLOBIN 17.4 g/dl (12.0-16.0); IMMATURE GRANULOCYTES 0.2 % (0.0-5.0); MEAN CELL VOLUME 76.6 fL CALC (80.0-100.0); MEAN CORPUSCULAR HGB 24.1 pG CALC (26.0-32.0); MEAN CORPUSCULAR HGB CONC 31.4 g/dL CAL (32.0-36.0); NEUT# 3.77 thou/uL (2.00-7.15); RED BLOOD COUNT 7.23 mill/uL (4.20-5.60); RED CELL DISTRI WIDTH 17.4 % (11.5-15.5)
[2020-11-26 06:43] LABS: ALBUMIN 4.3 g/dL (3.2-5.0); ALKALINE PHOSPHATASE 88 u/l (38-126); ANION GAP 15 (6-22 (CALC)); BILIRUBIN, TOTAL 1.2 mg/dL (0.0-1.4); BUN 19 mg/dL (7-17); BUN/CREATININE RATIO 32 (12-20 (CALC)); CARBON DIOXIDE 30 mmol/l (22-30); CHLORIDE 91 mmol/l (95-108); CREATININE 0.6 mg/dL (0.5-1.0); GFR > 60 ML/MIN (>=60 (CALC)); GFR FOR AFR.AMER. > 60 ML/MIN (>=60 (CALC)); POTASSIUM 4.3 mmol/l (3.5-5.1); SGOT/AST 41 u/l (14-36); SODIUM 132 mmol/l (137-146); TOTAL PROTEIN 7.7 g/dL (6.3-8.2)
--- NOTE | 2020-11-26 07:00 | NUR ---
SHIFT CHANGE REPORT, PT SLEEPING BUT AROUSES TO VERBAL STIMULI, ORIENTED, DENIES PAIN AT THIS TIME, O2 @ 3L VIA NC IN PLACE, TELE MONITOR IN PLACE, ASSISTED PT TO BR AND BACK TO BED THEN SET UP FOR MEAL. PT C/O NAUSEA AND ANTIMETIC GIVEN, CALL LI IN REACH AND BED LOCKED IN LOWEST POSITION, WILL CONTINUE TO MONITOR.
[2020-11-26] MEDS ORDERED: METFORMIN HCL1000 MG PO (09:08)
[2020-11-26] MEDS ORDERED: LASIX 40 MG TAB40 MG PO (09:09)
[2020-11-26] MEDS ORDERED: METOPROL TAR25 MG PO (09:09)
[2020-11-26] MEDS ORDERED: SYMBICORT1 AE1 IN (09:10)
[2020-11-26] MEDS ORDERED: PROVENTIL108 MCG/AC PO (09:11)
[2020-11-26] MEDS ORDERED: LISINOPRIL2.5 MG PO (09:12)
[2020-11-26] MEDS ORDERED: LEVOTHYROXIN50 MCG PO (09:12)
[2020-11-26] MEDS ORDERED: METOLAZONE2.5 MG PO (09:13)
[2020-11-26 09:14] VITALS: BP 163/70
[2020-11-26] MEDS ORDERED: GLYXAMBI 25-5 M1 TAB PO (09:14)
[2020-11-26] MEDS ORDERED: PAROXETINE40 M1 PO (09:14)
[2020-11-26 10:15] VITALS: BP 158/74
--- NOTE | 2020-11-26 12:00 | NUR ---
SLEEPING BUT AWAKENS TO VERBAL STIMULI, REFUSED LUNCH MEAL, ASSISTED TO BR THEN BACK TO BED, ALL NEEDS ADDRESSED.
[2020-11-26 15:05] VITALS: BP 155/68
--- NOTE | 2020-11-26 16:00 | NUR ---
SLEEPING, REMAINS LETHARGIC ALL DAY BUT ORIENTED, CALL LI IN REACH.
[2020-11-26 19:00] VITALS: BP 154/70
--- NOTE | 2020-11-26 20:00 | NUR ---
PHYSICAL ASSESMENT COMPLETE. PT C/O NAUSEA AND ABDOMINAL DISCOMFORT. SCHEDULED MEDICATIONS AND PRN MEDICATION ADMINISTERED, SEE E-MAR. PT DENIES ANY NEEDS AT THIS TIME. PLAN OF CARE REVIEWED, PT DENIES QUESTIONS, VERBALIZES UNDERSTANDING. ITEMS WITHIN REACH, BED LOCKED IN LOW POSITION W/ BEDRAILS UP X2. CALL LI WITHIN REACH, AGREES TO CALL PRN.
[2020-11-27] VITALS (7 sets, daily range): BP systolic 72–160; BP diastolic 43–68
[2020-11-27 05:48] LABS: HEMATOCRIT 55.4 % (37.0-47.0); HEMOGLOBIN 17.2 g/dl (12.0-16.0); MEAN CORPUSCULAR HGB 24.2 pG CALC (26.0-32.0); RED BLOOD COUNT 7.1 mill/uL (4.20-5.60); RED CELL DISTRI WIDTH 17.3 % (11.5-15.5)
[2020-11-27 06:10] LABS: ANION GAP 16 (6-22 (CALC)); BUN 19 mg/dL (7-17); BUN/CREATININE RATIO 29 (12-20 (CALC)); CARBON DIOXIDE 30 mmol/l (22-30); CHLORIDE 90 mmol/l (95-108); CREATININE 0.7 mg/dL (0.5-1.0); GFR > 60 ML/MIN (>=60 (CALC)); GFR FOR AFR.AMER. > 60 ML/MIN (>=60 (CALC)); MAGNESIUM 1.7 mg/dL (1.6-2.3); SODIUM 131 mmol/l (137-146)
--- NOTE | 2020-11-27 07:18 | NUR ---
SHIFT CHANGE REPORT, PT IN BED RESTING, ALERT ANDD ORIENTED X 3, DENIES PAIN, IVF INFUSING, TELE MONITOR IN PLACE, CALL LI IN REACH AND BED LOCKED IN LOWEST POSITION.-
--- NOTE | 2020-11-27 08:03 | NUR ---
SHIFT CHANGE REPORT, PT AWAKE ALERT AND ORIENTED SITTING UP AT BEDSIDE, NO C/O DISCOMFORT, REPORTS SHE DOES NOT HAVE ANY APPETITE FOR THE THE PAST FEW DAYS AND EVERYTHING MAKES HER NAUTIOUS, WHEN ASKED WHAT SHE WOULD RATHER HAVE SHE GAVE NO OPTIONS. O2 @ 3L VIA NC IN PLACE, TELE MONITOR IN PLACE, CALL LI IN REACH AND BED LOCKED IN LOWEST POSITION. WILL CONSULT BEER MAKER (ALE) TO ASSESS DIETARY NEEDS.
--- NOTE | 2020-11-27 10:45 | NUR ---
ASSISTED TO BR THEN TO RECLINER, SITTING UP IN RECLINER AT THIS TIME, ALL NEEDS MET/ADDRESSED, CALL LI IN REACH.
[2020-11-27] MEDS ORDERED: PROTONIX40 MG PO (11:13)
--- NOTE | 2020-11-27 12:47 | NUR ---
ROUNDED AND DISCUSSED POC WITH PT, PT IMMEDIATELY TOOK OFF HEART MONITOR AND GOT DRESSED TO LEAVE, INFORMED SYSTEM IS DOWN AND WE HAVE TO WAIT UNTIL SYSTEM IS BACK UP TO PROCESS ORDERS. ORDERS WERE PROCESSED IN TIMELY MANNER AND PT INSISTED SHE WANTED TO GO DOWNSTAIRS TO WAIT FOR HER SPOUSE, SHE WAS ADVISED OF OUR POLICY OF NOT LEAVING PT BY THEMSELF TO WAIT FOR TRANSPORTATION BUT SHE INSISTED SHE HAS DONE IT ALL THE TIME AND WANTED TO DO THAT NOW, REQUEST WAS HONORED AND PT ADVISED OUR HOSPITAL WILL NOT BE RESPONSIBLE FOR ANY ADVERSE EVENT SHE MIGHT ENCOUNTER WHILE WAITING OFF UNIT FOR RIDE AND SHE STATED UNDERSTANDING.
--- NOTE | 2020-11-27 12:53 | NUR ---
Discharge instructions given. Patient verbalizes understanding of same. Discharged in stable condition via Wheelchair to Home with spouse. All belongings sent with pt.
[2021-01-07] MEDS ORDERED: BUSPAR10 M1 PO (09:24)
[2021-01-07] MEDS ORDERED: TRAMADOL HCL50 MG PO ×2 (10:08→10:10)
== END 2020-11-27 12:37 | disposition home or self-care (01) ==
LOC: ED 17:03 → ED-I 18:30 → ED 18:53 → MS2 18:53
PROVIDERS: Emergency Medicine; Nurse Practitioner; Nurse Practitioner Family; ADMIT Hospitalist; ATTEND Hospitalist
DX: R07.9 Chest pain, unspecified (principal); E87.1 Hypo-osmolality and hyponatremia; I11.0 Hypertensive heart disease with heart failure; I50.9 Heart failure, unspecified; I25.10 Atherosclerotic heart disease of native coronary artery without angina pectoris; J43.9 Emphysema, unspecified; I45.10 Unspecified right bundle-branch block; E11.42 Type 2 diabetes mellitus with diabetic polyneuropathy; E11.51 Type 2 diabetes mellitus with diabetic peripheral angiopathy without gangrene; E11.621 Type 2 diabetes mellitus with foot ulcer; L97.529 Non-pressure chronic ulcer of other part of left foot with unspecified severity; I27.20 Pulmonary hypertension, unspecified; F32.9 Major depressive disorder, single episode, unspecified; F41.9 Anxiety disorder, unspecified; D68.0 Von Willebrand disease; E66.9 Obesity, unspecified; E03.9 Hypothyroidism, unspecified; E78.5 Hyperlipidemia, unspecified; H40.9 Unspecified glaucoma; F17.200 Nicotine dependence, unspecified, uncomplicated; Z99.81 Dependence on supplemental oxygen; Z79.4 Long term (current) use of insulin; Z68.32 Body mass index [BMI] 32.0-32.9, adult; Z20.822 Contact with and (suspected) exposure to COVID-19
CPT/HCPCS: G0378; J1650; Q9967; S0164

== ENCOUNTER 2021-04-21 16:49 | Inpatient (IN) | payer OTHER ==
[~2021-04-21] VITALS: Ht 157.5 cm; Wt 82.7 kg
[~2021-04-21 16:49] MED LIST changes: +BUSPAR10 M1 PO; +GLYXAMBI 25-5 M1 TAB PO; +LASIX 40 MG TAB40 MG PO; +METOLAZONE2.5 MG PO; +PAROXETINE40 M1 PO; +PROTONIX40 MG PO; +PROVENTIL108 MCG/AC PO
--- NOTE | 2021-04-21 16:55 | NUR ---
PT TO ROOM VIA WC AND TRANSFERED INDEPENDENTLY
[2021-04-21 17:35] LABS: HEMATOCRIT 54.7 % (37.0-47.0); HEMOGLOBIN 18.6 g/dl (12.0-16.0); IMMATURE GRANULOCYTES 0.2 % (0.0-5.0); MEAN CELL VOLUME 85.1 fL CALC (80.0-100.0); MEAN CORPUSCULAR HGB 28.9 pG CALC (26.0-32.0); NEUT# 3.47 thou/uL (2.00-7.15); RED BLOOD COUNT 6.43 mill/uL (4.20-5.60); RED CELL DISTRI WIDTH 13.7 % (11.5-15.5)
[2021-04-21 17:46] LABS: ALBUMIN 4.7 g/dL (3.2-5.0); ANION GAP 13 (6-22 (CALC)); BUN 29 mg/dL (7-17); BUN/CREATININE RATIO 31 (12-20 (CALC)); CARBON DIOXIDE 35 mmol/l (22-30); CHLORIDE 87 mmol/l (95-108); CREATININE 0.9 mg/dL (0.5-1.0); GFR > 60 ML/MIN (>=60 (CALC)); GFR FOR AFR.AMER. > 60 ML/MIN (>=60 (CALC)); POTASSIUM 3.7 mmol/l (3.5-5.1); SODIUM 131 mmol/l (137-146); TOTAL PROTEIN 8.6 g/dL (6.3-8.2)
--- NOTE | 2021-04-21 17:50 | NUR ---
PATIENT RESTING QUIETLY. TOLERATING BIPAP WELL. DENIES ANY NEEDS AT THIS TIME.
[2021-04-21 17:52] LABS: ALKALINE PHOSPHATASE 139 u/l (38-126); SGOT/AST 72 u/l (14-36)
--- NOTE | 2021-04-21 18:25 | NUR ---
RESPIRATORY AT BEDSIDE FOR DUONEBS.
--- NOTE | 2021-04-21 19:11 | NUR ---
REPORT GIVEN BY PEYTON HIGGINS
--- NOTE | 2021-04-21 19:15 | NUR ---
PT UPDATED ON PLAN OF CARE; STATES NO ASSISTANCE AT THIS TIME
--- NOTE | 2021-04-21 20:37 | NUR ---
PT LAYING COMFORTABLY ON ED COT; AWARE URINE SAMPLE IS NEEDED
--- NOTE | 2021-04-21 22:48 | NUR ---
PT AWARE OF PLAN OF CARE; PT DENIES ANY ASSISTANCE AT THIS TIME
--- NOTE | 2021-04-22 01:05 | NUR ---
PT SLEEPING COMFORTABLY ON ED COT
--- NOTE | 2021-04-22 01:59 | NUR ---
PT SLEEPING COMFORTABLY ON ED COT
--- NOTE | 2021-04-22 03:08 | NUR ---
PT ASKING FOR BED UPSTAIRS; PT AWARE OF WAIT TIME AND NOTIFIED OF TRYING TO PROVIDE URINE SAMPLE; PT ATTEMPTING TO PROVIDE URINE SAMPLE
[2021-04-22 03:28] LABS: URINE BILIRUBIN - DIPSTICK NEGATIVE (NEGATIVE); URINE BLOOD DIPSTICK NEGATIVE (NEGATIVE); URINE COLOR YELLOW; URINE GLUCOSE - DIPSTICK 500 mg/dL (NEGATIVE); URINE KETONE NEGATIVE (NEGATIVE); URINE LEUK ESTERASE NEGATIVE (NEGATIVE); URINE NITRITE - DIPSTICK NEGATIVE (Negative); URINE PH 5.5 (4.5-8.0); URINE PROTEIN - DIPSTICK TRACE mg/dL (NEG-TRACE); URINE SPECIFIC GRAVITY >=1.030; URINE UROBILINOGEN - DIPSTICK 0.2 E.U./dL (0.2)
--- NOTE | 2021-04-22 05:30 | NUR ---
PATIENT REQUESTING BIPAP BE REMOVED. PLACED ON 5L/NC WITH SPO2 90%.
--- NOTE | 2021-04-22 05:32 | NUR ---
PT PLACED ON 5L VIA NASAL CANNULA PER RT DUE TO PT REQUEST OF BEING OFF BIPAP TEMPORARILY
[2021-04-22 06:35] LABS: HEMOGLOBIN 17.1 g/dl (12.0-16.0); MEAN CELL VOLUME 84.3 fL CALC (80.0-100.0); MEAN CORPUSCULAR HGB 28.8 pG CALC (26.0-32.0); MEAN CORPUSCULAR HGB CONC 34.2 g/dL CAL (32.0-36.0); RED BLOOD COUNT 5.93 mill/uL (4.20-5.60); RED CELL DISTRI WIDTH 13.3 % (11.5-15.5)
[2021-04-22 06:39] LABS: BUN 42 mg/dL (7-17); BUN/CREATININE RATIO 37 (12-20 (CALC)); CALCULATED LDLCHOLESTEROL 79 mg/dL (62-129 (CALC)); CHLORIDE 90 mmol/l (95-108); CHOLESTEROL HDL RATIO 4.2 (<4.4 (CALC)); CREATININE 1.1 mg/dL (0.5-1.0); GFR 52 ML/MIN (>=60 (CALC)); GFR FOR AFR.AMER. > 60 ML/MIN (>=60 (CALC)); HDL CHOLESTEROL 32 mg/dL (>=40); MAGNESIUM 2.1 mg/dL (1.6-2.3); SODIUM 131 mmol/l (137-146); TOTAL TRIGLYCERIDES 112 mg/dl (30-149); VLDL CHOLESTROL 22 mg/dl (2-49 (CALC))
[2021-04-22 06:41] LABS: ANION GAP 21 (6-22 (CALC)); CARBON DIOXIDE 25 mmol/l (22-30); POTASSIUM 4.5 mmol/l (3.5-5.1); TOTAL CHOLESTEROL 133 mg/dl (0-199)
--- NOTE | 2021-04-22 06:45 | NUR ---
REPORT RECEIVED FROM ABBE TODD. CARE ASSUMED.
[2021-04-22 07:00] VITALS: BP 93/39
--- NOTE | 2021-04-22 07:00 | NUR ---
PATIENT RESTING UP IN CHAIR ON O2 5L NC. PATIENT IS ALERT AND ORIENTED X3. ADMISSION ASSESSMENT COMPLETED AT THIS TIME. IV PATENT X1. PLAN OF CARE DISCUSSED. CALL LIGHT IN REACH. WILL CONTINUE TO MONITOR.
--- NOTE | 2021-04-22 07:40 | NUR ---
PATIENT MEDICATED WITH AM MEDS AND SET UP FOR AM MEAL. WILL CONTINUE TO MONITOR.
--- NOTE | 2021-04-22 08:45 | NUR ---
DR PATEL AND GABRIELLE GONCALVES AT BEDSIDE AT THIS TIME TO DISCUSS PLAN OF CARE.
[2021-04-22 08:53] VITALS: BP 113/47
--- NOTE | 2021-04-22 10:09 | NUR ---
BELONGINGS SHEET COMPLETED. PT UP TO BSC WITHOUT ASSIST. REMAINS ON
--- NOTE | 2021-04-22 10:19 | NUR ---
REPORT RECEIVED FROM SEBLERN
--- NOTE | 2021-04-22 10:20 | NUR ---
REPORT CALLED TO KEVIN SEPULVEDA.
--- NOTE | 2021-04-22 10:35 | NUR ---
PT TO MEDSURG VIA WC ON 02 5L/M NC, TELE IV SITE HEALTHY. VSS. ROOM 289
--- NOTE | 2021-04-22 10:50 | NUR ---
PT ARRIVED TO MED/SURG ROOM 289 IN STABLE CONDITION VIA WC ACCOMPANIED BY PEYTON SHEPARD;PT AMBULATED TO BEDSIDE WTH A STEADY GAIT;VS OBTAINED;PT A&O X3, ORIENTED TO ROOM AND CALL LIGHT SYSTEM;PT DENIES ANY CURRENT PAIN OR DISCOMFORTS,PAIN SCALE AND REPORTING EDUCATED;RESPIRATIONS EVEN AND UNLABORED ON O2 @ 5L VIA NC, PT IS HOME DEPENDENT ON 5L;ABDOMEN DISTENDED/SOFT ON PALPATION AND ACTIVE IN ALL 4 QUADRANTS, LAST BM 04/21/21;WEAK PEDAL PULSES;SKIN INTACT;TELE MONITORING IN PLACE;#18G TO RAC FLUSHED AND PATENT,SITE APPEARS HEALTHY;ACCUCHECK 292, COVERED WITH SLIDING SCALE INSULIN PER ORDER;NICOTINE PATCH APPLIED TO RIGHT UPPER BACK;FALL AND ALLERGY BANDS APPLIED;PT REMAINS IN DROPLET PRECAUTIONS DUE TO FLU DX;PT ENCOURAGED TO CALL FOR ASSISTANCE IF NEEDED;CALL LIGHT IN REACH;WILL CONTINUE TO MONITOR
--- NOTE | 2021-04-22 11:03 | NUR ---
RT AT BEDSIDE ADMINISTERING TREATMENR.
[2021-04-22 11:09] VITALS: BP 124/60
--- NOTE | 2021-04-22 11:25 | NUR ---
PT TRANSPORTED TO [facility] IN STABLE CONDITION VIA WC ACCOMPANIED BY VOLUNTEER.
--- NOTE | 2021-04-22 11:45 | NUR ---
PT ARRIVED BACK TO MED/SURG ROOM 289 IN STABLE CONDITION VIA WC ACCOMPANIED BY VOLUNTEER.
--- NOTE | 2021-04-22 12:30 | NUR ---
PT RESTING AT BEDSIDE WATCHING TV;RESPIRATIONS EVEN AND UNLABORED ON O2 @ 5L VIA NC;PT DENIES ANY CURRENT PAIN OR NEEDS;TELE MONITORING IN PLACE;IV SITE PATENT;PT ENCOURAGED TO CALL FOR ASSISTANCE IF NEEDED;CALL LIGHT IN REACH;WILL CONTINUE TO MONITOR
--- NOTE | 2021-04-22 12:35 | NUR ---
LAB AT BEDSIDE
[2021-04-22] MEDS ORDERED: ATORVASTATIN CA40 MG PO (14:30)
[2021-04-22] MEDS ORDERED: LEVEMIR FL100 UNIT/M SC (14:33)
[2021-04-22] MEDS ORDERED: BUSPAR15 MG PO (14:34)
[2021-04-22] MEDS ORDERED: NOVOLOG100 UNIT SC (14:34)
--- NOTE | 2021-04-22 15:11 | NUR ---
RT AT BEDSIDE ADMINISTERING BREATHING TX.
--- NOTE | 2021-04-22 15:55 | NUR ---
PT OOB IN THE RESTROOM;PT DENIES ANY CURRENT PAIN OR DISCOMFORTS;TELE MONITORING IN PLACE;IV SITE PATENT;RESPIRATIONS EVEN AND UNLABORED ON O2 @5L VIA NC;PT ENCOURAGED TO CALL FOR ASSISTANCE IF NEEDED;CALL LIGHT IN REACH;WILL CONTINUE TO MONITOR
[2021-04-22 16:34] VITALS: BP 128/68
--- NOTE | 2021-04-22 17:58 | NUR ---
STAGE 2 ULCER TO LEFT GREAT TOE NOTED. PT REPORTS SHE FOLLOWS WITH WOUND CARE. SITE CLEANSED WITH SALINE AND DRESSING APPLIED. PHOTOGRAPH PLACED IN CHART.
--- NOTE | 2021-04-22 18:45 | NUR ---
RT AT BEDSIDE ADMINISTERING BREATHING TX.
[2021-04-22 19:00] VITALS: BP 143/54
--- NOTE | 2021-04-22 20:15 | NUR ---
PATIENT ALERT AND ORIENTED, CAN MAKE NEEDS KNOWN, SENIOR VICE PRESIDENT AND CHIEF INFORMATION OFFICER COMPLETED, CALL LIGHT WITHIN REACH, BED IN LOW POSITION, ORIENTED TO ROOM AND SURROUNDINGS
[2021-04-23] VITALS: BP 131/53
--- NOTE | 2021-04-23 00:16 | NUR ---
PATIENT RESTING IN BED, DENIES PAIN AT THIS TIME, SAFETY PRECAUTIONS MAINTAINED, IVs PATENT, CALL LIGHT WITHIHN REACH, CAN MAKE NEEDS KNOWN
[2021-04-23 04:00] VITALS: BP 136/63
[2021-04-23 06:10] LABS: HEMATOCRIT 49.5 % (37.0-47.0); HEMOGLOBIN 17.2 g/dl (12.0-16.0); MEAN CELL VOLUME 83.6 fL CALC (80.0-100.0); MEAN CORPUSCULAR HGB 29.1 pG CALC (26.0-32.0); MEAN CORPUSCULAR HGB CONC 34.7 g/dL CAL (32.0-36.0); RED BLOOD COUNT 5.92 mill/uL (4.20-5.60); RED CELL DISTRI WIDTH 13.1 % (11.5-15.5)
[2021-04-23 06:34] LABS: ANION GAP 17 (6-22 (CALC)); BUN 41 mg/dL (7-17); BUN/CREATININE RATIO 52 (12-20 (CALC)); CARBON DIOXIDE 30 mmol/l (22-30); CHLORIDE 93 mmol/l (95-108); CREATININE 0.8 mg/dL (0.5-1.0); GFR > 60 ML/MIN (>=60 (CALC)); GFR FOR AFR.AMER. > 60 ML/MIN (>=60 (CALC)); MAGNESIUM 2.4 mg/dL (1.6-2.3); SODIUM 135 mmol/l (137-146)
--- NOTE | 2021-04-23 07:15 | NUR ---
REPORT RECEIVED FROM DOMITILA,PEYTON
[2021-04-23 07:30] VITALS: BP 134/63
--- NOTE | 2021-04-23 07:50 | NUR ---
PT RESTING IN SEMI FOWLERS POSITION,A&O X3;VS OBTAINED AND ASSESSMENT COMPLETED;PT DENIES ANY CURRENT PAIN OR DISCOMFORTS,PAIN SCALE AND REPORTING EDUCATED;RESPIRATIONS EVEN AND UNLABORED ON O2 @ 5L VIA NC, NON-PRODUCTIVE COUGH;ABDOMEN DISTENDED/SOFT ON PALPATION AND ACTIVE IN ALL 4 QUADRANTS;WEAK PEDAL PULSES,DRESSING TO LEFT GREAT TOE PATENT;#18G TO RAC FLUSHED AND PATENT,SITE APPEARS HEALTHY;TELE MONITORING IN PLACE;ACCUCHECK 217, COVERED WITH SLIDING SCALE INSULIN;PT REMAINS IN DROPLET PRECAUTONS DUE TO INFLUENZA A POSITION;PT ENCOURAGED TO CALL FOR ASSISTANCE IF NEEDED;FALL PRECAUTIONS IN PLACE WITH BED IN THE LOWEST POSITION AND CALL LIGHT IN REACH;WILL CONTINUE TO MONITOR
--- NOTE | 2021-04-23 10:26 | NUR ---
AND CORDELIA ANRP AT BEDSIDE DISCUSSING POC.
--- NOTE | 2021-04-23 10:27 | NUR ---
RT AT BEDSIDE ADMINISTERING BREATHING TX.
[2021-04-23 10:42] VITALS: BP 115/53
--- NOTE | 2021-04-23 11:40 | NUR ---
PT RESTING IN SEMI FOWLERS POSITION;RESPIRATIONS EVEN AND UNLABORED ON O2 @ 5L VIA NC;PT DENIES ANY CURRENT PAIN OR DISCOMFORTS;TELE MONITORING IN PLACE;IV SITE PATENT;ACCUCHECK 341, PT COVERED WITH SLIDING SCALE INSULIN PER ORDER;PT EDUCATED ON PLANS TO D/C HOME THIS AFTERNOON AND VERBALIZES UNDERSTADING;CALL LIGHT IN REACH;WILL CONTINUE TO MONITOR
[2021-04-23] MEDS ORDERED: PREDNISONE50 MG PO (13:03)
[2021-04-23] MEDS ORDERED: TAM75CAP PO (13:03)
[2021-04-23] MEDS ORDERED: ZITHROMAX250 MG PO (13:04)
--- NOTE | 2021-04-23 13:30 | NUR ---
ALL DISCHARGE INSTRUCTIONS PROVIDED AT THIS TIME;PT INSTRUCTED TO F/U WITH PCP IN THE NEXT WEEK. COMPLETE DOSES OF ZITHRO,TAMIFLU AND PREDNISONE WHICH WERE SENT TO PHARMACY;CONTINUE HOME BREATHING TREATMENTS AND TO STOP SMOKING;PT VERBALIZES UNDERSTANDING AND DENIES ANY ADDITIONAL QUESTIONS OR NEEDS;IV SITE REMOVED WITH CATHETER INTACT AND TELE MONITORING D/C;WC TO BE PROVIDED FOR D/C HOME;SPOUSE TO TRANSPORT PT HOME;WILL CONTINUE TO MONITOR
--- NOTE | 2021-04-23 13:45 | NUR ---
Discharge instructions given. Patient verbalizes understanding of same. Discharged in stable condition via Wheelchair to Home with . All belongings sent with pt. PT TRANSPORTED TO [facility] IN STABLE CONDITION VIA WC ACCOMPANIED BY STAFF. ALL BELONGINGS LEFT WITH PT.SPOUSE TO TRANSPORT PT HOME.
== END 2021-04-23 13:45 | disposition home or self-care (01) | DRG 190 ==
LOC: ED 16:49 → ED-I 17:58 → ED 17:58 → ED-I 18:00 → ED 19:06 → ED-I 19:07 → MS2 19:07
PROVIDERS: Family Medicine; Nurse Practitioner; ADMIT Internal Medicine; ATTEND Internal Medicine
PROC: 5A09357 Assistance with Respiratory Ventilation, Less than 24 Consecutive Hours, Continuous Positive Airway Pressure (ICD-10-PCS; principal; 2021-04-21)
DX: J43.9 Emphysema, unspecified (principal); J10.08 Influenza due to other identified influenza virus with other specified pneumonia; J12.9 Viral pneumonia, unspecified; D68.0 Von Willebrand disease; J96.12 Chronic respiratory failure with hypercapnia; J96.11 Chronic respiratory failure with hypoxia; I11.0 Hypertensive heart disease with heart failure; I50.9 Heart failure, unspecified; I25.10 Atherosclerotic heart disease of native coronary artery without angina pectoris; E11.51 Type 2 diabetes mellitus with diabetic peripheral angiopathy without gangrene; E11.42 Type 2 diabetes mellitus with diabetic polyneuropathy; I27.20 Pulmonary hypertension, unspecified; F32.A Depression, unspecified; F41.9 Anxiety disorder, unspecified; E66.9 Obesity, unspecified; H40.9 Unspecified glaucoma; Z68.24 Body mass index [BMI] 24.0-24.9, adult; E03.9 Hypothyroidism, unspecified; E78.5 Hyperlipidemia, unspecified; F17.200 Nicotine dependence, unspecified, uncomplicated; R51.9 Headache, unspecified; W19.XXXA Unspecified fall, initial encounter; Z79.84 Long term (current) use of oral hypoglycemic drugs; Z95.1 Presence of aortocoronary bypass graft; Z99.81 Dependence on supplemental oxygen; Z20.822 Contact with and (suspected) exposure to COVID-19
CPT/HCPCS: S0164

== ENCOUNTER 2021-10-04 10:47 | Inpatient (IN) | payer OTHER ==
[~2021-10-04] VITALS: Ht 157.5 cm; Wt 79.0 kg
[2021-10-04] VITALS (39 sets, daily range): BP systolic 98–129; BP diastolic 43–62
[~2021-10-04 10:47] MED LIST changes: +ATORVASTATIN CA40 MG PO; +BUSPAR15 MG PO; +NOVOLOG100 UNIT SC; +TAM75CAP PO; +ZITHROMAX250 MG PO
--- NOTE | 2021-10-04 10:53 | NUR ---
PATIENT TO ROOM 14 VIA WHEELCHAIR
[2021-10-04 11:32] LABS: HEMATOCRIT 54.8 % (37.0-47.0); HEMOGLOBIN 17.1 g/dl (12.0-16.0); IMMATURE GRANULOCYTES 1.1 % (0.0-5.0); MEAN CELL VOLUME 82.3 fL CALC (80.0-100.0); MEAN CORPUSCULAR HGB 25.7 pG CALC (26.0-32.0); MEAN CORPUSCULAR HGB CONC 31.2 g/dL CAL (32.0-36.0); NEUT# 5.25 thou/uL (2.00-7.15); RED BLOOD COUNT 6.66 mill/uL (4.20-5.60); RED CELL DISTRI WIDTH 19.5 % (11.5-15.5)
[2021-10-04 11:43] LABS: ALBUMIN 4.2 g/dL (3.2-5.0); ALKALINE PHOSPHATASE 103 u/l (38-126); ANION GAP 12 (6-22 (CALC)); BILIRUBIN, TOTAL 0.8 mg/dL (0.0-1.4); BUN/CREATININE RATIO 33 (12-20 (CALC)); CARBON DIOXIDE 32 mmol/l (22-30); CHLORIDE 93 mmol/l (95-108); CREATININE 0.6 mg/dL (0.5-1.0); GFR FOR AFR.AMER. > 60 ML/MIN (>=60 (CALC)); GFR OTHER RACES > 60 ML/MIN (>=60 (CALC)); POTASSIUM 4.4 mmol/l (3.5-5.1); SGOT/AST 28 u/l (14-36); SODIUM 132 mmol/l (137-146); TOTAL PROTEIN 7.2 g/dL (6.3-8.2)
[2021-10-04 11:57] LABS: BUN 20 mg/dL (7-17)
--- NOTE | 2021-10-04 12:00 | NUR ---
Reassessment of patient completed. No distress noted.
[2021-10-04] MEDS ORDERED: LORAZEPAM0.5 MG PO (12:33)
[2021-10-04] MEDS ORDERED: HYDROXYZINE HYD10 MG (12:34)
[2021-10-04] MEDS ORDERED: VITAMIN D3 COMPLETE (12:34)
--- NOTE | 2021-10-04 13:15 | NUR ---
PATIENT ASSISTED WITH USE PHONE TO SPEAK WITH HER
--- NOTE | 2021-10-04 14:07 | NUR ---
REPORT CALLED TO ICU
--- NOTE | 2021-10-04 15:38 | NUR ---
PT ARRIVED ALERT AND ORIENTED. FOLLOWING COMMANDS. ON BIPAP AT 16REPORTS/8 AT 50%, O2SAT 90%. PT WAS ABLE TO COME OFF OF BIPAP AND PLACED ON 6L NC. PT O2 SAT 88% TO 89% AT THE TIME. PT WAS ABLE TO TAKE WATER, MEDICATION AND FOOD. PT DOES DESAT ON EXERSION. PT PLACED BACK ON BIPAP AND IS RESTING IN BED. PTS VITAL SIGNS WITHIN NORMAL LIMITS. SAFETY PRECATIONS ARE IN PLACE. CALL LIGHT AND PERSON BELONGINGS WITHIN REACH. PT BEING CLOSELY MONITORED.
--- NOTE | 2021-10-04 16:15 | NUR ---
PT REQUESTED THAT BIPAP BE REMOVED. PT EDUCATED ON PURPOSE OF BIPAP. PT STATES, "I WANT IT OFF, AND I DON'T CARE." PT PLACED ON 6L NC. WILL CONTONIUE TO MONITOR CLOSELY.
--- NOTE | 2021-10-04 16:38 | NUR ---
BIPAP STANDBY. PLACED ON 6L NC.
--- NOTE | 2021-10-04 19:00 | NUR ---
BEDSIDE REPORT RECEIVED FROM Rosalinda SY RN, CARE OF PT ASSUMED AT THIS TIME.
--- NOTE | 2021-10-04 19:15 | NUR ---
PT ASSISTED FROM BED TO RECLINER BY John LAIRD CNA, PT TOLERATED TRANSFER WELL WITH MINIMAL INCREASE IN WORK OF BREATHING AND MOMENTARY DESTURATION TO 83-84%. PT RECOVERS QUICKLY AND IS SITTING UP IN RECLINER WITH REGULAR UNLBORED RESPIRATIONS AND SPO2 OF 90%.
--- NOTE | 2021-10-04 19:40 | NUR ---
POINT OF CARE GLUCOSE 245mg/dl.
--- NOTE | 2021-10-04 21:09 | NUR ---
PT ASSISTED TO BSC TO VOID AND BACK TO BED. PT TOLERATED WITH MILD INCREASE IN WORK OF BREATHING AND MOMENTARY DESATURATION TO 84%. PT IN NO DISTRESS. RECOVERS SPO2 QUICKLY. SP02 91-92% AT REST WITH REGULAR/UNLABORED RESPIRATIONS.
--- NOTE | 2021-10-04 21:25 | NUR ---
ORDER FOR PRN ANTITUSSIVE RECEIVED FROM DR. CIFUENTES.
--- NOTE | 2021-10-04 22:24 | NUR ---
PRN ANTITUSSIVE ADMINISTERED REQUESTED, SEE E-MAR, SNACK AND COFFEE PROVIDED REQUESTED.
[2021-10-05] VITALS (97 sets, daily range): BP systolic 110–154; BP diastolic 42–82
--- NOTE | 2021-10-05 | NUR ---
PT APPEARS TO BE SLEEPING COMFORTABLY. SPO2 93%.
--- NOTE | 2021-10-05 01:11 | NUR ---
PT REQUEST PRN MOM FOR CONSTIPATION. MOM ADMINISTERED REQUESTED, SEE E-MAR.
--- NOTE | 2021-10-05 03:00 | NUR ---
PT APPEARS TO BE SLEEPING COMFORTABLY. SPO2 95%.
--- NOTE | 2021-10-05 04:57 | NUR ---
Zion BROOKS AT BEDSIDE COLLECTING BLOOD WORK.
[2021-10-05 05:34] LABS: HEMATOCRIT 50.7 % (37.0-47.0); MEAN CELL VOLUME 82.2 fL CALC (80.0-100.0); MEAN CORPUSCULAR HGB 25.9 pG CALC (26.0-32.0); MEAN CORPUSCULAR HGB CONC 31.6 g/dL CAL (32.0-36.0); RED BLOOD COUNT 6.17 mill/uL (4.20-5.60); RED CELL DISTRI WIDTH 19.1 % (11.5-15.5)
[2021-10-05 05:48] LABS: ANION GAP 15 (6-22 (CALC)); BUN 31 mg/dL (7-17); BUN/CREATININE RATIO 39 (12-20 (CALC)); CARBON DIOXIDE 29 mmol/l (22-30); CHLORIDE 92 mmol/l (95-108); CREATININE 0.8 mg/dL (0.5-1.0); GFR FOR AFR.AMER. > 60 ML/MIN (>=60 (CALC)); GFR OTHER RACES > 60 ML/MIN (>=60 (CALC)); MAGNESIUM 2.2 mg/dL (1.6-2.3); POTASSIUM 4.9 mmol/l (3.5-5.1); SODIUM 131 mmol/l (137-146)
--- NOTE | 2021-10-05 08:00 | NUR ---
PT ALERT AND ORIENTED. PT WAS ABLE TO STAND AND USE THE BEDSIDE COMMODE. PT O2SAT REMAINED 89% EVEN TRANSFERRING TO THE COMMODE. PT CURRENTLY SITTING UP IN HER CHAIR. PT DOES NOT LOOK TO BE IN ANY DISTRESS. VITAL SIGNS WITHIN NORMAL LIMITS. CALL LIGHT AND PERSONAL POSSESSIONS WITHIN REACH.
--- NOTE | 2021-10-05 12:00 | NUR ---
NO CHANGE IN PT STATUS SINCE INITIAL ASSESSMENT. CALL LIGHT AND PERSONAL POSSESSIONS WITHIN HER REACH.
--- NOTE | 2021-10-05 13:15 | NUR ---
PT COMPLAINING OF NAUSEA AFTER HAVING LUNCH. RECEIVED ORDER FROM FOR ZOFRAN 4MG IV Q6H PRN.
--- NOTE | 2021-10-05 19:44 | NUR ---
RECEIVED PATIENT SITTING IN THE RECLINER , O2 6L NC IN USE. O2 SAT 94%. NO S/S OF DISTRESS NOTED.
[2021-10-06] VITALS (49 sets, daily range): BP systolic 110–152; BP diastolic 41–123
--- NOTE | 2021-10-06 04:09 | NUR ---
PATIENT SLEPING AT THIS TIME. o2 AT 2L NC IN USE. NO S/S OF DSTRESSNOTED. CALL LIGHT IN REACH.
[2021-10-06 05:41] LABS: HEMATOCRIT 51.8 % (37.0-47.0); HEMOGLOBIN 16.1 g/dl (12.0-16.0); MEAN CELL VOLUME 82.9 fL CALC (80.0-100.0); MEAN CORPUSCULAR HGB 25.8 pG CALC (26.0-32.0); MEAN CORPUSCULAR HGB CONC 31.1 g/dL CAL (32.0-36.0); RED BLOOD COUNT 6.25 mill/uL (4.20-5.60); RED CELL DISTRI WIDTH 19.8 % (11.5-15.5)
[2021-10-06 06:05] LABS: CHOLESTEROL HDL RATIO 2.6 (<4.4 (CALC)); MAGNESIUM 2.3 mg/dL (1.6-2.3)
--- NOTE | 2021-10-06 07:52 | NUR ---
PT IS SLEEPING, EASIALLY AROUSABLE. PT BREAKFAST TRAY PLACE ON PT BEDSIDE TABLE. PT STATES TO JUST LEAVE THERE SHE WILL EAT WHEN SHE WAKES UP. PT HAS NO SIGNS OF PAIN OR SOB. PT IS ON 6LNC. PT HAS CALL LIGHT NEAR AND SAFETY PRECAUTIONS ARE IN PLACE, WILL CONTINUE TO MONITOR.
--- NOTE | 2021-10-06 09:49 | NUR ---
PT ASSISTED TO BSC, MINIMAL ASSISTANCE NEEDED. PT LINEN CHANGED, PT HAD ACCIDENT IN BED, PT PROVIDED HYGEINE SUPPLIES TO WASH. PROVIDED NEW GOWN AND NEW UNDERWEAR.
[2021-10-06] MEDS ORDERED: LEVAQUIN750 M1 PO (12:29)
[2021-10-06] MEDS ORDERED: MEDDOSEPAK PO (12:29)
--- NOTE | 2021-10-06 14:20 | NUR ---
R'CD ORDERS TO D/C PT HOME. PT REQURIED NO ASSISTANCE GETTING DRESSED. SPOKE TO PT HE MELANIA HIS WAY. PT BELONGINGS PLACED IN BAGS AND GIVEN TO PATIENT. PT HAS SCRIPTS AND D/C SUMMARY. PT IS STABLE AND FEELS GOOD TO GO HOME. WILL ASSIST PT VIA W/C TO CAR.
== END 2021-10-06 14:30 | disposition home or self-care (01) | DRG 191 ==
LOC: ED 10:47 → ED-I 12:15 → ED 12:33 → ICU 12:34
PROVIDERS: Family Medicine; ADMIT Hospitalist; ATTEND Hospitalist
PROC: 5A09357 Assistance with Respiratory Ventilation, Less than 24 Consecutive Hours, Continuous Positive Airway Pressure (ICD-10-PCS; principal; 2021-10-04)
DX: J44.1 Chronic obstructive pulmonary disease with (acute) exacerbation (principal); D68.0 Von Willebrand disease; J06.9 Acute upper respiratory infection, unspecified; I11.0 Hypertensive heart disease with heart failure; I50.9 Heart failure, unspecified; I25.10 Atherosclerotic heart disease of native coronary artery without angina pectoris; E11.51 Type 2 diabetes mellitus with diabetic peripheral angiopathy without gangrene; I27.20 Pulmonary hypertension, unspecified; E11.42 Type 2 diabetes mellitus with diabetic polyneuropathy; E03.9 Hypothyroidism, unspecified; F32.A Depression, unspecified; F41.9 Anxiety disorder, unspecified; E78.5 Hyperlipidemia, unspecified; F17.210 Nicotine dependence, cigarettes, uncomplicated; Z79.84 Long term (current) use of oral hypoglycemic drugs; Z79.4 Long term (current) use of insulin; Z99.81 Dependence on supplemental oxygen; Z20.822 Contact with and (suspected) exposure to COVID-19
CPT/HCPCS: J1650

== ENCOUNTER 2021-11-08 15:31 | Emergency (ER) | payer OTHER ==
[~2021-11-08] VITALS: Ht 157.5 cm; Wt 76.0 kg
[~2021-11-08 15:31] MED LIST changes: +HYDROXYZINE HYD10 MG; +LORAZEPAM0.5 MG PO; +VITAMIN D3 COMPLETE
[2021-11-08 15:36] VITALS: BP 106/62
[2021-11-08 15:45] VITALS: BP 106/52
[2021-11-08 16:00] VITALS: BP 94/52
== END 2021-11-08 16:08 | disposition home or self-care (01) ==
LOC: ED 15:31
DX: U07.1 COVID-19 (principal); R09.89 Other specified symptoms and signs involving the circulatory and respiratory systems; R05.9 Cough, unspecified; R53.83 Other fatigue; R51.9 Headache, unspecified; I11.0 Hypertensive heart disease with heart failure; I50.9 Heart failure, unspecified; J44.9 Chronic obstructive pulmonary disease, unspecified; I27.20 Pulmonary hypertension, unspecified; I25.10 Atherosclerotic heart disease of native coronary artery without angina pectoris; E11.51 Type 2 diabetes mellitus with diabetic peripheral angiopathy without gangrene; E11.42 Type 2 diabetes mellitus with diabetic polyneuropathy; F41.9 Anxiety disorder, unspecified; F32.A Depression, unspecified; D68.0 Von Willebrand disease; E66.9 Obesity, unspecified; E03.9 Hypothyroidism, unspecified; E78.5 Hyperlipidemia, unspecified; F17.200 Nicotine dependence, unspecified, uncomplicated; Z79.84 Long term (current) use of oral hypoglycemic drugs

== ENCOUNTER 2022-12-06 16:08 | Emergency (ER) | payer SELFPAY ==
[~2022-12-06] VITALS: Ht 157.5 cm; Wt 81.0 kg
[2022-12-06] VITALS (11 sets, daily range): BP systolic 123–134; BP diastolic 56–82
[2022-12-06 17:01] LABS: BASO% 1.2 % (0-3); EOS% 0.8 % (0-8); HEMATOCRIT 56.3 % (37.0-47.0); IMMATURE GRANULOCYTES 0.5 % (0.0-5.0); LYMPH% 15.4 % (15-41); MEAN CORPUSCULAR HGB CONC 28.4 g/dL CAL (32.0-36.0); MONO% 8.1 % (2-13); NEUT# 4.92 thou/uL (2.00-7.15); RED BLOOD COUNT 8.01 mill/uL (4.20-5.60)
[2022-12-06 17:03] LABS: MEAN CELL VOLUME 70.3 fL CALC (80.0-100.0)
[2022-12-06 17:20] LABS: D-DIMER 1.28 mg/L (0.19-0.60)
[2022-12-06 17:23] LABS: ALBUMIN 4.1 g/dL (3.2-5.0); ALKALINE PHOSPHATASE 80 u/l (38-126); CHLORIDE 87 mmol/l (95-108); GFR FOR AFR.AMER. > 60 ML/MIN (>=60 (CALC)); GFR OTHER RACES 57 ML/MIN (>=60 (CALC)); POTASSIUM 4.7 mmol/l (3.5-5.1); SGOT/AST 28 u/l (14-36); TOTAL PROTEIN 7.1 g/dL (6.3-8.2)
[2022-12-06 17:25] LABS: C-REACTIVE PROTEIN 0.7 mg/dL (0-0.9)
[2022-12-06 17:26] LABS: ANION GAP 14 (6-22 (CALC)); BILIRUBIN, TOTAL 1.3 mg/dL (0.02-1.3); BUN 44 mg/dL (7-17); BUN/CREATININE RATIO 44 (12-20 (CALC)); CARBON DIOXIDE 29 mmol/l (22-30); SODIUM 125 mmol/l (137-146)
[2022-12-06 18:15] LABS: INTERNATIONAL NORMALIZED RATIO 1.2 RATIO (0.7-1.3); PROTHROMBIN TIME 12.1 SECONDS (9.0-12.5)
[2022-12-06 19:04] LABS: URINE BILIRUBIN - DIPSTICK NEGATIVE (NEGATIVE); URINE COLOR YELLOW; URINE GLUCOSE - DIPSTICK NEGATIVE (NEGATIVE); URINE KETONE Negative (NEGATIVE); URINE PH 5.5 (4.5-8.0); URINE PROTEIN - DIPSTICK 100 mg/dL (NEG-TRACE); URINE SPECIFIC GRAVITY 1.025; URINE UROBILINOGEN - DIPSTICK 0.2 E.U./dL (0.2)
[2022-12-06 19:05] LABS: URINE BLOOD DIPSTICK NEGATIVE (NEGATIVE); URINE LEUK ESTERASE SMALL (NEGATIVE); URINE NITRITE - DIPSTICK NEGATIVE (Negative)
[2022-12-06 19:07] LABS: URINE RBC 0-2 RBC/hpf (0-5)
[2022-12-06 19:08] LABS: URINE SQUAMOUS EPITHELIAL CELL FEW EPI/hpf (0-FEW)
[2022-12-06] MEDS ORDERED: LEVAQUIN750 M1 PO (19:40)
[2022-12-06] MEDS ORDERED: PREDNISONE50 MG PO (19:40)
== END 2022-12-06 21:38 | disposition home or self-care (01) | DRG 190 ==
LOC: ED 16:08
PROVIDERS: Family Medicine
DX: J44.1 Chronic obstructive pulmonary disease with (acute) exacerbation (principal); J18.9 Pneumonia, unspecified organism; J44.0 Chronic obstructive pulmonary disease with (acute) lower respiratory infection; I87.313 Chronic venous hypertension (idiopathic) with ulcer of bilateral lower extremity; L97.921 Non-pressure chronic ulcer of unspecified part of left lower leg limited to breakdown of skin; L97.911 Non-pressure chronic ulcer of unspecified part of right lower leg limited to breakdown of skin; L97.429 Non-pressure chronic ulcer of left heel and midfoot with unspecified severity; I11.0 Hypertensive heart disease with heart failure; I50.9 Heart failure, unspecified; I25.10 Atherosclerotic heart disease of native coronary artery without angina pectoris; D68.00 Von Willebrand disease, unspecified; I73.9 Peripheral vascular disease, unspecified; F41.9 Anxiety disorder, unspecified; F32.A Depression, unspecified; E03.9 Hypothyroidism, unspecified; E78.5 Hyperlipidemia, unspecified; E11.42 Type 2 diabetes mellitus with diabetic polyneuropathy; F17.200 Nicotine dependence, unspecified, uncomplicated; E11.621 Type 2 diabetes mellitus with foot ulcer; Z99.81 Dependence on supplemental oxygen; Z79.84 Long term (current) use of oral hypoglycemic drugs
CPT/HCPCS: Q9967

== ENCOUNTER 2024-01-01 14:19 | Emergency (ER) | payer OTHER ==
[~2024-01-01] VITALS: Ht 157.5 cm; Wt 84.3 kg
[~2024-01-01 14:19] MED LIST changes: +CEPHALEXIN500 M1 PO; +D325 MCG PO; +PANTOPRAZOLE SO40 M3 PO; +SENNA S1 TAB PO
[2024-01-01] MEDS ORDERED: methylPREDNISolone SODIUM SUCC 125 MG/2 ML SDV IV ONE (14:55)
[2024-01-01] MEDS ORDERED: IPRATROPIUM-Albuterol 0.5MG-2.5MG/3 ML NEB ONE (14:55)
[2024-01-01 15:11] LABS: BASO% 0.8 % (0-3); EOS% 3.4 % (0-8); HEMATOCRIT 45.4 % (37.0-47.0); HEMOGLOBIN 15.3 g/dl (12.0-16.0); IMMATURE GRANULOCYTES 0.2 % (0.0-5.0); LYMPH% 18.1 % (15-41); MEAN CELL VOLUME 83.8 fL CALC (80.0-100.0); MEAN CORPUSCULAR HGB 28.2 pG CALC (26.0-32.0); MEAN CORPUSCULAR HGB CONC 33.7 g/dL CAL (32.0-36.0); MONO% 7.6 % (2-13); NEUT# 3.51 thou/uL (2.00-7.15); NEUT% 69.9 % (42-76); RED BLOOD COUNT 5.42 mill/uL (4.20-5.60); RED CELL DISTRI WIDTH 12.7 % (11.5-15.5)
[2024-01-01 15:19] LABS: ALBUMIN 4.4 g/dL (3.2-5.0); POTASSIUM 3.9 mmol/l (3.5-5.1); TOTAL PROTEIN 7.8 g/dL (6.3-8.2)
[2024-01-01 15:24] LABS: INTERNATIONAL NORMALIZED RATIO 1.2 RATIO (0.7-1.3)
[2024-01-01] MEDS ORDERED: IPRATROPIU0.5 MG/3 M IN (16:22)
[2024-01-01] MEDS ORDERED: LEVOFLOXACIN500MG PO (16:22)
[2024-01-01] MEDS ORDERED: SYMBICORT 80-4.5MCG PO (16:24)
[2024-01-01 16:47] VITALS: BP 116/58
== END 2024-01-01 16:46 | disposition home or self-care (01) | DRG 191 ==
LOC: ED 14:19
PROVIDERS: Nurse Practitioner Family
DX: J44.1 Chronic obstructive pulmonary disease with (acute) exacerbation (principal); R91.8 Other nonspecific abnormal finding of lung field; D68.00 Von Willebrand disease, unspecified; I11.0 Hypertensive heart disease with heart failure; I50.9 Heart failure, unspecified; E11.42 Type 2 diabetes mellitus with diabetic polyneuropathy; I25.10 Atherosclerotic heart disease of native coronary artery without angina pectoris; E11.51 Type 2 diabetes mellitus with diabetic peripheral angiopathy without gangrene; F41.9 Anxiety disorder, unspecified; F32.A Depression, unspecified; E66.9 Obesity, unspecified; E03.9 Hypothyroidism, unspecified; E78.5 Hyperlipidemia, unspecified; F17.200 Nicotine dependence, unspecified, uncomplicated; Z99.81 Dependence on supplemental oxygen